=== PATIENT | female | born 1935 | race Caucasian/White ===

== ENCOUNTER 2016-06-29 13:03 | Outpatient (CLI) | payer MEDICARE, OTHER | END 2016-06-29 13:04 | disposition home or self-care (01) | DX: E11.39 Type 2 diabetes mellitus with other diabetic ophthalmic complication (principal) ==

== ENCOUNTER 2016-09-11 14:45 | Outpatient (CLI) | payer MEDICARE, OTHER | END 2016-09-11 14:46 | disposition home or self-care (01) | LOC: LAB.R 14:45 | PROVIDERS: ATTEND Family Medicine | DX: R41.0 Disorientation, unspecified (principal) | CPT/HCPCS: 87086 ==

== ENCOUNTER 2016-09-11 15:02 | Outpatient (CLI) | payer MEDICARE, OTHER ==
[2016-09-11 19:20] LABS: BASOPHILS # (AUTO) 0.1 10^3/uL (0.0-0.1); BASOPHILS % (AUTO) 0.8 %; EOSINOPHILS # (AUTO) 0.2 10^3/uL (0.0-0.7); EOSINOPHILS % (AUTO) 1.8 %; HCT - HEMATOCRIT 40.2 % (37.0-47.0); HGB - HEMOGLOBIN 13.1 g/dL (12.0-16.0); LYMPHOCYTES # (AUTO) 3.6 10^3/uL (1.5-3.5); LYMPHOCYTES % (AUTO) 41.5 %; MEAN CORPUSCULAR HGB CONC 32.7 g/dL (32.0-36.0); MEAN CORPUSCULAR VOLUME 94.7 fL (81.0-99.0); MEAN PLATELET VOLUME 7.7 fL (7.9-10.8); MONOCYTES # (AUTO) 0.6 10^3/uL (0.0-1.0); NEUTROPHILS # (AUTO) 4.2 10^3/uL (1.5-6.6); NEUTROPHILS % (AUTO) 48.9 %; NUCLEATED RED BLOOD CELLS AUTO 0.1 /100WBC; RED BLOOD COUNT 4.25 10^6/uL (4.20-5.40); RED CELL DISTRIBUTION WIDTH 13.1 % (12.0-15.0); UNCORRECTED WHITE BLOOD COUNT 8.6 x10^3/uL; WHITE BLOOD COUNT 8.6 x10^3/uL (4.8-10.8)
[2016-09-11 19:29] LABS: ALBUMIN/GLOBULIN RATIO 1.4 (1.0-2.2); BILIRUBIN,TOTAL 0.5 mg/dL (0.2-1.0); CALCIUM 9.9 mg/dL (8.5-10.3); CREATININE 0.6 mg/dL (0.4-1.0); POTASSIUM 4.2 mmol/L (3.5-5.0); TOTAL PROTEIN 7.2 g/dL (6.7-8.2)
[2016-09-11 19:34] LABS: HEMOGLOBIN A1C 1.15 g/dL
== END 2016-09-11 23:59 | disposition home or self-care (01) ==
LOC: LAB.WCP 15:02
PROVIDERS: ATTEND Family Medicine
DX: R41.0 Disorientation, unspecified (principal)
CPT/HCPCS: 36415; 80053; 83036; 85025; 87086

== ENCOUNTER 2016-12-14 16:15 | Outpatient (CLI) | payer MEDICARE, OTHER | END 2016-12-14 16:16 | LOC: LAB.R 16:15 | PROVIDERS: ATTEND Family Medicine | DX: R41.0 Disorientation, unspecified (principal) | CPT/HCPCS: 87086 ==

== ENCOUNTER 2017-09-05 11:20 | Outpatient (CLI) | payer MEDICARE, OTHER | END 2017-09-05 11:21 | disposition critical access hospital (66) | LOC: EMS 11:20 | PROVIDERS: ATTEND Surgery | DX: S01.112A Laceration without foreign body of left eyelid and periocular area, initial encounter (principal); W18.30XA Fall on same level, unspecified, initial encounter; Y92.22 Religious institution as the place of occurrence of the external cause | CPT/HCPCS: A0425; A0429 ==

== ENCOUNTER 2017-09-05 11:37 | Emergency (ER) | payer MEDICARE, OTHER ==
--- NOTE | 2017-09-05 12:13 | ED Physician Documentation ---
PD HPI HEAD INJURY - Stated complaint Stated Complaint: FALL - Chief complaint Chief Complaint: Trauma Hd/Nk - History obtained from History obtained from: Patient, Family, EMS - History of Present Illness Mechanism of head injury: Fell (She slipped on gravel coming out of [facility] and fell forward injuring her head. She has no other injuries. 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 She denies any pain. She has a laceration on the forehead. Also a little scrape on the right knee but there is no pain there. 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 Neuro: Craniotomy HEENT: Cataracts - Present Medications Home Medications: Ambulatory Orders Medication Instructions Recorded Confirmed Insulin Glargine,Hum.rec.anlog 18 unit SQ QPM 07/07/13 02/01/15 [Lantus] Metformin HCl [Metformin HCl ER] 1,000 mg PO BIDWM 07/07/13 02/01/15 Pravastatin Sodium 40 mg PO QPM 07/07/13 02/01/15 Aspirin [Aspir 81] 81 mg PO DAILY 02/01/15 02/01/15 Docusate Sodium [Stool Softener] 250 mg PO DAILY 02/01/15 02/01/15 Insulin Lispro [Humalog Kwikpen] 6 unit SQ QDBREAKFAST 02/01/15 02/01/15 Insulin Lispro [Humalog Kwikpen] 8 unit SQ BIDWM 02/01/15 02/01/15 Polyethylene Glycol 3350 [Miralax] 17 gm PO DAILY PRN 02/01/15 02/01/15 - Allergies Allergies/Adverse Reactions: Allergies Allergy/AdvReac Type Severity Reaction Status Date / Time tetanus toxoid, adsorbed Allergy Unknown Verified 12/11/14 16:17 - Social History Does the pt smoke?: No Smoking Status: Never smoker Does the pt drink ETOH?: No Does the pt have substance abuse?: No - Immunizations Immunizations are current?: Yes PD ED PE NORMAL - Vitals Vital signs reviewed: Yes - General General: Alert and oriented X 3, No acute distress - HEENT HEENT: Other (There is a shallow U-shaped laceration measuring about 2-1/2 cm on the forehead with an underlying hematoma and abrasion. The anterior chamber of the right eye is opacified and she is unable to see out of it. The left pupil is round and reactive and her extraocular movements are intact. She has no diplopia looking in any direction. There is also a small lac just to the right of the right nares.) - Neck Neck: Other (She is maintained in a c-collar pending imaging given mechanism and advanced age.) - Cardiac Cardiac: RRR, No murmur - Respiratory Respiratory: No respiratory distress, Clear bilaterally - Abdomen Abdomen: Normal bowel sounds, Soft, Non tender - Back Back: No CVA TTP, No spinal TTP - Derm Derm: Normal color, Warm and dry - Extremities Extremities: No edema, No calf tenderness / cord - Neuro Neuro: Alert and oriented X 3, Normal speech - Psych Psych: Normal mood, Normal affect Results - Vitals Vitals: Vital Signs - 24 hr 09/05/17 09/05/17 11:42 13:44 Temperature 36.5 C 36.0 C L Heart Rate 90 84 Respiratory 18 18 Rate Blood Pressure 139/78 H 133/88 H O2 Saturation 93 100 Oxygen O2 Source Room air - Rads (name of study) CT Head Radiology: EMP read contemporaneously (Slight concern for NPH, old hemorrhage or cavernoma in the inferior cerebellum and a right frontal scalp contusion) CT C spoine Radiology: EMP read contemporaneously (Multilevel degenerative changes without acute disease) Procedures - Laceration (location) facial Length in cm: 3 Wound type: Other (2 cm laceration of the right forehead and 1 cm laceration near the right nares) Wound Preparation: Irrigated copiously NS Skin layer closure: Dermabond Other: No: Tetanus UTD (But held given allergy) Complexity: Simple PD MEDICAL DECISION MAKING - ED course ED course: Wounds were cleansed and Dermabonded, CT of the head and C-spine were negative, except she and the family were Counseled on the potential finding of normal pressure hydrocephalus and primary care follow-up was advised. She was ambulatory here without issue. Departure - Departure Disposition: 01 Home, Self Care Clinical Impression: Fall from ground level Facial laceration Qualifiers: Encounter type: initial encounter Qualified Code(s): S01.81XA - Laceration without foreign body of other part of head, initial encounter Concussion Qualifiers: Encounter type: initial encounter Loss of consciousness presence/duration: without LOC Qualified Code(s): S06.0X0A - Concussion without loss of consciousness, initial encounter Condition: Good Record reviewed to determine appropriate education?: Yes Instructions: ED Head Injury Closed, ED Laceration Facial Skin Glue Comments: Call your doctor to arrange a follow-up appointment, make the next available appointment. In the interim, return anytime if worse or if new symptoms develop. Your blood pressure was elevated today on check into the emergency department. This does not mean that you have hypertension, it is a common phenomenon to come to the emergency department and have elevated blood pressure. I recommend that you see your primary care physician within the week to have it rechecked when you are feeling better. Discharge Date/Time: 09/05/17 13:59
--- NOTE | 2017-09-05 13:14 | CT Report ---
EXAM: CT CERVICAL SPINE WITHOUT CONTRAST DATE: 09/05/2017 12:46 PM. HISTORY: Head injury. Neck pain. COMPARISONS: None. TECHNIQUE: Thin-section axial images were acquired of the cervical spine without contrast. Post-proce ssing: Coronal and sagittal reformats. Other: None. In accordance with CT protocol optimization, one or more of the following dose reduction techniques w ere utilized for this exam: automated exposure control, adjustment of mA and/or KV based on patient s ize, or use of iterative reconstructive technique. FINDINGS: Alignment: Minimal 1-2 mm anterolisthesis at C34 and C4-C5, likely degenerative. Alignment is otherwi se normal. Bones: No fracture or bone lesion. Interspace Levels/Facets: Multilevel moderate cervical disk and facet degeneration with disk degeneration most pronounced at C6 -C7, and facet degeneration most pronounced at the mid to lower cervical levels bilaterally. Musculature: Normal. No fatty atrophy. Other: The paravertebral and prevertebral soft tissues are unremarkable. The lung apices are clear. IMPRESSION: 1. No definite acute fracture or malalignment. 2. Multilevel cervical degeneration. [facility] Referring Provider Line: [phone] SITE ID: [id number]
--- NOTE | 2017-09-05 13:23 | CT Report ---
EXAM: CT HEAD EXAM DATE: 09/05/2017 12:46 PM. CLINICAL HISTORY: Head injury. COMPARISON: Brain MRI 07/24/2014. TECHNIQUE: Multiaxial CT images were obtained from the foramen magnum to the vertex. Reformats: Coron al. IV contrast: None. In accordance with CT protocol optimization, one or more of the following dose reduction techniques w ere utilized for this exam: automated exposure control, adjustment of mA and/or KV based on patient s ize, or use of iterative reconstructive technique. FINDINGS: Parenchyma: There is a region with coarse calcification measuring approximately 15 x 10 mm at the med ial left cerebellar hemisphere and left vermis corresponding to a previously identified region of aldo ceptibility artifact possibly site of prior hemorrhage versus cavernoma. No acute intraparenchymal he morrhage. No evidence of mass, midline shift, or CT findings of acute infarction. Cabral-white differen tiation is distinct. Moderate diffuse chronic microangiopathic white matter changes are evident. Extraaxial Spaces: Normal for age. No subdural or epidural collections identified. Ventricles: The ventricles and cortical sulci are enlarged, which may be due to volume loss, however somewhat out of proportion to the degree of sulcal widening, as before. Sinuses and orbits: Imaged paranasal sinuses, orbits, and mastoids show no significant abnormality. Bones: No evidence of fracture or calvarial defect. Other: Right frontal scalp contusion. IMPRESSION: 1. No definite acute intracranial abnormality. 2. Similar ventriculomegaly somewhat out of proportion to the degree of sulcal widening. NPH is a tona gnostic consideration. 3. Grossly similar partially calcified left inferior cerebellar/vermis lesion, possibly old hemorrhag e or cavernoma. 4. Right frontal scalp contusion. [facility] Referring Provider Line: [phone] SITE ID: [id number]
[2017-09-05 13:44] VITALS: BP 133/88
== END 2017-09-05 13:59 | disposition home or self-care (01) ==
LOC: EDUNIT# → ED 11:37
DX: S01.81XA Laceration without foreign body of other part of head, initial encounter (principal); S06.0X0A Concussion without loss of consciousness, initial encounter; W01.0XXA Fall on same level from slipping, tripping and stumbling without subsequent striking against object, initial encounter; Y92.22 Religious institution as the place of occurrence of the external cause; R03.0 Elevated blood-pressure reading, without diagnosis of hypertension; E11.9 Type 2 diabetes mellitus without complications; E78.00 Pure hypercholesterolemia, unspecified; H54.40 Blindness, one eye, unspecified eye; Z79.82 Long term (current) use of aspirin; Z79.4 Long term (current) use of insulin
CPT/HCPCS: 12013; 70450; 72125; 99283

== ENCOUNTER 2018-02-15 08:10 | Outpatient (CLI) | payer MEDICARE, OTHER ==
[2018-02-15 13:02] LABS: CALCIUM 9.9 mg/dL (8.5-10.3); CREATININE 0.6 mg/dL (0.4-1.0)
[2018-02-15 13:32] LABS: HB2 TOTAL 14.6 g/dL; HEMOGLOBIN A1C 1.09 g/dL
== END 2018-02-15 08:11 | disposition home or self-care (01) ==
LOC: LAB.WCP 08:10
PROVIDERS: ATTEND Family Medicine
DX: E11.39 Type 2 diabetes mellitus with other diabetic ophthalmic complication (principal)
CPT/HCPCS: 36415; 80048; 83036

== ENCOUNTER 2018-06-16 08:00 | Outpatient (CLI) | payer MEDICARE, OTHER ==
[2018-06-16 12:45] LABS: HB2 TOTAL 14.9 g/dL; HEMOGLOBIN A1C 1.03 g/dL; HEMOGLOBIN A1C % 8.5 % (4.6-6.2)
[2018-06-16 13:17] LABS: ALBUMIN 4.2 g/dL (3.2-5.5); ALBUMIN/GLOBULIN RATIO 1.2 (1.0-2.2); ALKALINE PHOSPHATASE 82 IU/L (42-121); ALT ALANINE AMINOTRANSFERASE 21 IU/L (10-60); AST ASPARTATE AMINOTRANSFERASE 23 IU/L (10-42); BILIRUBIN,TOTAL 0.8 mg/dL (0.2-1.0); BUN - BLOOD UREA NITROGEN 17 mg/dL (6-20); CALCIUM 9.8 mg/dL (8.5-10.3); CARBON DIOXIDE - CO2 27 mmol/L (21-32); CHLORIDE 99 mmol/L (101-111); CHOL/HDL RATIO 3.6 (<4.4); CHOLESTEROL 178 mg/dL; CREATININE 0.6 mg/dL (0.4-1.0); GFR - MDRD 96 (>89); GLUCOSE 104 mg/dL (70-100); HDL CHOLESTEROL 50 mg/dL; LDL CHOLESTEROL,CALCULATED 100 mg/dL; SODIUM 137 mmol/L (135-145); TOTAL PROTEIN 7.6 g/dL (6.7-8.2); VLDL CHOLESTEROL 28 mg/dL
== END 2018-06-16 23:59 ==
LOC: LAB.WCP 08:00
PROVIDERS: ATTEND Family Medicine
DX: E11.39 Type 2 diabetes mellitus with other diabetic ophthalmic complication (principal)
CPT/HCPCS: 36415; 80053; 80061; 83036; 83721

== ENCOUNTER 2018-09-08 11:06 | Outpatient (CLI) | payer MEDICARE, OTHER ==
--- NOTE | 2018-09-08 12:32 | XRAY Report ---
Reason: BUTTOCK PAIN Procedure Date: 09/08/2018 Accession Number: [id number] / [id number] Procedure: WCP - Pelvis 1 View CPT Code: FULL RESULT: EXAM: PELVIS RADIOGRAPHY EXAM DATE: 09/08/2018 11:01 AM. CLINICAL HISTORY: Buttock pain. COMPARISON: None. TECHNIQUE: 1 view. FINDINGS: Bones: Normal. No fracture or bone lesion. Joints: The visualized hip joints are moderately narrowed bilaterally with osteophytosis. The pubis symphysis, and sacroiliac joints are preserved. No subluxation. Soft Tissues: Chain sutures noted projecting over the pelvis and the patient is likely post ventral mesh hernia repair based on metallic retention clips. IMPRESSION: Degenerative changes of both hips. [facility]
== END 2018-09-08 11:07 | disposition home or self-care (01) ==
LOC: DI.WCP 11:06
PROVIDERS: ATTEND Family Medicine
DX: M16.0 Bilateral primary osteoarthritis of hip (principal); E11.8 Type 2 diabetes mellitus with unspecified complications
CPT/HCPCS: 36415; 72170; 80048; 83036

== ENCOUNTER 2018-09-08 11:57 | Outpatient (CLI) | payer MEDICARE, OTHER ==
[2018-09-08 19:36] LABS: CALCIUM 9.7 mg/dL (8.5-10.3); CREATININE 0.8 mg/dL (0.4-1.0)
[2018-09-08 19:37] LABS: HB2 TOTAL 14.8 g/dL; HEMOGLOBIN A1C 0.89 g/dL; HEMOGLOBIN A1C % 7.7 % (4.6-6.2)
== END 2018-09-08 11:58 | disposition home or self-care (01) ==
LOC: LAB.WCP 11:57
PROVIDERS: ATTEND Family Medicine
DX: E11.8 Type 2 diabetes mellitus with unspecified complications (principal)
CPT/HCPCS: 36415; 80048; 83036

== ENCOUNTER 2019-01-11 08:00 | Outpatient (CLI) | payer MEDICARE, OTHER ==
[2019-01-11 18:30] LABS: BASOPHILS # (AUTO) 0.1 10^3/uL (0.0-0.1); BASOPHILS % (AUTO) 0.5 %; EOSINOPHILS # (AUTO) 0.2 10^3/uL (0.0-0.7); EOSINOPHILS % (AUTO) 1.6 %; HGB - HEMOGLOBIN 13.5 g/dL (12.0-16.0); LYMPHOCYTES # (AUTO) 4.9 10^3/uL (1.5-3.5); LYMPHOCYTES % (AUTO) 39.6 %; MEAN CORPUSCULAR HEMOGLOBIN 30.4 pg (27.0-31.0); MEAN CORPUSCULAR HGB CONC 30.8 g/dL (32.0-36.0); MEAN CORPUSCULAR VOLUME 98.9 fL (81.0-99.0); MEAN PLATELET VOLUME 9.2 fL (7.9-10.8); MONOCYTES # (AUTO) 0.7 10^3/uL (0.0-1.0); MONOCYTES % (AUTO) 5.4 %; NEUTROPHILS # (AUTO) 6.6 10^3/uL (1.5-6.6); NEUTROPHILS % (AUTO) 52.5 %; PLT - PLATELET COUNT 320 10^3/uL (130-450); RED BLOOD COUNT 4.44 10^6/uL (4.20-5.40); RED CELL DISTRIBUTION WIDTH 13.4 % (12.0-15.0); WHITE BLOOD COUNT 12.5 x10^3/uL (4.8-10.8)
[2019-01-11 18:59] LABS: HB2 TOTAL 14.3 g/dL; HEMOGLOBIN A1C 0.76 g/dL
[2019-01-11 19:14] LABS: ALBUMIN/GLOBULIN RATIO 1.3 (1.0-2.2); ALKALINE PHOSPHATASE 85 IU/L (42-121); ALT ALANINE AMINOTRANSFERASE 21 IU/L (10-60); AST ASPARTATE AMINOTRANSFERASE 29 IU/L (10-42); BILIRUBIN,TOTAL 0.3 mg/dL (0.2-1.0); BUN - BLOOD UREA NITROGEN 17 mg/dL (6-20); CALCIUM 9.7 mg/dL (8.5-10.3); CARBON DIOXIDE - CO2 24 mmol/L (21-32); CHLORIDE 102 mmol/L (101-111); CHOL/HDL RATIO 3.3 (<4.4); CHOLESTEROL 170 mg/dL; CREATININE 0.9 mg/dL (0.4-1.0); GFR - MDRD 60 (>89); GLUCOSE 150 mg/dL (70-100); HDL CHOLESTEROL 51 mg/dL; LDL CHOLESTEROL,CALCULATED 80 mg/dL; LDL/HDL RATIO 1.6 (<4.4); SODIUM 136 mmol/L (135-145); TOTAL PROTEIN 7.2 g/dL (6.7-8.2); VLDL CHOLESTEROL 39 mg/dL
== END 2019-01-11 23:59 | disposition home or self-care (01) ==
LOC: LAB.WCP 08:00
PROVIDERS: ATTEND Family Medicine
DX: E11.65 Type 2 diabetes mellitus with hyperglycemia (principal)
CPT/HCPCS: 36415; 80053; 80061; 83036; 83721; 85025

== ENCOUNTER 2019-07-07 08:00 | Outpatient (CLI) | payer MEDICARE, OTHER | END 2019-07-07 23:59 | disposition home or self-care (01) | LOC: LAB.WCP 08:00 | PROVIDERS: ATTEND Family Medicine | DX: R30.0 Dysuria (principal) | CPT/HCPCS: 87077; 87086; 87181 ==

== ENCOUNTER 2019-07-08 17:11 | Outpatient (CLI) | payer MEDICARE, OTHER | END 2019-07-08 17:12 | disposition EMS.NT | LOC: EMS 17:11 | PROVIDERS: ATTEND Surgery | DX: R73.09 Other abnormal glucose (principal) ==

== ENCOUNTER 2019-07-10 17:39 | Outpatient (CLI) | payer MEDICARE, OTHER | END 2019-07-10 23:59 | disposition critical access hospital (66) | LOC: EMS 17:39 | PROVIDERS: ATTEND Surgery | DX: R06.00 Dyspnea, unspecified (principal); R05 Cough; R50.9 Fever, unspecified | CPT/HCPCS: A0425; A0427 ==

== ENCOUNTER 2019-07-10 18:00 | Inpatient (IN) | payer MEDICARE, OTHER ==
--- NOTE | 2019-07-10 18:22 | ED Physician Documentation ---
PD HPI DYSPNEA - Stated complaint Stated Complaint: DIFFICULTY BREATHING - Chief complaint Chief Complaint: Resp - History obtained from History obtained from: EMS - History of Present Illness Timing - onset: Other (This is a demented 84-year-old woman who presents from [facility]. Reportedly at her baseline she is demented but ambulatory without difficulty and feed herself. For unknown length of time she has had cough and fever. She is also been more altered than normal. 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 Neuro: Craniotomy HEENT: Cataracts - Present Medications Home Medications: Ambulatory Orders Medication Instructions Recorded Confirmed Insulin Glargine,Hum.rec.anlog 18 unit SQ QPM 07/07/13 02/01/15 [Lantus] Metformin HCl [Metformin HCl ER] 1,000 mg PO BIDWM 07/07/13 02/01/15 Pravastatin Sodium 40 mg PO QPM 07/07/13 02/01/15 Aspirin [Aspir 81] 81 mg PO DAILY 02/01/15 02/01/15 Docusate Sodium [Stool Softener] 250 mg PO DAILY 02/01/15 02/01/15 Insulin Lispro [Humalog Kwikpen] 6 unit SQ QDBREAKFAST 02/01/15 02/01/15 Insulin Lispro [Humalog Kwikpen] 8 unit SQ BIDWM 02/01/15 02/01/15 polyethylene glycoL 3350 [Miralax] 17 gm PO DAILY PRN 02/01/15 02/01/15 - Allergies Allergies/Adverse Reactions: Allergies Allergy/AdvReac Type Severity Reaction Status Date / Time tetanus toxoid, adsorbed Allergy Unknown Verified 07/10/19 18:08 - Social History Does the pt smoke?: No Smoking Status: Never smoker Does the pt drink ETOH?: No Does the pt have substance abuse?: No - Immunizations Immunizations are current?: Yes PD ED PE NORMAL - Vitals Vital signs reviewed: Yes - General General: Other (She is alert and oriented to person only not place or time or events) - HEENT HEENT: Other (Prosthetic eyeball) - Cardiac Cardiac: RRR, No murmur - Respiratory Respiratory: Other (Rhonchorous bilaterally) - Abdomen Abdomen: Normal bowel sounds, Soft, Non tender - Back Back: No CVA TTP, No spinal TTP - Derm Derm: Normal color, Warm and dry - Extremities Extremities: No edema, No calf tenderness / cord - Neuro Eye Opening: Spontaneous Motor: Obeys Commands Verbal: Confused GCS Score: 14 Results - Vitals Vitals: Vital Signs - 24 hr 07/10/19 07/10/19 18:08 18:38 Temperature 37.3 C Heart Rate 89 79 Respiratory 22 28 H Rate Blood Pressure 133/78 H 108/73 O2 Saturation 95 93 Oxygen O2 Source Room air - Labs Labs: Laboratory Tests 07/10/19 07/10/19 07/10/19 18:18 18:18 18:18 WBC 9.6 RBC 4.14 L Hgb 13.1 Hct 39.6 MCV 95.7 MCH 31.6 H MCHC 33.1 RDW 13.3 Plt Count 179 MPV 8.5 Neut # (Auto) 7.7 H Lymph # (Auto) 1.5 [place] # (Auto) 0.3 Eos # (Auto) 0.1 Baso # (Auto) 0.0 Absolute Nucleated RBC 0.00 Nucleated RBC % 0.0 Sodium 129 L Potassium 3.4 L Chloride 96 L Carbon Dioxide 22 Anion Gap 11.0 BUN 24 H Creatinine 0.6 Estimated GFR (MDRD) 96 Glucose 176 H Lactic Acid Calcium 9.1 Total Bilirubin 0.6 AST 39 ALT 18 Alkaline Phosphatase 87 B-Natriuretic Peptide 33 Total Protein 6.8 Albumin 3.5 Globulin 3.3 Albumin/Globulin Ratio 1.1 Lipase 28 Urine Color Urine Clarity Urine pH Ur Specific [place] Urine Protein Urine Glucose (UA) Urine Ketones Urine Occult Blood Urine Nitrite Urine Bilirubin Urine Urobilinogen Ur Leukocyte Esterase Urine RBC Urine WBC Ur Squamous Epith Cells Urine Bacteria Ur Microscopic Review Urine Culture Comments Influenza A (Rapid) Influenza B (Rapid) 07/10/19 07/10/19 07/10/19 18:18 18:40 18:55 WBC RBC Hgb Hct MCV MCH MCHC RDW Plt Count MPV Neut # (Auto) Lymph # (Auto) [place] # (Auto) Eos # (Auto) Baso # (Auto) Absolute Nucleated RBC Nucleated RBC % Sodium Potassium Chloride Carbon Dioxide Anion Gap BUN Creatinine Estimated GFR (MDRD) Glucose Lactic Acid 1.1 Calcium Total Bilirubin AST ALT Alkaline Phosphatase B-Natriuretic Peptide Total Protein Albumin Globulin Albumin/Globulin Ratio Lipase Urine Color YELLOW Urine Clarity CLEAR Urine pH 5.5 Ur Specific [place] >=1.030 H Urine Protein 30 H Urine Glucose (UA) 250 H Urine Ketones TRACE Urine Occult Blood TRACE-LYSE Urine Nitrite NEGATIVE Urine Bilirubin NEGATIVE Urine Urobilinogen 0.2 (NORMAL) Ur Leukocyte Esterase NEGATIVE Urine RBC 0-5 Urine WBC 0-3 Ur Squamous Epith Cells NONE SEEN Urine Bacteria None Seen Ur Microscopic Review INDICATED Urine Culture Comments NOT INDICATED Influenza A (Rapid) Negative Influenza B (Rapid) Negative - Rads (name of study) 1v chest Radiology: EMP read contemporaneously (NAD) PD MEDICAL DECISION MAKING - ED course ED course: This is an elderly 84-year-old woman who presents with hypoxemia, fever, altered mental status. Chest x-ray was negative. Coronavirus was sent. Her urine was normal. Subsequently had a CT angiogram of the chest notable for bilateral pulmonary emboli with moderate burden. No evidence for right heart strain. She was administered Lovenox. Given her advanced age and significant and persistent tachypnea she will be placed inpatient and Dr. Giordano is admitting. Departure - Departure Disposition: 66 [facility] DC/Xfer Clinical Impression: Hypoxemia Altered mental status Qualifiers: Altered mental status type: disorientation Qualified Code(s): R41.0 - Disorientation, unspecified Fever Qualifiers: Fever type: due to other condition Qualified Code(s): R50.81 - Fever presenting with conditions classified elsewhere Pulmonary embolism Qualifiers: Pulmonary embolism type: multiple subsegmental (without acute cor pulmonale) Qualified Code(s): I26.94 - Multiple subsegmental pulmonary emboli without acute cor pulmonale Condition: Serious Discharge Date/Time: 07/10/19 22:16
[2019-07-10 18:33] LABS: BASOPHILS % (AUTO) 0.2 %; EOSINOPHILS # (AUTO) 0.1 10^3/uL (0.0-0.7); EOSINOPHILS % (AUTO) 0.8 %; HGB - HEMOGLOBIN 13.1 g/dL (12.0-16.0); LYMPHOCYTES # (AUTO) 1.5 10^3/uL (1.5-3.5); LYMPHOCYTES % (AUTO) 15.6 %; MEAN CORPUSCULAR HEMOGLOBIN 31.6 pg (27.0-31.0); MEAN CORPUSCULAR HGB CONC 33.1 g/dL (32.0-36.0); MEAN CORPUSCULAR VOLUME 95.7 fL (81.0-99.0); MEAN PLATELET VOLUME 8.5 fL (7.9-10.8); MONOCYTES # (AUTO) 0.3 10^3/uL (0.0-1.0); NEUTROPHILS # (AUTO) 7.7 10^3/uL (1.5-6.6); PLT - PLATELET COUNT 179 10^3/uL (130-450); RED BLOOD COUNT 4.14 10^6/uL (4.20-5.40); RED CELL DISTRIBUTION WIDTH 13.3 % (12.0-15.0); WHITE BLOOD COUNT 9.6 x10^3/uL (4.8-10.8)
[2019-07-10 18:43] LABS: ALBUMIN 3.5 g/dL (3.2-5.5); ALBUMIN/GLOBULIN RATIO 1.1 (1.0-2.2); BILIRUBIN,TOTAL 0.6 mg/dL (0.2-1.0); CALCIUM 9.1 mg/dL (8.5-10.3); CREATININE 0.6 mg/dL (0.4-1.0); TOTAL PROTEIN 6.8 g/dL (6.7-8.2)
--- NOTE | 2019-07-10 19:08 | XRAY Report ---
Reason: dyspnea cough Procedure Date: 07/10/2019 Accession Number: [id number] / [id number] Procedure: XR - Chest 1 View X-Ray CPT Code: 28851 Final Report FULL RESULT: EXAM: CHEST RADIOGRAPHY EXAM DATE: 07/10/2019 06:34 PM. CLINICAL HISTORY: Dyspnea cough. COMPARISON: CHEST 2 VIEW PA/LAT 09/11/2016 2:23 PM. TECHNIQUE: 1 view. FINDINGS: Lungs/Pleura: Elevated left hemidiaphragm. No dense consolidation. No large effusion or pneumothorax. No pulmonary edema. Mediastinum: Heart and mediastinal contours are unremarkable. Other: None. IMPRESSION: No acute radiographic pulmonary abnormalities. [facility]
[2019-07-10 19:14] LABS: BILIRUBIN,URINE NEGATIVE (NEGATIVE); GLUCOSE, URINE (UA) 250 mg/dL (NEGATIVE); KETONES,URINE (UA) TRACE mg/dL (NEGATIVE); LEUKOCYTE ESTERASE, URINE NEGATIVE (NEGATIVE); NITRITE,URINE NEGATIVE (NEGATIVE); OCCULT BLOOD,URINE TRACE-LYSE (NEGATIVE); PH,URINE 5.5 PH (5.0-7.5); PROTEIN,URINE 30 mg/dL (NEGATIVE); UROBILINOGEN,URINE 0.2 (NORMAL) E.U./dL (NORMAL)
[2019-07-10 19:15] LABS: CLARITY,URINE CLEAR (CLEAR)
[2019-07-10] MEDS ORDERED: IOVERSOL 320 100 ML VIAL IVP ONE (20:15)
[2019-07-10 21:46] LABS: BACTERIA,URINE None Seen /HPF (None Seen); RBC,URINE 0-5 /HPF (0-5); SQUAMOUS EPITHELIAL CELL,UR NONE SEEN (<= Few)
[2019-07-10] MEDS ORDERED: ENOXAPARIN 60 MG/0.6 ML SYRINGE SUBQ STA (21:50)
[2019-07-10] MEDS ORDERED: SODIUM CHLORIDE FLUSH 0.9% 10 ML SYRINGE IVP PRN (21:59)
[2019-07-10] MEDS ORDERED: ONDANSETRON 4 MG/2 ML VIAL IVP PRN (21:59)
[2019-07-10] MEDS ORDERED: ACETAMINOPHEN 325 MG TABLET PO PRN (21:59)
[2019-07-10] MEDS ORDERED: POTASSIUM CHLORIDE 20 MEQ TABLET PO STA (22:04)
--- NOTE | 2019-07-10 22:07 | HISTORY & PHYSICAL EXAMINATION ---
Chief Complaint - Chief Complaint Chief Complaint: Shortness of breath History of Present Illness - Admitted From Admitted From:: [facility] - History Obtained From Records Reviewed: Yes History obtained from: Patient, ER Physician, ER Nurse, EMR Exam Limitations: Patient is still confused and poor historian. History of dementia. - History of Present Illness HPI Comment/Other: This is a 84-year-old female with a past medical history significant for type 2 diabetes mellitus on insulin, hypertension, dementia who presents today from [facility] due to worsening shortness of breath. Most of the history is obtained from the ER provider and nurse as the patient is a poor historian given her confusion and history of dementia. She was reportedly quite dyspneic at her assisted living facility and the staff was concerned about diminished breath sounds in the left lung field and low-grade fevers. When EMS arrived, they noted her blood glucose was in the 50s and she was more confused than usual. The patient reportedly at baseline is able to communicate well and feed herself. Initially in the emergency department, the ER provider told me that all she would say was just her name. Repeat blood glucose was elevated at greater than 200. EMS placed her on 4 L of oxygen upon their arrival and she was saturating 100%. While here in the emergency department, she saturating anywhere from 90% to 95% on room air. She is quite tachypneic with a respiratory rate in the low 30s to mid 30s. The patient herself states she does not feel short of breath and denies any chest pain. She is aware that I am a physician but she is not sure where she is at. She believes it was the year 1966. She cannot tell me what month it is. She reports no lower extremity edema or pain. She denies having a cough. Records from [facility] state that she was started on Macrobid 3 days ago for urinary tract infection. The patient denies having any difficulty urinating In the emergency department, her labs were relatively unremarkable except for sodium of 129 and a potassium of 3.4. BNP was normal as well as lactic acid. A chest x-ray is unremarkable except for an elevated left diaphragm. A CTA of the chest was obtained which showed pulmonary embolisms. She received Lovenox 60 mg in the emergency department. She was also checked for the novel coronavirus. Medicine was consulted for admission. The patient does have a POLST form which states she is a DNR with limited interventions. I did attempt to discuss goals of care with her although she is still slightly altered. She states she would like to focus on her comfort and would not want to be a full code. 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 - Past Surgical History General: reports: Bowel surgery /HAND SCRAPER: reports: Hysterectomy Neuro: reports: Craniotomy HEENT: reports: Cataracts - Family & Social History Family History Comment/Other: Unable to obtain a family history given her dementia and current confusion. Living arrangement: Assisted living Social History Notes: She resides at [facility]. I am unable to obtain any further social history given her dementia and current confusion. Meds/Allgy - Home Medications Home Medications: Ambulatory Orders Medication Instructions Recorded Confirmed Insulin Glargine,Hum.rec.anlog 18 unit SQ QPM 07/07/13 02/01/15 [Lantus] Metformin HCl [Metformin HCl ER] 1,000 mg PO BIDWM 07/07/13 02/01/15 Pravastatin Sodium 40 mg PO QPM 07/07/13 02/01/15 Aspirin [Aspir 81] 81 mg PO DAILY 02/01/15 02/01/15 Docusate Sodium [Stool Softener] 250 mg PO DAILY 02/01/15 02/01/15 Insulin Lispro [Humalog Kwikpen] 6 unit SQ QDBREAKFAST 02/01/15 02/01/15 Insulin Lispro [Humalog Kwikpen] 8 unit SQ BIDWM 02/01/15 02/01/15 polyethylene glycoL 3350 [Miralax] 17 gm PO DAILY PRN 02/01/15 02/01/15 - Allergies Allergies/Adverse Reactions: Allergies Allergy/AdvReac Type Severity Reaction Status Date / Time tetanus toxoid, adsorbed Allergy Unknown Verified 07/10/19 18:08 Review of Systems - Constitutional Constitutional: denies: Fatigue - Eyes Eyes: reports: Vision loss - Cardiovascular Cariovascular: denies: Chest pain - Respiratory Respiratory: denies: SOB at rest, SOB with exertion - Gastrointestinal Gastrointestinal: reports: Abdominal pain - Genitourinary Genitourinary: denies: Dysuria, Frequency - Neurological Neurological: denies: General weakness - All Other Systems All Other Systems: reports: Other (Review of systems is limited as the patient is confused and a poor historian.) Prior Level of Functionality: She resides at [facility] and is reportedly independent with ambulation and feeding herself. Exam - Vital Signs Reviewed Vital Signs: Yes Vital Signs: Vital Signs x48h Temp Pulse Resp BP Pulse Ox 07/10/19 18:38 79 28 H 108/73 93 07/10/19 18:08 37.3 C 89 22 133/78 H 95 - Physical Exam General Appearance: positive: Alert, Mild distress Eyes Bilateral: positive: Other (The right pupil is opacified.) ENT: positive: ENT inspection nml, Dry mucous membranes Neck: positive: Nml inspection Respiratory: positive: Other (Her breath sounds are diminished. She is tachypneic.). negative: No respiratory distress, Rales Cardiovascular: positive: Regular rate & rhythm. negative: Tachycardia, Bradycardia Abdomen: positive: Nml bowel sounds, No distention, Tenderness (Mild epigastric tenderness). negative: Guarding, Rebound Skin: positive: No rash, Warm, Dry Extremities: positive: No pedal edema Neurologic/Psychiatric: positive: Disoriented to place, Disoriented to time, Other (She is able to move all 4 extremities. There are no obvious focal motor deficits. Her speech is not slurred. She is oriented to self but is otherwise disoriented.). negative: Disoriented to person Conclusion/Plan - Problem List (1) Pulmonary embolism Conclusion/Plan: This is likely the etiology of her dyspnea. She is tachypneic in the low to mid 30s and hypoxic at times saturating down to 90% on room air. The etiology of the pulmonary embolism is not evident at the moment. We will attempt to obtain more history once the patient is more oriented. There is no evidence of her right heart strain on CTA. We will anticoagulate her with Lovenox 60 mg twice daily. Will obtain echocardiogram in the morning. Check Dopplers of the lower extremity. Check a troponin and EKG. We will monitor her on telemetry. Supplemental oxygen as needed for goal saturation greater than 92%. Given her reported fever at home, a swab was obtained from the novel coronavirus. She is afebrile since arrival to our emergency department. Qualifiers: Pulmonary embolism type: multiple subsegmental (without acute cor pulmonale) Qualified Code(s): I26.94 - Multiple subsegmental pulmonary emboli without a cute cor pulmonale (2) Altered mental status Conclusion/Plan: Suspect this is secondary to the hypoglycemic episode. Her blood sugar was as low as in the 50s. It is not greater than 150. Her mental status is improving but she still remains disoriented. She is talking more than upon her initial arrival to the emergency department.. She has no focal deficits on exam and therefore I feel a CT of the head would not be of benefit. Her LFTs are also normal should not suspect that she would have an elevated ammonia. At this time, we will continue to monitor her mental status. Avoid medications that may promote delirium. Delirium precautions. Monitor her blood glucose. Qualifiers: Altered mental status type: disorientation Qualified Code(s): R41.0 - Disorientation, unspecified (3) Type 2 diabetes mellitus with hypoglycemia Conclusion/Plan: She has type 2 diabetes mellitus for which she takes Lantus, Lispro, and metformin. She was hypoglycemic today in the 50s. Suspect this is the cause of her altered mental status.Her blood glucose is not greater than 150. We will hold her home insulin and metformin for the time being. Will resume in the morning if her blood sugar remained stable. Will check her blood sugars every 2 hours overnight. Carb controlled diet. We will check an A1c Qualifiers: Diabetes mellitus extermination supervisor insulin use: with extermination supervisor use Diabetes mellitus complication detail: without coma Qualified Code(s): E11.649 - Type 2 diabetes mellitus with hypoglycemia without coma; Z79.4 - prison (current) use of insulin (4) Hyponatremia Conclusion/Plan: This is likely hypovolemic hyponatremia she appears dry on exam. We will gently hydrate her with normal saline at 75 cc an hour. We will monitor her sodium. (5) UTI (urinary tract infection) Conclusion/Plan: He was diagnosed with a urinary tract infection approximately 3 days ago and started on Macrobid. Urinalysis today shows no suggestion of infection. Given her age, we will discontinue the Macrobid and hold off on resuming antibiotics at the moment. (6) Dementia Conclusion/Plan: Does have a history of dementia at baseline but is able to ambulate and feed herself on her own. Reportedly at baseline, she is quite talkative and able participate in conversation. She is currently altered but improving and suspect this is secondary to the hypoglycemia. We will continue to monitor her neurologic status (7) Hypertension Conclusion/Plan: She with a reported history of hypertension but is on any antihypertensives at home. She is currently normotensive. We will continue to monitor. (8) Hyperlipidemia Conclusion/Plan: She is on a statin at home which we will resume. - Lab Results Lab results reviewed: Yes Fish Bones: 07/11/19 06:28 07/10/19 18:18 - Diagnostic Imaging Results Diagnostic Imaging Results: positive: Final report reviewed, Read independently (CTA of the chest shows multiple bilateral subsegmental pulmonary embolism) Core Measures - Anticipated LOS I expect patient to be DC'd or transferred within 96 hours.: Yes - Issues Hospital Issues and Management Plan: 4-year-old female who presents with worsening dyspnea found to have pulmonary embolisms. She is quite tachypneic and hypoxic at times on room air. We will anticoagulate her with Lovenox and monitor for bleeding. She is also altered although this is improving. Suspect secondary to the hypoglycemia - DVT/VTE - Prophylaxis VTE/DVT Device ordered at admit?: No VTE/DVT Prophylaxis med ordered at admit?: Yes
[2019-07-10] MEDS ORDERED: DEXTROSE 10% 250 ML IV STA (22:42)
[2019-07-10] MEDS ORDERED: DEXTROSE 50% ABBOJECT 25 GM/50 ML SYRINGE ONE (22:50)
[2019-07-10] MEDS: SODIUM CHLORIDE 0.9% 1,000 ML IV SCH (23:01)
[2019-07-10] MEDS: SODIUM CHLORIDE FLUSH 0.9% 10 ML SYRINGE IVP SCH (23:41)
[2019-07-11] MEDS: POTASSIUM CHLOR 10 MEQ/100 ML 10 MEQ/100 ML BAG IV SCH ×2 (00:32→01:46)
--- NOTE | 2019-07-11 02:16 | Ultrasound Report ---
Reason: Pulmonary embolism. Procedure Date: 07/11/2019 Accession Number: [id number] / [id number] Procedure: US - Duplex Ext Veins Bilateral CPT Code: Final Report FULL RESULT: EXAM: BILATERAL LOWER EXTREMITY VENOUS ULTRASOUND EXAM DATE: 07/11/2019 01:30 AM CLINICAL HISTORY: Known pulmonary emboli, evaluate for embolic source. COMPARISON: 07/10/2019 8:36 PM. TECHNIQUE: Real-time sonographic vascular imaging was performed by the 3rd pressman through the lower extremities utilizing both color-flow and Doppler spectral analysis. Multiple tax compliance representative static images were saved for review. FINDINGS: Right: Common Femoral Vein (CFV): Normal. CFV-GSV Junction: Normal. Profunda Femoral Vein (PFV): Normal. Femoral Vein (FV) Prox: Normal. Femoral Vein (FV) Mid: Normal. Femoral Vein (FV) Dist: Normal. Popliteal Vein: Thrombosed. Posterior Tibial Veins: Thrombosed. Peroneal Veins: Thrombosed. Left: Common Femoral Vein (CFV): Partially thrombosed. Profunda Femoral Vein (PFV): Thrombosed. Femoral Vein (FV) Prox: Normal. Femoral Vein (FV) Mid: Normal. Femoral Vein (FV) Dist: Thrombosed. Popliteal Vein: Thrombosed. Posterior Tibial Veins: Thrombosed. Peroneal Veins: Thrombosed. Other: Approximately 3 x 0.5 x 1 cm right popliteal cyst. IMPRESSION: Exam positive for deep venous thrombosis bilaterally. RADIA
--- NOTE | 2019-07-11 06:27 | CT Report ---
Reason: DYSPNEA, PE PROTOCOL Procedure Date: 07/10/2019 Accession Number: [id number] / [id number] Procedure: CT - ANGIO CHEST W/WO CPT Code: Final Report FULL RESULT: EXAM: CT ANGIOGRAM CHEST. EXAM DATE: 07/10/2019 08:36 PM. CLINICAL HISTORY: Dyspnea. COMPARISON: CHEST 2 VIEW PA/LAT 09/11/2016 2:23 PM. TECHNIQUE: Routine helical imaging was performed through the chest in the pulmonary arterial phase. IV Contrast: OPTI-320, 80 mL. Reconstructions: Coronal 3-D MIP reconstructions. Sagittal and coronal. In accordance with CT protocol optimization, one or more of the following dose reduction techniques were utilized for this exam: automated exposure control, adjustment of mA and/or KV based on patient size, or use of iterative reconstructive technique. FINDINGS: Mediastinum: Positive for pulmonary emboli seen in the right main pulmonary artery extending into the right upper, middle and lower lobar pulmonary arteries. Segmental pulmonary emboli seen in the right upper pulmonary arteries. Left upper lobe anterior segmental and subsegmental pulmonary embolus. Motion artifact limits exam. No saddle embolus. No evidence for cor pulmonale. Mitral annular calcification. Coronary artery calcification is noted. No cardiomegaly. No mediastinal or hilar lymphadenopathy. No thoracic aortic aneurysm. Lungs: Motion artifact limited. Minimal bilateral lower lobe posterior consolidation most suggestive for atelectasis. Motion artifact limits the exam and lung infarction or infiltrate are not excluded. No pneumothorax. No pleural effusion. Upper abdomen: Calcified granuloma seen in the spleen. No acute findings are seen. Mild T11 superior endplate compression fracture with sclerosis, appears more chronic or subacute to chronic. IMPRESSION: 1. Positive for bilateral pulmonary emboli as described above, overall moderate pulmonary emboli burden. No evidence for cor pulmonale. 2. Motion artifact limits the exam and lung infarction or infiltrate are not excluded. 3.Mild T11 superior endplate compression fracture with sclerosis, appears more chronic or subacute to chronic. 4. See above. RADIA The critical result notification system was initiated by Dr. Aleisha Lind at 09:45 PM on 07/10/2019. The above critical result findings were discussed with Latha by Dr. Aleisha Lind at 09:48 PM on 07/10/2019.
[2019-07-11 06:39] LABS: BASOPHILS % (AUTO) 0.3 %; EOSINOPHILS # (AUTO) 0.2 10^3/uL (0.0-0.7); EOSINOPHILS % (AUTO) 3.5 %; HGB - HEMOGLOBIN 12.5 g/dL (12.0-16.0); LYMPHOCYTES # (AUTO) 2.3 10^3/uL (1.5-3.5); LYMPHOCYTES % (AUTO) 33.8 %; MEAN CORPUSCULAR HEMOGLOBIN 32.1 pg (27.0-31.0); MEAN CORPUSCULAR HGB CONC 33.2 g/dL (32.0-36.0); MEAN CORPUSCULAR VOLUME 96.7 fL (81.0-99.0); MEAN PLATELET VOLUME 8.3 fL (7.9-10.8); MONOCYTES # (AUTO) 0.5 10^3/uL (0.0-1.0); MONOCYTES % (AUTO) 6.6 %; NEUTROPHILS # (AUTO) 3.8 10^3/uL (1.5-6.6); NEUTROPHILS % (AUTO) 55.4 %; PLT - PLATELET COUNT 156 10^3/uL (130-450); RED CELL DISTRIBUTION WIDTH 13.3 % (12.0-15.0); WHITE BLOOD COUNT 6.9 x10^3/uL (4.8-10.8)
[2019-07-11 06:53] LABS: HB2 TOTAL 13.1 g/dL; HEMOGLOBIN A1C 0.59 g/dL; HEMOGLOBIN A1C % 6.3 % (4.6-6.2)
[2019-07-11 06:55] LABS: CREATININE 0.6 mg/dL (0.4-1.0); MAGNESIUM 1.7 mg/dL (1.7-2.8); PHOSPHORUS 2.9 mg/dL (2.5-4.6)
--- NOTE | 2019-07-11 08:40 | PHARMACY PROGRESS NOTE ---
- Best Possible Medication History Admit Date and Time: 07/10/19 2585 Processed by: Pharmacy Medication History completed: In progress Patient Interview: Pt unable to participate Secondary Source(s): Physician records, Pharmacy records, Insurance records [facility] used in addition to above sources. As the person ultimately responsible for medication therapy, providers are able to order a medication from an existing home medication list in [facility] via the "Reconcile Routine" prior to Confirmation of that medication by software support engineer. Such practice is discouraged except when the physician, in their clinical judgment, deems that a medical need exists for a medication without regard to previous use.
[2019-07-11] MEDS: ENOXAPARIN 60 MG/0.6 ML SYRINGE SUBQ SCH ×2 (09:09→21:19)
[2019-07-11] MEDS: SODIUM CHLORIDE FLUSH 0.9% 10 ML SYRINGE IVP SCH ×2 (09:09→17:01)
[2019-07-11] MEDS ORDERED: IOVERSOL 320 100 ML VIAL IVP ONE (11:38)
--- NOTE | 2019-07-11 12:45 | PROVIDER PROGRESS NOTE ---
Subjective - Prog Note Date Prog Note Date: 07/11/19 - Subjective Pt reports feeling: Improved Subjective: pt is comfortable sleeping. clinic pt did not present respiratory distress or SOB now. pt has no fever, chill. pt has 96% sat on 2 liter of O2. Current Medications - Current Medications Current Medications: Active Medications Acetaminophen (Tylenol) 650 mg PO Q4HR PRN PRN Reason: Pain 1 to 4 Enoxaparin Sodium (Lovenox) 60 mg SUBQ BID [facility] Last Admin: 07/11/19 09:09 Dose: 60 mg Sodium Chloride (Normal Saline 0.9%) 1,000 mls @ 75 mls/hr IV .[id number] [facility] Last Admin: 07/11/19 12:47 Dose: 75 mls/hr Ondansetron HCl (Zofran Inj) 4 mg IVP Q6HR PRN PRN Reason: Nausea / Vomiting Sodium Chloride (Normal Saline Flush 0.9%) 10 ml IVP PRN PRN PRN Reason: NEEDED PER PROVIDER ORDERS Sodium Chloride (Normal Saline Flush 0.9%) 10 ml IVP 0100,0900,1700 [facility] Last Admin: 07/11/19 09:09 Dose: Not Given Insulin Glargine,Hum.rec.anlog [Lantus] 25 unit SQ QPM 07/07/13 Metformin HCl [Metformin HCl ER] 1,000 mg PO BIDWM 07/07/13 Aspirin [Aspir 81] 81 mg PO DAILY 02/01/15 Docusate Sodium [Stool Softener] 250 mg PO BID PRN 02/01/15 Insulin Lispro [Humalog Kwikpen] 12 unit SQ QDBREAKFAST 02/01/15 Insulin Lispro [Humalog Kwikpen] 14 unit SQ QDLUNCH 02/01/15 polyethylene glycoL 3350 [Miralax] 17 gm PO Q2D PRN 02/01/15 Insulin Lispro [Humalog Kwikpen U-100] 2 - 6 unit SUBQ TIDWM PRN 07/11/19 Insulin Lispro [Humalog Kwikpen U-100] 20 unit SUBQ QDDINNER 07/11/19 Pravastatin [Pravachol] 40 mg PO QPM 07/11/19 Objective - Vital Signs/Intake & Output Reviewed Vital Signs: Yes Vital Signs: Vital Signs x48h Temp Pulse Resp BP BP Pulse Ox 07/11/19 12:44 36.4 C L 69 18 112/62 93 07/11/19 08:10 36.3 C L 68 24 116/68 96 07/11/19 05:11 73 18 126/85 H Intake & Output: Intake & Output 07/08/19 07/09/19 07/10/19 07/11/19 23:59 23:59 23:59 23:59 Intake Total 250 721.25 Balance 250 721.25 - Objective General Appearance: positive: No acute distress, Alert Eyes Bilateral: positive: Normal inspection, PERRL ENT: positive: ENT inspection nml, Pharynx nml, No signs of dehydration. n egative: Purulent nasal drainage Neck: positive: Nml inspection, Thyroid nml, No JVD, Trachea midline. negative: Thyromegaly, Lymphadenopathy (R), Lymphadenopathy (L), Stiff neck, Tracheal deviation Respiratory: positive: Chest non-tender, No respiratory distress. negative: Wheezes, Rales, Rhonchi Cardiovascular: positive: Regular rate & rhythm, No murmur, No gallop. negative: Irregularly irregular, Extrasystoles, Tachycardia, Bradycardia, JVD present, Systolic murmur, Diastolic murmur Peripheral Pulses: 2+ Radial (R), 2+ Radial (L), 2+ Dorsalis pedis (R), 2+ Dorsalis pedis (L) Abdomen: positive: Non-tender, No organomegaly, Nml bowel sounds, No distention. negative: Tenderness, Guarding, Rebound Back: positive: Nml inspection. negative: CVA tenderness (R), CVA tenderness (L) Skin: positive: Color nml, No rash, Warm, Dry. negative: Cyanosis, Diaphoresis, Pallor Extremities: positive: Non-tender, Nml appearance. negative: Calf tenderness, Marco's sign/cords Neurologic/Psychiatric: positive: Sensation nml. negative: Weakness, Sensory loss, Facial droop, Slurred/abnml speech - Lab Results Fish Bones: 07/11/19 06:28 07/11/19 06:28 Other Labs: Lab Results x24hrs 07/11/19 07/11/19 07/11/19 Range/Units 06:28 06:28 06:28 WBC 6.9 (4.8-10.8) x10^3/uL RBC 3.90 L (4.20-5.40) 10^6/uL Hgb 12.5 (12.0-16.0) g/dL Hct 37.7 (37.0-47.0) % MCV 96.7 (81.0-99.0) fL MCH 32.1 H (27.0-31.0) pg MCHC 33.2 (32.0-36.0) g/dL RDW 13.3 (12.0-15.0) % Plt Count 156 (130-450) 10^3/uL MPV 8.3 (7.9-10.8) fL Neut # (Auto) 3.8 (1.5-6.6) 10^3/uL Lymph # (Auto) 2.3 (1.5-3.5) 10^3/uL [place] # (Auto) 0.5 (0.0-1.0) 10^3/uL Eos # (Auto) 0.2 (0.0-0.7) 10^3/uL Baso # (Auto) 0.0 (0.0-0.1) 10^3/uL Absolute Nucleated RBC 0.00 x10^3/uL Nucleated RBC % 0.0 /100WBC Sodium 133 L (135-145) mmol/L Potassium 3.6 (3.5-5.0) mmol/L Chloride 100 L (101-111) mmol/L Carbon Dioxide 23 (21-32) mmol/L Anion Gap 10.0 (6-13) BUN 18 (6-20) mg/dL Creatinine 0.6 (0.4-1.0) mg/dL Estimated GFR (MDRD) 96 (>89) Glucose 115 H (70-100) mg/dL Glycated Hemoglobin 6.3 H (4.6-6.2) % Estim Average Glucose 134 H (70-100) Lactic Acid (0.5-2.2) mmol/L Calcium 9.0 (8.5-10.3) mg/dL Phosphorus 2.9 (2.5-4.6) mg/dL Magnesium 1.7 (1.7-2.8) mg/dL Total Bilirubin (0.2-1.0) mg/dL AST (10-42) IU/L ALT (10-60) IU/L Alkaline Phosphatase (42-121) IU/L Troponin I High Sens (2.3-14.8) ng/L B-Natriuretic Peptide (5-100) pg/mL Total Protein (6.7-8.2) g/dL Albumin (3.2-5.5) g/dL Globulin (2.1-4.2) g/dL Albumin/Globulin Ratio (1.0-2.2) Lipase (22-51) U/L Urine Color Urine Clarity (CLEAR) Urine pH (5.0-7.5) PH Ur Specific [place] (1.002-1.030) Urine Protein (NEGATIVE) mg/dL Urine Glucose (UA) (NEGATIVE) mg/dL Urine Ketones (NEGATIVE) mg/dL Urine Occult Blood (NEGATIVE) Urine Nitrite (NEGATIVE) Urine Bilirubin (NEGATIVE) Urine Urobilinogen (NORMAL) E.U./dL Ur Leukocyte Esterase (NEGATIVE) Urine RBC (0-5) /HPF Urine WBC (0-5) /HPF Ur Squamous Epith Cells (<= Few) Urine Bacteria (None Seen) /HPF Ur Microscopic Review Urine Culture Comments Influenza A (Rapid) (Negative) Influenza B (Rapid) (Negative) 07/10/19 07/10/19 07/10/19 Range/Units 18:55 18:40 18:18 WBC (4.8-10.8) x10^3/uL RBC (4.20-5.40) 10^6/uL Hgb (12.0-16.0) g/dL Hct (37.0-47.0) % MCV (81.0-99.0) fL MCH (27.0-31.0) pg MCHC (32.0-36.0) g/dL RDW (12.0-15.0) % Plt Count (130-450) 10^3/uL MPV (7.9-10.8) fL Neut # (Auto) (1.5-6.6) 10^3/uL Lymph # (Auto) (1.5-3.5) 10^3/uL [place] # (Auto) (0.0-1.0) 10^3/uL Eos # (Auto) (0.0-0.7) 10^3/uL Baso # (Auto) (0.0-0.1) 10^3/uL Absolute Nucleated RBC x10^3/uL Nucleated RBC % /100WBC Sodium (135-145) mmol/L Potassium (3.5-5.0) mmol/L Chloride (101-111) mmol/L Carbon Dioxide (21-32) mmol/L Anion Gap (6-13) BUN (6-20) mg/dL Creatinine (0.4-1.0) mg/dL Estimated GFR (MDRD) (>89) Glucose (70-100) mg/dL Glycated Hemoglobin (4.6-6.2) % Estim Average Glucose (70-100) Lactic Acid 1.1 (0.5-2.2) mmol/L Calcium (8.5-10.3) mg/dL Phosphorus (2.5-4.6) mg/dL Magnesium (1.7-2.8) mg/dL Total Bilirubin (0.2-1.0) mg/dL AST (10-42) IU/L ALT (10-60) IU/L Alkaline Phosphatase (42-121) IU/L Troponin I High Sens (2.3-14.8) ng/L B-Natriuretic Peptide (5-100) pg/mL Total Protein (6.7-8.2) g/dL Albumin (3.2-5.5) g/dL Globulin (2.1-4.2) g/dL Albumin/Globulin Ratio (1.0-2.2) Lipase (22-51) U/L Urine Color YELLOW Urine Clarity CLEAR (CLEAR) Urine pH 5.5 (5.0-7.5) PH Ur Specific [place] >=1.030 H (1.002-1.030) Urine Protein 30 H (NEGATIVE) mg/dL Urine Glucose (UA) 250 H (NEGATIVE) mg/dL Urine Ketones TRACE (NEGATIVE) mg/dL Urine Occult Blood TRACE-LYSE (NEGATIVE) Urine Nitrite NEGATIVE (NEGATIVE) Urine Bilirubin NEGATIVE (NEGATIVE) Urine Urobilinogen 0.2 (NORMAL) (NORMAL) E.U./dL Ur Leukocyte Esterase NEGATIVE (NEGATIVE) Urine RBC 0-5 (0-5) /HPF Urine WBC 0-3 (0-5) /HPF Ur Squamous Epith Cells NONE SEEN (<= Few) Urine Bacteria None Seen (None Seen) /HPF Ur Microscopic Review INDICATED Urine Culture Comments NOT INDICATED Influenza A (Rapid) Negative (Negative) Influenza B (Rapid) Negative (Negative) 07/10/19 07/10/19 07/10/19 Range/Units 18:18 18:18 18:18 WBC 9.6 (4.8-10.8) x10^3/uL RBC 4.14 L (4.20-5.40) 10^6/uL Hgb 13.1 (12.0-16.0) g/dL Hct 39.6 (37.0-47.0) % MCV 95.7 (81.0-99.0) fL MCH 31.6 H (27.0-31.0) pg MCHC 33.1 (32.0-36.0) g/dL RDW 13.3 (12.0-15.0) % Plt Count 179 (130-450) 10^3/uL MPV 8.5 (7.9-10.8) fL Neut # (Auto) 7.7 H (1.5-6.6) 10^3/uL Lymph # (Auto) 1.5 (1.5-3.5) 10^3/uL [place] # (Auto) 0.3 (0.0-1.0) 10^3/uL Eos # (Auto) 0.1 (0.0-0.7) 10^3/uL Baso # (Auto) 0.0 (0.0-0.1) 10^3/uL Absolute Nucleated RBC 0.00 x10^3/uL Nucleated RBC % 0.0 /100WBC Sodium 129 L (135-145) mmol/L Potassium 3.4 L (3.5-5.0) mmol/L Chloride 96 L (101-111) mmol/L Carbon Dioxide 22 (21-32) mmol/L Anion Gap 11.0 (6-13) BUN 24 H (6-20) mg/dL Creatinine 0.6 (0.4-1.0) mg/dL Estimated GFR (MDRD) 96 (>89) Glucose 176 H (70-100) mg/dL Glycated Hemoglobin (4.6-6.2) % Estim Average Glucose (70-100) Lactic Acid (0.5-2.2) mmol/L Calcium 9.1 (8.5-10.3) mg/dL Phosphorus (2.5-4.6) mg/dL Magnesium (1.7-2.8) mg/dL Total Bilirubin 0.6 (0.2-1.0) mg/dL AST 39 (10-42) IU/L ALT 18 (10-60) IU/L Alkaline Phosphatase 87 (42-121) IU/L Troponin I High Sens (2.3-14.8) ng/L B-Natriuretic Peptide 33 (5-100) pg/mL Total Protein 6.8 (6.7-8.2) g/dL Albumin 3.5 (3.2-5.5) g/dL Globulin 3.3 (2.1-4.2) g/dL Albumin/Globulin Ratio 1.1 (1.0-2.2) Lipase 28 (22-51) U/L Urine Color Urine Clarity (CLEAR) Urine pH (5.0-7.5) PH Ur Specific [place] (1.002-1.030) Urine Protein (NEGATIVE) mg/dL Urine Glucose (UA) (NEGATIVE) mg/dL Urine Ketones (NEGATIVE) mg/dL Urine Occult Blood (NEGATIVE) Urine Nitrite (NEGATIVE) Urine Bilirubin (NEGATIVE) Urine Urobilinogen (NORMAL) E.U./dL Ur Leukocyte Esterase (NEGATIVE) Urine RBC (0-5) /HPF Urine WBC (0-5) /HPF Ur Squamous Epith Cells (<= Few) Urine Bacteria (None Seen) /HPF Ur Microscopic Review Urine Culture Comments Influenza A (Rapid) (Negative) Influenza B (Rapid) (Negative) 07/10/19 Range/Units 11:25 WBC (4.8-10.8) x10^3/uL RBC (4.20-5.40) 10^6/uL Hgb (12.0-16.0) g/dL Hct (37.0-47.0) % MCV (81.0-99.0) fL MCH (27.0-31.0) pg MCHC (32.0-36.0) g/dL RDW (12.0-15.0) % Plt Count (130-450) 10^3/uL MPV (7.9-10.8) fL Neut # (Auto) (1.5-6.6) 10^3/uL Lymph # (Auto) (1.5-3.5) 10^3/uL [place] # (Auto) (0.0-1.0) 10^3/uL Eos # (Auto) (0.0-0.7) 10^3/uL Baso # (Auto) (0.0-0.1) 10^3/uL Absolute Nucleated RBC x10^3/uL Nucleated RBC % /100WBC Sodium (135-145) mmol/L Potassium (3.5-5.0) mmol/L Chloride (101-111) mmol/L Carbon Dioxide (21-32) mmol/L Anion Gap (6-13) BUN (6-20) mg/dL Creatinine (0.4-1.0) mg/dL Estimated GFR (MDRD) (>89) Glucose (70-100) mg/dL Glycated Hemoglobin (4.6-6.2) % Estim Average Glucose (70-100) Lactic Acid (0.5-2.2) mmol/L Calcium (8.5-10.3) mg/dL Phosphorus (2.5-4.6) mg/dL Magnesium (1.7-2.8) mg/dL Total Bilirubin (0.2-1.0) mg/dL AST (10-42) IU/L ALT (10-60) IU/L Alkaline Phosphatase (42-121) IU/L Troponin I High Sens 4.2 (2.3-14.8) ng/L B-Natriuretic Peptide (5-100) pg/mL Total Protein (6.7-8.2) g/dL Albumin (3.2-5.5) g/dL Globulin (2.1-4.2) g/dL Albumin/Globulin Ratio (1.0-2.2) Lipase (22-51) U/L Urine Color Urine Clarity (CLEAR) Urine pH (5.0-7.5) PH Ur Specific [place] (1.002-1.030) Urine Protein (NEGATIVE) mg/dL Urine Glucose (UA) (NEGATIVE) mg/dL Urine Ketones (NEGATIVE) mg/dL Urine Occult Blood (NEGATIVE) Urine Nitrite (NEGATIVE) Urine Bilirubin (NEGATIVE) Urine Urobilinogen (NORMAL) E.U./dL Ur Leukocyte Esterase (NEGATIVE) Urine RBC (0-5) /HPF Urine WBC (0-5) /HPF Ur Squamous Epith Cells (<= Few) Urine Bacteria (None Seen) /HPF Ur Microscopic Review Urine Culture Comments Influenza A (Rapid) (Negative) Influenza B (Rapid) (Negative) ABX Reporting Has patient been on IV antibiotics over the past 48 hours?: No Sepsis Event Note (H) - Evaluation Current Stage of Sepsis: Ruled out Assessment/Plan - Problem List (1) Pulmonary embolism Impression: 07/10 pt seems no respiratory distress, ECHO did not reveals right heart strain. pt has positive for DVT. it is unknown why pt present DVT, what is major risk factor pt had DVT. continue Lovenox. after 48 hours on Lovenox then will switch to Eliquis pt continue no fever, chill, WBC is normal now. Covid 19 is still pending (2) Altered mental status 07/10, pt's mental status is better and stable as her baseline now. hypoglycemia was considered to be the major cause of AMS. now her glucose is normal. continue ACHS to check glucose level and neur check with pt (3) Type 2 diabetes mellitus with hypoglycemia pt present hypoglycemia, pt took both insulin and metformin at home. pt has 6.3 A1C. since pt has significant hypoglycemia and advanced dementia, will hold pt's insulin and continue Metformin and followup PCP to monitor pt's glucose level to prevention of hypoglycemia in the d/c charge. in hospital now we hold insulin and continue monitor ACHS glucose level (4) Hyponatremia Conclusion/Plan: improved. Na is 133 now. This is likely hypovolemic hyponatremia she appears dry on exam. We will gently hydrate her with normal saline at 75 cc an hour. We will monitor her sodium. (5) Dementia Conclusion/Plan: 07/10 stable, continue support and monitor (6) Hypertension Conclusion/Plan: stable (7) Hyperlipidemia Conclusion/Plan: stable Qualifiers: Pulmonary embolism type: multiple subsegmental (without acute cor pulmonale) Qualified Code(s): I26.94 - Multiple subsegmental pulmonary emboli without acute cor pulmonale
[2019-07-11] MEDS: SODIUM CHLORIDE 0.9% 1,000 ML IV SCH (12:47)
[2019-07-12] MEDS: SODIUM CHLORIDE 0.9% 1,000 ML IV SCH (01:50)
[2019-07-12] MEDS: SODIUM CHLORIDE FLUSH 0.9% 10 ML SYRINGE IVP SCH ×3 (01:51→17:28)
[2019-07-12 05:12] LABS: BASOPHILS % (AUTO) 0.5 %; EOSINOPHILS # (AUTO) 0.2 10^3/uL (0.0-0.7); HGB - HEMOGLOBIN 12.1 g/dL (12.0-16.0); LYMPHOCYTES # (AUTO) 2.3 10^3/uL (1.5-3.5); LYMPHOCYTES % (AUTO) 37.9 %; MEAN CORPUSCULAR HEMOGLOBIN 31.3 pg (27.0-31.0); MEAN CORPUSCULAR HGB CONC 32.2 g/dL (32.0-36.0); MEAN CORPUSCULAR VOLUME 97.4 fL (81.0-99.0); MEAN PLATELET VOLUME 8.8 fL (7.9-10.8); MONOCYTES # (AUTO) 0.4 10^3/uL (0.0-1.0); NEUTROPHILS # (AUTO) 3.1 10^3/uL (1.5-6.6); NEUTROPHILS % (AUTO) 51.3 %; PLT - PLATELET COUNT 183 10^3/uL (130-450); RED BLOOD COUNT 3.86 10^6/uL (4.20-5.40); RED CELL DISTRIBUTION WIDTH 13.1 % (12.0-15.0)
[2019-07-12 05:13] LABS: CALCIUM 8.9 mg/dL (8.5-10.3); CREATININE 0.6 mg/dL (0.4-1.0)
[2019-07-12] MEDS: SENNA 8.6 MG TABLET PO SCH (09:15)
[2019-07-12] MEDS: DOCUSATE SODIUM 250 MG CAPSULE PO SCH (09:15)
[2019-07-12] MEDS: ENOXAPARIN 60 MG/0.6 ML SYRINGE SUBQ SCH ×2 (09:17→21:11)
--- NOTE | 2019-07-12 10:10 | PROVIDER PROGRESS NOTE ---
Subjective - Prog Note Date Prog Note Date: 07/12/19 - Subjective Pt reports feeling: Improved Subjective: pt is alert, oriented to herself and location. she is comfortable eating her breakfast. she denies fever, chill, shortness of breath, chest pain. Tomorrow morning it will be 48 hours on Lovenox, we will switch to PO blood thinner, adjust her insulin for her hypoglycemia. discussed with pt's PCP and suggest pt might need sleep study for her big sn oring sleep pattern, her PCP agreed to send pt for sleep study. Current Medications - Current Medications Current Medications: Active Medications Acetaminophen (Tylenol) 650 mg PO Q4HR PRN PRN Reason: Pain 1 to 4 Docusate Sodium (Colace 250mg Capsule) 250 - 500 mg PO DAILY [facility] Last Admin: 07/12/19 09:15 Dose: 250 mg Enoxaparin Sodium (Lovenox) 60 mg SUBQ BID [facility] Last Admin: 07/12/19 09:17 Dose: 60 mg Sodium Chloride (Normal Saline 0.9%) 1,000 mls @ 75 mls/hr IV .[id number] [facility] Last Admin: 07/12/19 01:50 Dose: 75 mls/hr Insulin Aspart (Novolog) 1 - 9 unit SUBQ 0800,1200,1700,2100 [facility]; Protocol Ondansetron HCl (Zofran Inj) 4 mg IVP Q6HR PRN PRN Reason: Nausea / Vomiting Senna (Senokot) 8.6 - 17.2 mg PO DAILY [facility] Last Admin: 07/12/19 09:15 Dose: 8.6 mg Sodium Chloride (Normal Saline Flush 0.9%) 10 ml IVP PRN PRN PRN Reason: NEEDED PER PROVIDER ORDERS Sodium Chloride (Normal Saline Flush 0.9%) 10 ml IVP 0100,0900,1700 [facility] Last Admin: 07/12/19 09:17 Dose: Not Given Insulin Glargine,Hum.rec.anlog [Lantus] 25 unit SQ QPM 07/07/13 Metformin HCl [Metformin HCl ER] 1,000 mg PO BIDWM 07/07/13 Aspirin [Aspir 81] 81 mg PO DAILY 02/01/15 Docusate Sodium [Stool Softener] 250 mg PO BID PRN 02/01/15 Insulin Lispro [Humalog Kwikpen] 12 unit SQ QDBREAKFAST 02/01/15 Insulin Lispro [Humalog Kwikpen] 14 unit SQ QDLUNCH 02/01/15 polyethylene glycoL 3350 [Miralax] 17 gm PO Q2D PRN 02/01/15 Insulin Lispro [Humalog Kwikpen U-100] 2 - 6 unit SUBQ TIDWM PRN 07/11/19 Insulin Lispro [Humalog Kwikpen U-100] 20 unit SUBQ QDDINNER 07/11/19 Pravastatin [Pravachol] 40 mg PO QPM 07/11/19 Objective - Vital Signs/Intake & Output Vital Signs: Vital Signs x48h Temp Pulse Pulse Resp BP BP Pulse Ox 07/12/19 08:11 36.7 C 70 20 94 07/12/19 07:56 36.7 C 70 16 118/69 94 07/12/19 03:32 37.0 C 68 14 136/76 H 99 Intake & Output: Intake & Output 07/09/19 07/10/19 07/11/19 07/12/19 23:59 23:59 23:59 23:59 Intake Total 250 1350.00 978.75 Output Total 500 400 Balance 250 850.00 578.75 - Objective General Appearance: positive: No acute distress, Alert. negative: Lethargic Eyes Bilateral: positive: Normal inspection, PERRL, No lid inflammation ENT: positive: ENT inspection nml, Pharynx nml, No signs of dehydration. negative: Purulent nasal drainage Neck: positive: Nml inspection, Thyroid nml, No JVD, Trachea midline. negative: Thyromegaly, Lymphadenopathy (R), Lymphadenopathy (L), Stiff neck, Tracheal deviation Respiratory: positive: Chest non-tender, No respiratory distress, Breath sounds nml. negative: Wheezes, Rales, Rhonchi Cardiovascular: positive: Regular rate & rhythm, No murmur, No gallop. negative: Irregularly irregular, Extrasystoles, Tachycardia, Bradycardia, JVD present, Systolic murmur, Diastolic murmur Peripheral Pulses: 2+ Radial (R), 2+ Radial (L), 2+ Dorsalis pedis (R), 2+ Dorsalis pedis (L) Abdomen: positive: Non-tender, No organomegaly, Nml bowel sounds, No distention. negative: Tenderness, Guarding, Rebound Back: positive: Nml inspection. negative: CVA tenderness (R), CVA tenderness (L) Skin: positive: Color nml, No rash, Warm, Dry. negative: Cyanosis, Diaphoresis, Pallor Extremities: positive: Non-tender, Nml appearance. negative: Calf tenderness, Marco's sign/cords Neurologic/Psychiatric: positive: Sensation nml, Mood/affect nml. negative: Weakness, Sensory loss, Facial droop, Slurred/abnml speech, Depressed mood/affect - Lab Results Fish Bones: 07/12/19 04:35 07/12/19 04:35 Other Labs: Lab Results x24hrs 07/12/19 07/12/19 Range/Units 04:35 04:35 WBC 6.0 (4.8-10.8) x10^3/uL RBC 3.86 L (4.20-5.40) 10^6/uL Hgb 12.1 (12.0-16.0) g/dL Hct 37.6 (37.0-47.0) % MCV 97.4 (81.0-99.0) fL MCH 31.3 H (27.0-31.0) pg MCHC 32.2 (32.0-36.0) g/dL RDW 13.1 (12.0-15.0) % Plt Count 183 (130-450) 10^3/uL MPV 8.8 (7.9-10.8) fL Neut # (Auto) 3.1 (1.5-6.6) 10^3/uL Lymph # (Auto) 2.3 (1.5-3.5) 10^3/uL [place] # (Auto) 0.4 (0.0-1.0) 10^3/uL Eos # (Auto) 0.2 (0.0-0.7) 10^3/uL Baso # (Auto) 0.0 (0.0-0.1) 10^3/uL Absolute Nucleated RBC 0.00 x10^3/uL Nucleated RBC % 0.0 /100WBC Sodium 136 (135-145) mmol/L Potassium 3.6 (3.5-5.0) mmol/L Chloride 102 (101-111) mmol/L Carbon Dioxide 25 (21-32) mmol/L Anion Gap 9.0 (6-13) BUN 14 (6-20) mg/dL Creatinine 0.6 (0.4-1.0) mg/dL Estimated GFR (MDRD) 96 (>89) Glucose 155 H (70-100) mg/dL Calcium 8.9 (8.5-10.3) mg/dL Sepsis Event Note (H) - Evaluation Current Stage of Sepsis: Ruled out Assessment/Plan - Problem List (1) Pulmonary embolism Impression: 07/11 improved. pt is alert and more oriented today. she seems no respiratory distress. continue finish 48 hours Lovenox then switch to PO eliquis 07/10 pt seems no respiratory distress, ECHO did not reveals right heart strain. pt has positive for DVT. it is unknown why pt present DVT, what is major risk factor pt had DVT. continue Lovenox. after 48 hours on Lovenox then will switch to Eliquis pt continue no fever, chill, WBC is normal now. Covid 19 is still pending (2) Altered mental status 07/11 improved. pt is alert and more oriented today on person and location, she answer questions. continue support and neuro check 07/10, pt's mental status is better and stable as her baseline now. hypoglycemia was considered to be the major cause of AMS. now her glucose is normal. continue ACHS to check glucose level and neur check with pt (3) Type 2 diabetes mellitus with hypoglycemia 07/11 pt's A1C is 6.3. she had 71 unit of different insulin unit in home meds, pt came with severe hypoglycemia. we hold her insulin until today, and glucose is 155 in the morning. start slide scale, plan hold her home insulin and keep her metformin 07/10pt present hypoglycemia, pt took both insulin and metformin at home. pt has 6.3 A1C. since pt has significant hypoglycemia and advanced dementia, will hold pt's insulin and continue Metformin and followup PCP to monitor pt's glucose level to prevention of hypoglycemia in the d/c charge. in hospital now we hold insulin and continue monitor ACHS glucose level (4) Hyponatremia Conclusion/Plan: 07/11 resolved improved. Na is 133 now. This is likely hypovolemic hyponatremia she appears dry on exam. We will gently hydrate her with normal saline at 75 cc an hour. We will monitor her sodium. (5) Dementia Conclusion/Plan: 07/10 stable, continue support and monitor (6) Hypertension Conclusion/Plan: stable (7) Hyperlipidemia Conclusion/Plan: stable Qualifiers: Pulmonary embolism type: multiple subsegmental (without acute cor pulmonale) Qualified Code(s): I26.94 - Multiple subsegmental pulmonary emboli without acute cor pulmonale
[2019-07-12] MEDS: INSULIN ASPART 300 UNIT/3 ML PEN SUBQ SCH ×3 (12:26→21:10)
[2019-07-13 05:24] LABS: BASOPHILS % (AUTO) 0.3 %; EOSINOPHILS # (AUTO) 0.2 10^3/uL (0.0-0.7); EOSINOPHILS % (AUTO) 2.2 %; HGB - HEMOGLOBIN 13.2 g/dL (12.0-16.0); LYMPHOCYTES # (AUTO) 2.8 10^3/uL (1.5-3.5); LYMPHOCYTES % (AUTO) 38.4 %; MEAN CORPUSCULAR HEMOGLOBIN 31.8 pg (27.0-31.0); MEAN CORPUSCULAR HGB CONC 33.3 g/dL (32.0-36.0); MEAN CORPUSCULAR VOLUME 95.4 fL (81.0-99.0); MEAN PLATELET VOLUME 8.5 fL (7.9-10.8); MONOCYTES # (AUTO) 0.5 10^3/uL (0.0-1.0); MONOCYTES % (AUTO) 7.4 %; NEUTROPHILS # (AUTO) 3.7 10^3/uL (1.5-6.6); NEUTROPHILS % (AUTO) 51.1 %; PLT - PLATELET COUNT 206 10^3/uL (130-450); RED BLOOD COUNT 4.15 10^6/uL (4.20-5.40); RED CELL DISTRIBUTION WIDTH 12.7 % (12.0-15.0); WHITE BLOOD COUNT 7.3 x10^3/uL (4.8-10.8)
[2019-07-13 05:36] LABS: CALCIUM 9.4 mg/dL (8.5-10.3); CREATININE 0.6 mg/dL (0.4-1.0)
[2019-07-13] MEDS: SODIUM CHLORIDE FLUSH 0.9% 10 ML SYRINGE IVP SCH ×3 (05:56→16:07)
[2019-07-13] MEDS ORDERED: POTASSIUM CHLORIDE 20 MEQ TABLET PO SCH (07:21)
[2019-07-13] MEDS: INSULIN ASPART 300 UNIT/3 ML PEN SUBQ SCH ×4 (07:51→20:26)
[2019-07-13] MEDS ORDERED: INSULIN GLARGINE 300 UNIT/3 ML PEN SUBQ SCH (08:00)
[2019-07-13] MEDS ORDERED: RIVAROXABAN 15 MG TABLET PO SCH (09:00)
[2019-07-13] MEDS: DOCUSATE SODIUM 250 MG CAPSULE PO SCH (09:10)
[2019-07-13] MEDS: polyethylene glycoL 3350 17 GM PACKET PO SCH (09:10)
[2019-07-13] MEDS: SENNA 8.6 MG TABLET PO SCH (09:10)
--- NOTE | 2019-07-13 14:59 | PROVIDER PROGRESS NOTE ---
Subjective - Prog Note Date Prog Note Date: 07/13/19 - Subjective Pt reports feeling: No change Subjective: pt is alert but slight confused in the morning compared with yesterday. however pt has underline of significant dementia. nurse report pt did not have sleep on last night. Pt was residence of [facility]. social security specialist called [facility] for d/c planning, [facility] now require pt has Covid 19 test result before they can take pt. pt might have Covid 19 result until . Current Medications - Current Medications Current Medications: Active Medications Acetaminophen (Tylenol) 650 mg PO Q4HR PRN PRN Reason: Pain 1 to 4 Docusate Sodium (Colace 250mg Capsule) 250 - 500 mg PO DAILY [facility] Last Admin: 07/13/19 09:10 Dose: 250 mg Insulin Aspart (Novolog) 1 - 9 unit SUBQ 0800,1200,1700,2100 [facility]; Protocol Last Admin: 07/13/19 11:52 Dose: 5 unit Insulin Glargine (Lantus Solostar) 5 unit SUBQ QDBREAKFAST [facility] Last Admin: 07/13/19 09:10 Dose: 5 unit Ondansetron HCl (Zofran Inj) 4 mg IVP Q6HR PRN PRN Reason: Nausea / Vomiting Polyethylene Glycol (Miralax) 17 gm PO DAILY [facility] Last Admin: 07/13/19 09:10 Dose: 17 gm Rivaroxaban (Xarelto) 15 mg PO BIDWM [facility] Senna (Senokot) 8.6 - 17.2 mg PO DAILY [facility] Last Admin: 07/13/19 09:10 Dose: 8.6 mg Sodium Chloride (Normal Saline Flush 0.9%) 10 ml IVP PRN PRN PRN Reason: NEEDED PER PROVIDER ORDERS Sodium Chloride (Normal Saline Flush 0.9%) 10 ml IVP 0100,0900,1700 [facility] Last Admin: 07/13/19 09:22 Dose: Not Given Insulin Glargine,Hum.rec.anlog [Lantus] 25 unit SQ QPM 07/07/13 Metformin HCl [Metformin HCl ER] 1,000 mg PO BIDWM 07/07/13 Aspirin [Aspir 81] 81 mg PO DAILY 02/01/15 Docusate Sodium [Stool Softener] 250 mg PO BID PRN 02/01/15 Insulin Lispro [Humalog Kwikpen] 12 unit SQ QDBREAKFAST 02/01/15 Insulin Lispro [Humalog Kwikpen] 14 unit SQ QDLUNCH 02/01/15 polyethylene glycoL 3350 [Miralax] 17 gm PO Q2D PRN 02/01/15 Insulin Lispro [Humalog Kwikpen U-100] 2 - 6 unit SUBQ TIDWM PRN 07/11/19 Insulin Lispro [Humalog Kwikpen U-100] 20 unit SUBQ QDDINNER 07/11/19 Pravastatin [Pravachol] 40 mg PO QPM 07/11/19 Objective - Vital Signs/Intake & Output Vital Signs: Vital Signs x48h Temp Pulse Resp BP BP Pulse Ox 07/13/19 11:48 36.5 C 95 18 97/65 93 07/13/19 07:41 36.6 C 79 22 143/78 H 95 Intake & Output: Intake & Output 07/10/19 07/11/19 07/12/19 07/13/19 23:59 23:59 23:59 23:59 Intake Total 250 1350.00 2238.75 340 Output Total 500 1150 150 Balance 250 850.00 1088.75 190 - Objective General Appearance: positive: No acute distress, Alert. negative: Lethargic Eyes Bilateral: positive: Normal inspection, PERRL ENT: positive: ENT inspection nml, Pharynx nml, No signs of dehydration. negative: Purulent nasal drainage Neck: positive: Nml inspection, Thyroid nml, No JVD, Trachea midline. negative: Thyromegaly, Lymphadenopathy (R), Lymphadenopathy (L), Stiff neck, Tracheal deviation Respiratory: positive: Chest non-tender, No respiratory distress, Breath sounds nml. negative: Wheezes, Rales, Rhonchi Cardiovascular: positive: Regular rate & rhythm, No murmur, No gallop. negative: Extrasystoles, Tachycardia, Bradycardia, JVD present, Systolic murmur, Diastolic murmur Peripheral Pulses: 2+ Radial (R) (pt has equal bilateral radial pulses (+2)), 2+ Radial (L) (pt has equal bilateral radial pulses (+2)) Abdomen: positive: Non-tender, No organomegaly, Nml bowel sounds, No distention. negative: Tenderness, Guarding, Rebound Back: positive: Nml inspection. negative: CVA tenderness (R), CVA tenderness (L) Skin: positive: Color nml, No rash, Warm, Dry. negative: Cyanosis, Diaphoresis, Pallor Extremities: positive: Non-tender, Full ROM, Nml appearance, Other (pt move her bilateral upper extremeities equally with full ROM). negative: Calf tenderness, Marco's sign/cords Neurologic/Psychiatric: positive: Sensation nml, Mood/affect nml. negative: Weakness, Sensory loss, Facial droop, Slurred/abnml speech, Depressed mood/affect - Lab Results Fish Bones: 07/13/19 05:10 07/13/19 05:10 Other Labs: Lab Results x24hrs 07/13/19 07/13/19 07/13/19 Range/Units 11:22 05:10 05:10 WBC 7.3 (4.8-10.8) x10^3/uL RBC 4.15 L (4.20-5.40) 10^6/uL Hgb 13.2 (12.0-16.0) g/dL Hct 39.6 (37.0-47.0) % MCV 95.4 (81.0-99.0) fL MCH 31.8 H (27.0-31.0) pg MCHC 33.3 (32.0-36.0) g/dL RDW 12.7 (12.0-15.0) % Plt Count 206 (130-450) 10^3/uL MPV 8.5 (7.9-10.8) fL Neut # (Auto) 3.7 (1.5-6.6) 10^3/uL Lymph # (Auto) 2.8 (1.5-3.5) 10^3/uL [place] # (Auto) 0.5 (0.0-1.0) 10^3/uL Eos # (Auto) 0.2 (0.0-0.7) 10^3/uL Baso # (Auto) 0.0 (0.0-0.1) 10^3/uL Absolute Nucleated RBC 0.00 x10^3/uL Nucleated RBC % 0.0 /100WBC Sodium 137 (135-145) mmol/L Potassium 3.4 L (3.5-5.0) mmol/L Chloride 99 L (101-111) mmol/L Carbon Dioxide 25 (21-32) mmol/L Anion Gap 13.0 (6-13) BUN 9 (6-20) mg/dL Creatinine 0.6 (0.4-1.0) mg/dL Estimated GFR (MDRD) 96 (>89) Glucose 152 H (70-100) mg/dL Calcium 9.4 (8.5-10.3) mg/dL Troponin I High Sens 4.9 (2.3-14.8) ng/L ABX Reporting Has patient been on IV antibiotics over the past 48 hours?: No Sepsis Event Note (H) - Evaluation Current Stage of Sepsis: Ruled out Assessment/Plan - Problem List (1) Pulmonary embolism Impression: 07/12 stable without SOB or respiratory distress. Pt's lovenox is switched to PO Xarelto 15 mg bid for 21 days 07/11 improved. pt is alert and more oriented today. she seems no respiratory distress. continue finish 48 hours Lovenox then switch to PO eliquis 07/10 pt seems no respiratory distress, ECHO did not reveals right heart strain. pt has positive for DVT. it is unknown why pt present DVT, what is major risk factor pt had DVT. continue Lovenox. after 48 hours on Lovenox then will switch to Eliquis pt continue no fever, chill, WBC is normal now. Covid 19 is still pending (2) Altered mental status 07/12 nurse pt has no sleep on last night, pt has slight confused today. add PRN Ambien for sleep 07/11 improved. pt is alert and more oriented today on person and location, she answer questions. continue support and neuro check 07/10, pt's mental status is better and stable as her baseline now. hypoglycemia was considered to be the major cause of AMS. now her glucose is normal. continue ACHS to check glucose level and neur check with pt (3) Type 2 diabetes mellitus with hypoglycemia 07/12 add lantus 5 unit in the morning, continue SSI, ACHS, and hypoglycemia protocol 07/11 pt's A1C is 6.3. she had 71 unit of different insulin unit in home meds, pt came with severe hypoglycemia. we hold her insulin until today, and glucose is 155 in the morning. start slide scale, plan hold her home insulin and keep her metformin 07/10pt present hypoglycemia, pt took both insulin and metformin at home. pt has 6.3 A1C. since pt has significant hypoglycemia and advanced dementia, will hold pt's insulin and continue Metformin and followup PCP to monitor pt's glucose level to prevention of hypoglycemia in the d/c charge. in hospital now we hold insulin and continue monitor ACHS glucose level (4) Hyponatremia Conclusion/Plan: 07/11 resolved improved. Na is 133 now. This is likely hypovolemic hyponatremia she appears dry on exam. We will gently hydrate her with normal saline at 75 cc an hour. We will monitor her sodium. (5) Dementia Conclusion/Plan: 07/10 stable, continue support and monitor (6) Hypertension Conclusion/Plan: stable (7) Hyperlipidemia Conclusion/Plan: stable Qualifiers: Pulmonary embolism type: multiple subsegmental (without acute cor pulmonale) Qualified Code(s): I26.94 - Multiple subsegmental pulmonary emboli without acute cor pulmonale
[2019-07-13] MEDS ORDERED: ZOLPIDEM 5 MG TABLET PO PRN (15:13)
[2019-07-13] MEDS: RIVAROXABAN 15 MG TABLET PO SCH (17:08)
[2019-07-14 05:36] LABS: BASOPHILS % (AUTO) 0.5 %; EOSINOPHILS # (AUTO) 0.3 10^3/uL (0.0-0.7); EOSINOPHILS % (AUTO) 3.7 %; HGB - HEMOGLOBIN 12.8 g/dL (12.0-16.0); LYMPHOCYTES # (AUTO) 3.5 10^3/uL (1.5-3.5); LYMPHOCYTES % (AUTO) 43.5 %; MEAN CORPUSCULAR HEMOGLOBIN 30.3 pg (27.0-31.0); MEAN CORPUSCULAR HGB CONC 32.1 g/dL (32.0-36.0); MEAN CORPUSCULAR VOLUME 94.5 fL (81.0-99.0); MEAN PLATELET VOLUME 8.3 fL (7.9-10.8); MONOCYTES # (AUTO) 0.7 10^3/uL (0.0-1.0); MONOCYTES % (AUTO) 8.9 %; NEUTROPHILS # (AUTO) 3.5 10^3/uL (1.5-6.6); NEUTROPHILS % (AUTO) 42.9 %; PLT - PLATELET COUNT 205 10^3/uL (130-450); RED BLOOD COUNT 4.22 10^6/uL (4.20-5.40); WHITE BLOOD COUNT 8.1 x10^3/uL (4.8-10.8)
[2019-07-14] MEDS: SODIUM CHLORIDE FLUSH 0.9% 10 ML SYRINGE IVP SCH ×3 (05:36→17:22)
[2019-07-14 05:42] LABS: CALCIUM 9.7 mg/dL (8.5-10.3); CREATININE 0.6 mg/dL (0.4-1.0)
[2019-07-14] MEDS ORDERED: BISACODYL 10 MG SUPP PR ONE (09:00)
[2019-07-14] MEDS: INSULIN ASPART 300 UNIT/3 ML PEN SUBQ SCH ×4 (09:11→22:24)
--- NOTE | 2019-07-14 09:13 | PROVIDER PROGRESS NOTE ---
Assessment/Plan - Problem List (1) Pulmonary embolism Qualifiers: Pulmonary embolism type: multiple subsegmental (without acute cor pulmonale) Qualified Code(s): I26.94 - Multiple subsegmental pulmonary emboli without acute cor pulmonale Assessment/Plan: 07/13 pt is stable, comfortably eating her breakfast, mental status as her baseline. Ninoska castellon is waiting for pt's Covid 19 result for d/c continue PO Xarelto bid 07/12 stable without SOB or respiratory distress. Pt's lovenox is switched to PO Xarelto 15 mg bid for 21 days 07/11 improved. pt is alert and more oriented today. she seems no respiratory distress. continue finish 48 hours Lovenox then switch to PO eliquis 07/10 pt seems no respiratory distress, ECHO did not reveals right heart strain. pt has positive for DVT. it is unknown why pt present DVT, what is major risk factor pt had DVT. continue Lovenox. after 48 hours on Lovenox then will switch to Eliquis pt continue no fever, chill, WBC is normal now. Covid 19 is still pending (2) Altered mental status 07/13 stable 07/12 nurse pt has no sleep on last night, pt has slight confused today. add PRN Ambien for sleep 07/11 improved. pt is alert and more oriented today on person and location, she answer questions. continue support and neuro check 07/10, pt's mental status is better and stable as her baseline now. hypoglycemia was considered to be the major cause of AMS. now her glucose is normal. continue ACHS to check glucose level and neur check with pt (3) Type 2 diabetes mellitus with hypoglycemia 07/12 increase Lantus to 8 unit in the morning, continue SSI, ACHS to check glucose level, hypoglycemia protocol 07/12 add lantus 5 unit in the morning, continue SSI, ACHS, and hypoglycemia protocol 07/11 pt's A1C is 6.3. she had 71 unit of different insulin unit in home meds, pt came with severe hypoglycemia. we hold her insulin until today, and glucose is 155 in the morning. start slide scale, plan hold her home insulin and keep her metformin 07/10pt present hypoglycemia, pt took both insulin and metformin at home. pt has 6.3 A1C. since pt has significant hypoglycemia and advanced dementia, will hold pt's insulin and continue Metformin and followup PCP to monitor pt's glucose level to prevention of hypoglycemia in the d/c charge. in hospital now we hold insulin and continue monitor ACHS glucose level (4) Hyponatremia Conclusion/Plan: 07/11 resolved improved. Na is 133 now. This is likely hypovolemic hyponatremia she appears dry on exam. We will gently hydrate her with normal saline at 75 cc an hour. We will monitor her sodium. (5) Dementia Conclusion/Plan: 07/10 stable, continue support and monitor (6) Hypertension Conclusion/Plan: stable (7) Hyperlipidemia Conclusion/Plan: stable - Current Meds Current Meds: Current Medications Generic Name Dose Route Start Last Admin Trade Name Freq PRN Reason Stop Dose Admin Docusate Sodium 250 - 500 mg 07/12/19 09:00 07/13/19 09:10 Colace 250mg Capsule PO 250 mg DAILY [facility] Administration Insulin Aspart 1 - 9 unit 07/12/19 12:00 07/13/19 20:26 Novolog SUBQ 1 unit 0800,1200,1700,2100 [facility] Administration Protocol Insulin Glargine 5 unit 07/13/19 08:00 07/13/19 09:10 Lantus Solostar SUBQ 5 unit QDBREAKFAST [facility] Administration Polyethylene Glycol 17 gm 07/13/19 09:00 07/13/19 09:10 Miralax PO 17 gm DAILY [facility] Administration Rivaroxaban 15 mg 07/13/19 17:00 07/13/19 17:08 Xarelto PO 15 mg BIDWM [facility] Administration Senna 8.6 - 17.2 mg 07/12/19 09:00 07/13/19 09:10 Senokot PO 8.6 mg DAILY [facility] Administration Sodium Chloride 10 ml 07/11/19 01:00 07/14/19 05:36 Normal Saline Flush 0.9% IVP Not Given 0100,0900,1700 [facility] - Lab Result Fish Bone Diagrams: 07/14/19 05:25 07/14/19 05:25 - Additional Planning My Orders: My Active Orders 07/13/19 09:00 polyethylene glycoL 3350 [Miralax] 17 gm PO DAILY 07/13/19 12:01 Miscellaenous Nursing Order [RC] QSHIFT 07/13/19 15:13 Zolpidem [Ambien] 5 mg PO QPM PRN 07/13/19 17:00 Rivaroxaban [Xarelto] 15 mg PO BIDWM 07/15/19 05:00 BMP - BASIC METABOLIC PANEL [CHEM] DAILYLAB CBC - COMP BLD CT W/AUTO DIFF [HEME] DAILYLAB Subjective - Subjective Patient Reports: Feeling Better Objective Vital Signs: Vital Signs - 24 hr 07/13/19 07/13/19 07/13/19 11:48 14:58 16:03 Temperature 36.5 C 36.6 C 36.4 C L Heart Rate [ 95 79 74 Brachial] Respiratory 18 20 16 Rate Blood Pressure 97/65 96/55 L [Left Brachial artery] Blood Pressure 131/71 H 113/64 [Right Brachial artery] O2 Saturation 93 92 98 07/13/19 07/14/19 07/14/19 20:24 00:42 05:00 Temperature 36.4 C L 37.2 C 37.1 C Heart Rate [ 73 72 69 Brachial] Respiratory 24 16 20 Rate Blood Pressure 132/63 H [Left Brachial artery] Blood Pressure 113/69 117/69 [Right Brachial artery] O2 Saturation 96 95 92 07/14/19 07:37 Temperature 37.1 C Heart Rate [ 69 Brachial] Respiratory 18 Rate Blood Pressure 140/61 H [Left Brachial artery] Blood Pressure [Right Brachial artery] O2 Saturation 90 L Oxygen O2 Source Room air I&O (Last 24 Hrs): Intake and Output Totals x24h 07/12/19 07/13/19 07/14/19 23:59 23:59 23:59 Intake Total 2238.75 670 Output Total 1150 250 300 Balance 1088.75 420 -300 General: Alert, No acute distress HEENT: Atraumatic Neck: Supple Lymphatic: no adenopathy Neuro: Alert, Non Focal Cardiovascular: Regular rate, Normal S1, Normal S2 Respiratory: Chest non-tender, No respiratory distress, Breath sounds nml Abdomen: Normal bowel sounds, Soft Extremities: Normal pulses - Results Results: Laboratory Results WBC 8.1 x10^3/uL (4.8-10.8) 07/14/19 05:25 RBC 4.22 10^6/uL (4.20-5.40) 07/14/19 05:25 Hgb 12.8 g/dL (12.0-16.0) 07/14/19 05:25 Hct 39.9 % (37.0-47.0) 07/14/19 05:25 MCV 94.5 fL (81.0-99.0) 07/14/19 05:25 MCH 30.3 pg (27.0-31.0) 07/14/19 05:25 MCHC 32.1 g/dL (32.0-36.0) 07/14/19 05:25 RDW 13.0 % (12.0-15.0) 07/14/19 05:25 Plt Count 205 10^3/uL (130-450) 07/14/19 05:25 MPV 8.3 fL (7.9-10.8) 07/14/19 05:25 Neut # (Auto) 3.5 10^3/uL (1.5-6.6) 07/14/19 05:25 Lymph # (Auto) 3.5 10^3/uL (1.5-3.5) 07/14/19 05:25 [place] # (Auto) 0.7 10^3/uL (0.0-1.0) 07/14/19 05:25 Eos # (Auto) 0.3 10^3/uL (0.0-0.7) 07/14/19 05:25 Baso # (Auto) 0.0 10^3/uL (0.0-0.1) 07/14/19 05:25 Absolute Nucleated RBC 0.00 x10^3/uL 07/14/19 05:25 Nucleated RBC % 0.0 /100WBC 07/14/19 05:25 Sodium 141 mmol/L (135-145) 07/14/19 05:25 Potassium 4.2 mmol/L (3.5-5.0) 07/14/19 05:25 Chloride 105 mmol/L (101-111) 07/14/19 05:25 Carbon Dioxide 25 mmol/L (21-32) 07/14/19 05:25 Anion Gap 11.0 (6-13) 07/14/19 05:25 BUN 18 mg/dL (6-20) 07/14/19 05:25 Creatinine 0.6 mg/dL (0.4-1.0) 07/14/19 05:25 Estimated GFR (MDRD) 96 (>89) 07/14/19 05:25 Glucose 162 mg/dL (70-100) H 07/14/19 05:25 Glycated Hemoglobin 6.3 % (4.6-6.2) H 07/11/19 06:28 Estim Average Glucose 134 (70-100) H 07/11/19 06:28 Lactic Acid 1.1 mmol/L (0.5-2.2) 07/10/19 18:18 Calcium 9.7 mg/dL (8.5-10.3) 07/14/19 05:25 Phosphorus 2.9 mg/dL (2.5-4.6) 07/11/19 06:28 Magnesium 1.7 mg/dL (1.7-2.8) 07/11/19 06:28 Total Bilirubin 0.6 mg/dL (0.2-1.0) 07/10/19 18:18 AST 39 IU/L (10-42) 07/10/19 18:18 ALT 18 IU/L (10-60) 07/10/19 18:18 Alkaline Phosphatase 87 IU/L (42-121) 07/10/19 18:18 Troponin I High Sens 4.9 ng/L (2.3-14.8) 07/13/19 11:22 B-Natriuretic Peptide 33 pg/mL (5-100) 07/10/19 18:18 Total Protein 6.8 g/dL (6.7-8.2) 07/10/19 18:18 Albumin 3.5 g/dL (3.2-5.5) 07/10/19 18:18 Globulin 3.3 g/dL (2.1-4.2) 07/10/19 18:18 Albumin/Globulin Ratio 1.1 (1.0-2.2) 07/10/19 18:18 Lipase 28 U/L (22-51) 07/10/19 18:18 Urine Color YELLOW 07/10/19 18:55 Urine Clarity CLEAR (CLEAR) 07/10/19 18:55 Urine pH 5.5 PH (5.0-7.5) 07/10/19 18:55 Ur Specific [place] >=1.030 (1.002-1.030) H 07/10/19 18:55 Urine Protein 30 mg/dL (NEGATIVE) H 07/10/19 18:55 Urine Glucose (UA) 250 mg/dL (NEGATIVE) H 07/10/19 18:55 Urine Ketones TRACE mg/dL (NEGATIVE) 07/10/19 18:55 Urine Occult Blood TRACE-LYSE (NEGATIVE) 07/10/19 18:55 Urine Nitrite NEGATIVE (NEGATIVE) 07/10/19 18:55 Urine Bilirubin NEGATIVE (NEGATIVE) 07/10/19 18:55 Urine Urobilinogen 0.2 (NORMAL) E.U./dL (NORMAL) 07/10/19 18:55 Ur Leukocyte Esterase NEGATIVE (NEGATIVE) 07/10/19 18:55 Urine RBC 0-5 /HPF (0-5) 07/10/19 18:55 Urine WBC 0-3 /HPF (0-5) 07/10/19 18:55 Ur Squamous Epith Cells NONE SEEN (<= Few) 07/10/19 18:55 Urine Bacteria None Seen /HPF (None Seen) 07/10/19 18:55 Ur Microscopic Review INDICATED 07/10/19 18:55 Urine Culture Comments NOT INDICATED 07/10/19 18:55 Influenza A (Rapid) Negative (Negative) 07/10/19 18:40 Influenza B (Rapid) Negative (Negative) 07/10/19 18:40 - Procedures Procedures: Procedures ENDO RECTUM POLYPECTOMY (07/20/14) ESOPHAGOGASTRODUODENOSCOPY [EGD] W/CLOSED BIOPSY (07/07/13) Sepsis Event Note (H) - Evaluation Current Stage of Sepsis: Ruled out ABX Reporting Has patient been on IV antibiotics over the past 48 hours?: No Current Medications - Current Medications Current Medications: Active Medications Acetaminophen (Tylenol) 650 mg PO Q4HR PRN PRN Reason: Pain 1 to 4 Docusate Sodium (Colace 250mg Capsule) 250 - 500 mg PO DAILY [facility] Last Admin: 07/13/19 09:10 Dose: 250 mg Insulin Aspart (Novolog) 1 - 9 unit SUBQ 0800,1200,1700,2100 [facility]; Protocol Last Admin: 07/13/19 20:26 Dose: 1 unit Insulin Glargine (Lantus Solostar) 8 unit SUBQ QDBREAKFAST [facility] Ondansetron HCl (Zofran Inj) 4 mg IVP Q6HR PRN PRN Reason: Nausea / Vomiting Polyethylene Glycol (Miralax) 17 gm PO DAILY [facility] Last Admin: 07/13/19 09:10 Dose: 17 gm Rivaroxaban (Xarelto) 15 mg PO BIDWM [facility] Last Admin: 07/13/19 17:08 Dose: 15 mg Senna (Senokot) 8.6 - 17.2 mg PO DAILY [facility] Last Admin: 07/13/19 09:10 Dose: 8.6 mg Sodium Chloride (Normal Saline Flush 0.9%) 10 ml IVP PRN PRN PRN Reason: NEEDED PER PROVIDER ORDERS Sodium Chloride (Normal Saline Flush 0.9%) 10 ml IVP 0100,0900,1700 [facility] Last Admin: 07/14/19 05:36 Dose: Not Given Zolpidem Tartrate (Ambien) 5 mg PO QPM PRN PRN Reason: Insomnia Insulin Glargine,Hum.rec.anlog [Lantus] 25 unit SQ QPM 07/07/13 Metformin HCl [Metformin HCl ER] 1,000 mg PO BIDWM 07/07/13 Aspirin [Aspir 81] 81 mg PO DAILY 02/01/15 Docusate Sodium [Stool Softener] 250 mg PO BID PRN 02/01/15 Insulin Lispro [Humalog Kwikpen] 12 unit SQ QDBREAKFAST 02/01/15 Insulin Lispro [Humalog Kwikpen] 14 unit SQ QDLUNCH 02/01/15 polyethylene glycoL 3350 [Miralax] 17 gm PO Q2D PRN 02/01/15 Insulin Lispro [Humalog Kwikpen U-100] 2 - 6 unit SUBQ TIDWM PRN 07/11/19 Insulin Lispro [Humalog Kwikpen U-100] 20 unit SUBQ QDDINNER 07/11/19 Pravastatin [Pravachol] 40 mg PO QPM 07/11/19
[2019-07-14] MEDS: RIVAROXABAN 15 MG TABLET PO SCH ×2 (09:14→17:22)
[2019-07-14] MEDS: DOCUSATE SODIUM 250 MG CAPSULE PO SCH (09:14)
[2019-07-14] MEDS: SENNA 8.6 MG TABLET PO SCH (09:15)
[2019-07-14] MEDS: INSULIN GLARGINE 300 UNIT/3 ML PEN SUBQ SCH (09:23)
[2019-07-14] MEDS: polyethylene glycoL 3350 17 GM PACKET PO SCH (09:36)
[2019-07-15] MEDS: SODIUM CHLORIDE FLUSH 0.9% 10 ML SYRINGE IVP SCH ×4 (00:34→23:31)
[2019-07-15 05:33] LABS: BASOPHILS # (AUTO) 0.1 10^3/uL (0.0-0.1); BASOPHILS % (AUTO) 0.7 %; EOSINOPHILS # (AUTO) 0.3 10^3/uL (0.0-0.7); EOSINOPHILS % (AUTO) 3.4 %; HGB - HEMOGLOBIN 13.1 g/dL (12.0-16.0); LYMPHOCYTES # (AUTO) 3.8 10^3/uL (1.5-3.5); LYMPHOCYTES % (AUTO) 44.7 %; MEAN CORPUSCULAR HEMOGLOBIN 31.1 pg (27.0-31.0); MEAN CORPUSCULAR HGB CONC 32.1 g/dL (32.0-36.0); MEAN CORPUSCULAR VOLUME 96.9 fL (81.0-99.0); MEAN PLATELET VOLUME 8.4 fL (7.9-10.8); MONOCYTES # (AUTO) 0.6 10^3/uL (0.0-1.0); MONOCYTES % (AUTO) 7.1 %; NEUTROPHILS # (AUTO) 3.8 10^3/uL (1.5-6.6); NEUTROPHILS % (AUTO) 43.8 %; PLT - PLATELET COUNT 241 10^3/uL (130-450); RED BLOOD COUNT 4.21 10^6/uL (4.20-5.40); WHITE BLOOD COUNT 8.6 x10^3/uL (4.8-10.8)
[2019-07-15 05:41] LABS: CALCIUM 9.4 mg/dL (8.5-10.3); CREATININE 0.7 mg/dL (0.4-1.0)
[2019-07-15] MEDS: INSULIN ASPART 300 UNIT/3 ML PEN SUBQ SCH ×4 (10:48→21:09)
[2019-07-15] MEDS: INSULIN GLARGINE 300 UNIT/3 ML PEN SUBQ SCH (10:52)
[2019-07-15] MEDS: DOCUSATE SODIUM 250 MG CAPSULE PO SCH (10:52)
[2019-07-15] MEDS: RIVAROXABAN 15 MG TABLET PO SCH ×2 (10:52→17:18)
[2019-07-15] MEDS: polyethylene glycoL 3350 17 GM PACKET PO SCH (10:53)
[2019-07-15] MEDS: SENNA 8.6 MG TABLET PO SCH (10:53)
--- NOTE | 2019-07-15 18:57 | PROVIDER PROGRESS NOTE ---
Assessment/Plan - Problem List (1) Pulmonary embolism Qualifiers: Pulmonary embolism type: multiple subsegmental (without acute cor pulmonale) Qualified Code(s): I26.94 - Multiple subsegmental pulmonary emboli without acute cor pulmonale Assessment/Plan: She has been transitioned successfully to Xarelto. Awaiting discharge; the facility needs the COVID swab test results which are pending. (2) Altered mental status Qualifiers: Altered mental status type: disorientation Qualified Code(s): R41.0 - Disorientation, unspecified Assessment/Plan: She had hypoglycemia at admission which was felt to be the cause of the poor mentation. It appears she has dementia which also makes her not able to participate with PT. Will stop Ambien which can last longer in 84 y/o and add to confusion. (3) Dementia Assessment/Plan: As above in #2 If she needs a med for , will add Zyprexa (4) Type 2 diabetes mellitus with hypoglycemia Qualifiers: Diabetes mellitus care home insulin use: with machine etcher use Diabetes mellitus complication detail: without coma Qualified Code(s): E11.649 - Type 2 diabetes mellitus with hypoglycemia without coma; Z79.4 - med care manager (current) use of insulin Assessment/Plan: Hypoglycemia present at admission. She is now on a carb controlled diet with fingerstick glucose checks and will be discharged on much lower doses of Insulin (5) Hypertension Assessment/Plan: BOP stable on current meds and management - Current Meds Current Meds: Current Medications Generic Name Dose Route Start Last Admin Trade Name Guiq PRN Reason Stop Dose Admin Docusate Sodium 250 - 500 mg 07/12/19 09:00 07/15/19 10:52 Colace 250mg Capsule PO 250 mg DAILY ROGER Administration Insulin Glargine 8 unit 07/14/19 09:30 07/15/19 10:52 Lantus Solostar SUBQ 8 unit QDBREAKFAST ROGER Administration Polyethylene Glycol 17 gm 07/13/19 09:00 07/15/19 10:53 Miralax PO 17 gm DAILY ROGER Administration Rivaroxaban 15 mg 07/13/19 17:00 07/15/19 17:18 Xarelto PO 15 mg BIDWM ROGER Administration Senna 8.6 - 17.2 mg 07/12/19 09:00 03/28/20 10:53 Senokot PO 8.6 mg DAILY ROGER Administration Sodium Chloride 10 ml 07/11/19 01:00 07/15/19 17:18 Normal Saline Flush 0.9% IVP 10 ml 0100,0900,1700 ROGER Administration - Lab Result [place] Diagrams: 07/15/19 05:25 07/15/19 05:25 Subjective - Subjective Patient Reports: Resting Comfortably Nursing Reports: Other (Does not followw commands and cannot participate reliably in PT) Objective Vital Signs: Vital Signs - 24 hr 07/14/19 07/15/19 07/15/19 23:50 07:48 17:06 Temperature 36.5 C 36.7 C 36.6 C Heart Rate [ 71 68 66 Brachial] Respiratory 16 20 18 Rate Blood Pressure 99/63 [Left Brachial artery] Blood Pressure 117/68 108/88 H [Right Brachial artery] O2 Saturation 93 95 93 Oxygen O2 Source Room air I&O (Last 24 Hrs): Intake and Output Totals x24h 07/13/19 07/14/19 07/15/19 23:59 23:59 23:59 Intake Total 670 600 720 Output Total 250 900 225 Balance 420 -300 495 General: Alert, No acute distress HEENT: Mucous membr. moist/pink Neck: Supple Neuro: Disoriented Cardiovascular: Regular rate Respiratory: No respiratory distress Abdomen: Soft - Results Results: Laboratory Results WBC 8.6 x10^3/uL (4.8-10.8) 07/15/19 05:25 RBC 4.21 10^6/uL (4.20-5.40) 07/15/19 05:25 Hgb 13.1 g/dL (12.0-16.0) 07/15/19 05:25 Hct 40.8 % (37.0-47.0) 07/15/19 05:25 MCV 96.9 fL (81.0-99.0) 07/15/19 05:25 MCH 31.1 pg (27.0-31.0) H 07/15/19 05:25 MCHC 32.1 g/dL (32.0-36.0) 07/15/19 05:25 RDW 13.0 % (12.0-15.0) 07/15/19 05:25 Plt Count 241 10^3/uL (130-450) 07/15/19 05:25 MPV 8.4 fL (7.9-10.8) 07/15/19 05:25 Neut # (Auto) 3.8 10^3/uL (1.5-6.6) 07/15/19 05:25 Lymph # (Auto) 3.8 10^3/uL (1.5-3.5) H 07/15/19 05:25 [place] # (Auto) 0.6 10^3/uL (0.0-1.0) 07/15/19 05:25 Eos # (Auto) 0.3 10^3/uL (0.0-0.7) 07/15/19 05:25 Baso # (Auto) 0.1 10^3/uL (0.0-0.1) 07/15/19 05:25 Absolute Nucleated RBC 0.00 x10^3/uL 07/15/19 05:25 Nucleated RBC % 0.0 /100WBC 07/15/19 05:25 Sodium 136 mmol/L (135-145) 07/15/19 05:25 Potassium 3.7 mmol/L (3.5-5.0) 07/15/19 05:25 Chloride 101 mmol/L (101-111) 07/15/19 05:25 Carbon Dioxide 27 mmol/L (21-32) 07/15/19 05:25 Anion Gap 8.0 (6-13) 07/15/19 05:25 BUN 23 mg/dL (6-20) H 07/15/19 05:25 Creatinine 0.7 mg/dL (0.4-1.0) 07/15/19 05:25 Estimated GFR (MDRD) 80 (>89) L 07/15/19 05:25 Glucose 160 mg/dL (70-100) H 07/15/19 05:25 POC Whole Bld Glucose 208 mg/dL (70 - 100) H 07/15/19 17:04 Glycated Hemoglobin 6.3 % (4.6-6.2) H 07/11/19 06:28 Estim Average Glucose 134 (70-100) H 07/11/19 06:28 Lactic Acid 1.1 mmol/L (0.5-2.2) 07/10/19 18:18 Calcium 9.4 mg/dL (8.5-10.3) 07/15/19 05:25 Phosphorus 2.9 mg/dL (2.5-4.6) 07/11/19 06:28 Magnesium 1.7 mg/dL (1.7-2.8) 07/11/19 06:28 Total Bilirubin 0.6 mg/dL (0.2-1.0) 07/10/19 18:18 AST 39 IU/L (10-42) 07/10/19 18:18 ALT 18 IU/L (10-60) 07/10/19 18:18 Alkaline Phosphatase 87 IU/L (42-121) 07/10/19 18:18 Troponin I High Sens 4.9 ng/L (2.3-14.8) 07/13/19 11:22 B-Natriuretic Peptide 33 pg/mL (5-100) 07/10/19 18:18 Total Protein 6.8 g/dL (6.7-8.2) 07/10/19 18:18 Albumin 3.5 g/dL (3.2-5.5) 07/10/19 18:18 Globulin 3.3 g/dL (2.1-4.2) 07/10/19 18:18 Albumin/Globulin Ratio 1.1 (1.0-2.2) 07/10/19 18:18 Lipase 28 U/L (22-51) 07/10/19 18:18 Urine Color YELLOW 07/10/19 18:55 Urine Clarity CLEAR (CLEAR) 07/10/19 18:55 Urine pH 5.5 PH (5.0-7.5) 07/10/19 18:55 Ur Specific [place] >=1.030 (1.002-1.030) H 07/10/19 18:55 Urine Protein 30 mg/dL (NEGATIVE) H 07/10/19 18:55 Urine Glucose (UA) 250 mg/dL (NEGATIVE) H 07/10/19 18:55 Urine Ketones TRACE mg/dL (NEGATIVE) 07/10/19 18:55 Urine Occult Blood TRACE-LYSE (NEGATIVE) 07/10/19 18:55 Urine Nitrite NEGATIVE (NEGATIVE) 07/10/19 18:55 Urine Bilirubin NEGATIVE (NEGATIVE) 07/10/19 18:55 Urine Urobilinogen 0.2 (NORMAL) E.U./dL (NORMAL) 07/10/19 18:55 Ur Leukocyte Esterase NEGATIVE (NEGATIVE) 07/10/19 18:55 Urine RBC 0-5 /HPF (0-5) 07/10/19 18:55 Urine WBC 0-3 /HPF (0-5) 07/10/19 18:55 Ur Squamous Epith Cells NONE SEEN (<= Few) 07/10/19 18:55 Urine Bacteria None Seen /HPF (None Seen) 07/10/19 18:55 Ur Microscopic Review INDICATED 07/10/19 18:55 Urine Culture Comments NOT INDICATED 07/10/19 18:55 Influenza A (Rapid) Negative (Negative) 07/10/19 18:40 Influenza B (Rapid) Negative (Negative) 07/10/19 18:40 - Procedures Procedures: Procedures ENDO RECTUM POLYPECTOMY (07/20/14) ESOPHAGOGASTRODUODENOSCOPY [EGD] W/CLOSED BIOPSY (07/07/13) Sepsis Event Note (H) - Evaluation Current Stage of Sepsis: Ruled out
[2019-07-16 07:32] VITALS: BP 132/72
[2019-07-16] MEDS: DOCUSATE SODIUM 250 MG CAPSULE PO SCH (09:01)
[2019-07-16] MEDS: SENNA 8.6 MG TABLET PO SCH (09:01)
[2019-07-16] MEDS: RIVAROXABAN 15 MG TABLET PO SCH (09:01)
[2019-07-16] MEDS: polyethylene glycoL 3350 17 GM PACKET PO SCH (09:02)
[2019-07-16] MEDS: INSULIN GLARGINE 300 UNIT/3 ML PEN SUBQ SCH (09:03)
[2019-07-16] MEDS: INSULIN ASPART 300 UNIT/3 ML PEN SUBQ SCH ×2 (09:04→12:10)
[2019-07-16] MEDS: SODIUM CHLORIDE FLUSH 0.9% 10 ML SYRINGE IVP SCH (09:05)
--- NOTE | 2019-07-16 11:38 | Discharge Plan ---
Discharge Plan for SNF / [facility] - Discharge Plan And Transition Orders Problem Reviewed?: Yes Disposition: 03 SNF DC/Xfer Condition: Stable Allergies and Adverse Reactions: Allergies Allergy/AdvReac Type Severity Reaction Status Date / Time tetanus toxoid, adsorbed Allergy Unknown Verified 07/10/19 18:08 Health Concerns: Admitted with shortness of breath and found to have blood clots in the lungs, blood thinners have been started. Blood glucose was very low and her diabetic management has been adjusted. Her mental status/confusion remains the same. Because of shortness of breath and possible fever, she was tested for COVID. She is COVID negative. Plan of Treatment: Some medications have been changed. Specific orders regarding daily management are included here. The new prescriptions were electronically sent to her [facility]. After 3 weeks of Xarelto 15 mg twice a day, the order should change to 20 mg daily, and this needs to be prescribed by her PCP. Care Goals: Improvement in symptoms and stabilization are the goals. Assessment: Written orders are being provided to the [facility]. - SNF / [facility] Transition Orders Admit to (Facility): [facility] Discharge Diagnosis: (1) Pulmonary embolism (2) Altered mental status, from Hypoglycemia at admission, resolved (3) Dementia (4) Type 2 diabetes mellitus with hypoglycemia (5) Hypertension Medicare Certification Statement: I certify that [facility] care is medically necessary on a continuing basis for any of the conditions for which she/he is receiving care during hospitalization. Notify PCP of admission and forward orders to primary provider for signature. Weight on admission and: Monthly Other Notification Orders: Call PCP immediately if patient develops dyspnea, chest pain/tightness or edema. House Bowel Program: Yes Additional Bowel Program Orders: If no BM after 2 days, nurse may give M.O.M. 30ml PO PRN and/or ducolax Supp 1 AL and/or BRIJESH 250mg P.O., and/or senna 1-2 tabs PO. On day 3 nurse may give repeat above order until residents constipation is resolved. Annual Influenza Vaccine (between Dec 18 and July 17): Yes Two-step PPD per [facility] [id number] or approved exception documents: Yes Medication Orders: PLEASE REFER TO THE DISCHARGE MEDICATION LIST. Insulin Orders?: Yes - Medications New Prescriptions: Insulin Aspart [NovoLOG] 2 - 10 unit SUBQ 0800,1200,1700,2100 #2 pen Insulin Glargine [Lantus Solostar] 8 unit SUBQ QDBREAKFAST #2 pen Rivaroxaban [Xarelto] 15 mg PO BIDWM #38 tablet - Diet Type: Geriatric Texture: Regular Liquids: Thin May have monthly special meal: Yes - Therapies | Activity Therapy: Evaluation | Treat if indicated: PT (Daily PT to include walking, leg and arm exercises while seated, sit to stand and balance work daily.), OT (Daily OT.) Rehabilitation Potential: Maintain present ADL Functional Activity: Activity as Tolerated Assistance Devices: Walker Additional Instructions: Dementia: The patient may experience what looks like depression, withdrawal, childlike behavior or refusal of care. She may answer "no". Please be patient with these behaviors, and encourage cooperation. Please provide cues and physical assistance to dress/get ready, and at every transition, and to use bathroom with help. Check on patient every 2 hours and every night, and assess if she needs help to get up or use bathroom with each check. Administer meds 3x a day or as prescribed. Independently contracted in-home care is allowed. Please keep a record of the PT/OT progress. Please keep a record of how much water she has consumed every day. Communicate these to the family. Follow Up: Follow-up with PCP, Dr Jorge A Devine, in 1-2 weeks. Insulin Orders - SNF Basal | Correction | Custom Orders: Diagnosis: Diabetes Initiate hypo and hyperglycemia protocols for BG <70 and BG >375. May check BG PRN for signs/symptoms of dysglycemia. Frequency of BG checks: [AC/Meal/HS] Basal Insulin: [X] Lantus 100 units / ml inject subq as follows: [8U sq every morning] Correction Insulin: - Select the type of insulin below [ Novolog]100 units /ml insulin inject subq per orders indicate below [] LOW DOSE [] MODERATE DOSE [X] MODERATE/HIGH DOSE [] HIGH DOSE GB UNITS GB UNITS GB UNITS GB UNITS 61-140 0 UNITS 61-140 0 UNITS 61-140 0 UNITS 61-140 0 UNITS 141-175 1 UNITS 141-175 1 UNITS 141-175 2 UNITS 141-175 3 UNITS 176-225 2 UNITS 176-225 3 UNITS 176-225 4 UNITS 176-225 5 UNITS 226-275 3 UNITS 226-275 5 UNITS 226-275 6 UNITS 226-275 7 UNITS 276-325 4 UNITS 276-325 7 UNITS 276-325 8 UNITS 276-325 9 UNITS 326-375 5 UNITS 326-375 9 UNITS 326-375 10 UNITS 326-375 11 UNITS >375 CONTACT MD >375 CONTACT MD >375 CONTACT MD >375 CONTACT MD
--- NOTE | 2019-07-16 12:05 | DISCHARGE SUMMARY ---
Discharge Summary Admit Date: 07/10/19 Discharge Date: 07/16/19 Discharging Provider: Dr Kadie Thapa Primary Care Provider: Dr Jorge A Devine Code Status: Do Not Attempt Resuscitation Condition at Discharge: Stable Discharge Disposition: SNF DC/Xfer Discharge Facility Name: [facility] History of Present Illness: From the admission H&P of Dr Dave Giordano: This is a 84-year-old female with a past medical history significant for type 2 diabetes mellitus on insulin, hypertension, dementia who presents today from [facility] due to worsening shortness of breath. Most of the history is obtained from the ER provider and nurse as the patient is a poor historian given her confusion and history of dementia. She was reportedly quite dyspneic at her assisted living facility and the staff was concerned about diminished breath sounds in the left lung field and low-grade fevers. When EMS arrived, they noted her blood glucose was in the 50s and she was more confused than usual. The patient reportedly at baseline is able to communicate well and feed herself. Initially in the emergency department, the ER provider told me that all she would say was just her name. Repeat blood glucose was elevated at greater than 200. EMS placed her on 4 L of oxygen upon their arrival and she was saturating 100%. While here in the emergency department, she saturating anywhere from 90% to 95% on room air. She is quite tachypneic with a respiratory rate in the low 30s to mid 30s. The patient herself states she does not feel short of breath and denies any chest pain. She is aware that I am a physician but she is not sure where she is at. She believes it was the year 1966. She cannot tell me what month it is. She reports no lower extremity edema or pain. She denies having a cough. Records from [facility] state that she was started on Macrobid 3 days ago for urinary tract infection. The patient denies having any difficulty urinating In the emergency department, her labs were relatively unremarkable except for sodium of 129 and a potassium of 3.4. BNP was normal as well as lactic acid. A chest x-ray is unremarkable except for an elevated left diaphragm. A CTA of the chest was obtained which showed pulmonary embolisms. She received Lovenox 60 mg in the emergency department. She was also checked for the novel coronavirus. Medicine was consulted for admission. The patient does have a POLST form which states she is a DNR with limited interventions. I did attempt to discuss goals of care with her although she is still slightly altered. She states she would like to focus on her comfort and would not want to be a full code. - HOSPITAL COURSE Hospital Course: 1) Altered sensorium due to hypoglycemia Suspect her altered status was secondary to the hypoglycemic episode plus hypoxia. Her blood sugar was as low as in the 50s. She got D5. Her mental status improved slightly but she still remained disoriented. She could talk more than upon her initial arrival to the emergency department. She had no focal deficits on exam and therefore a CT of the head was not done, was felt to not be of benefit. Her LFTs are also normal should not suspect that she would have an elevated ammonia. We avoided medications that may promote delirium. 2) Pulmonary embolism due to DVT This is likely the etiology of her dyspnea. She is tachypneic with resp rates in the low to mid 30s and hypoxic at times saturating down to 90% on room air. There is no evidence of right heart strain on CTA. The admitting provider chose to anticoagulate her with Lovenox 60 mg twice daily for 48 hours before changing to a NOAC. An Echocardiogram was done that showed normal LV and RV sizes and normal function. Dopplers of the lower extremities showed bilateral DVTs were present. Her troponin and EKG and telemetry were unremarkable. Supplemental oxygen was not necessary by the time of discharge. Given her reported fever at [facility], she was tested for coronavirus with empiric isolation. She was afebrile since arrival to our emergency department. A several day delay in discharge was due to [facility] wanting her COVID result before they would take her back. Her COVID result was negative. (3) UTI (urinary tract infection) She was diagnosed with a urinary tract infection approximately 3 days ago and started on Macrobid. Urinalysis at admission showed no suggestion of infection. Given her age, we discontinued the Macrobid and held off on resuming antibiotics. (4) Type 2 diabetes mellitus with hypoglycemia She has type 2 diabetes mellitus for which she takes Lantus, Lispro, and max dose metformin. She presented hypoglycemic, causing her altered mental status. Her A1c test was 6.3, excessively low at this advanced age. She was on a Carb controlled diet. The metformin was stopped and the Insulin doses were simplified at discharge. (5) Hyponatremia This was hypovolemic hyponatremia since she appeared dry on exam. Gentle hydration with normal saline at 75 cc an hour was done and her sodium improved from 123>> 133>> 136-140. (6) Dementia She does have a history of dementia at baseline but was able to ambulate and feed herself on her own. Reportedly at baseline, she is quite talkative and able to participate in conversations. She remained unable to follow commands to participate with PT, for example. She was discharged back to [facility] with detailed orders for the staff there, as requested by the daughter. (7) Hypertension She has a reported history of hypertension but is on any antihypertensives at home. She is currently normotensive. - ALLERGIES Allergies/Adverse Reactions: Allergies Allergy/AdvReac Type Severity Reaction Status Date / Time tetanus toxoid, adsorbed Allergy Unknown Verified 07/10/19 18:08 - MEDICATIONS Home Medications: Ambulatory Orders Medication Instructions Recorded Confirmed Aspirin [Aspir 81] 81 mg PO DAILY 02/01/15 07/11/19 Docusate Sodium [Stool Softener] 250 mg PO BID PRN 02/01/15 07/11/19 polyethylene glycoL 3350 [Miralax] 17 gm PO Q2D PRN 02/01/15 07/11/19 Pravastatin [Pravachol] 40 mg PO QPM 07/11/19 07/11/19 Insulin Aspart [NovoLOG] 2 - 10 unit SUBQ 07/16/19 0800,1200,1700,2100 #2 pen Insulin Glargine [Lantus Solostar] 8 unit SUBQ QDBREAKFAST #2 pen 07/16/19 Rivaroxaban [Xarelto] 15 mg PO BIDWM #38 tablet 07/16/19 - PHYSICAL EXAM AT DISCHARGE General Appearance: positive: No acute distress Eyes Bilateral: positive: Normal inspection, EOMI ENT: positive: No signs of dehydration Respiratory: positive: No respiratory distress Abdomen: positive: No distention Extremities: positive: No pedal edema Neurologic/Psychiatric: positive: Other (Not communicative, smiles but does not follow commands) - LABS Result Diagrams: 07/15/19 05:25 07/15/19 05:25 - DIAGNOSTIC IMAGING Diagnostic Imaging Results: Final report reviewed - FOLLOW UP Follow Up: See PCP in 1-2 weeks. - TIME SPENT Time Spent in Discharge (Minutes): 60
== END 2019-07-16 14:05 | disposition home or self-care (01) | DRG 176 ==
LOC: EDUNIT# → ED 18:00 → MS2 21:59
PROVIDERS: ADMIT Internal Medicine; ATTEND Internal Medicine
DX: I26.99 Other pulmonary embolism without acute cor pulmonale (principal); R50.81 Fever presenting with conditions classified elsewhere; R09.02 Hypoxemia; R41.0 Disorientation, unspecified; E87.1 Hypo-osmolality and hyponatremia; N39.0 Urinary tract infection, site not specified; E11.9 Type 2 diabetes mellitus without complications; I82.433 Acute embolism and thrombosis of popliteal vein, bilateral; I82.453 Acute embolism and thrombosis of peroneal vein, bilateral; I82.412 Acute embolism and thrombosis of left femoral vein; I82.443 Acute embolism and thrombosis of tibial vein, bilateral; I26.94 Multiple subsegmental thrombotic pulmonary emboli without acute cor pulmonale; E11.649 Type 2 diabetes mellitus with hypoglycemia without coma; E78.5 Hyperlipidemia, unspecified; F03.90 Unspecified dementia, unspecified severity, without behavioral disturbance, psychotic disturbance, mood disturbance, and anxiety; E78.00 Pure hypercholesterolemia, unspecified; R06.83 Snoring; Z66 Do not resuscitate; Z79.4 Long term (current) use of insulin; Z79.82 Long term (current) use of aspirin; Z97.0 Presence of artificial eye; Z75.1 Person awaiting admission to adequate facility elsewhere
CPT/HCPCS: 36415; 71045; 71275; 80048; 80053; 81001; 83036; 83605; 83690; 83735; 83880; 84100; 84484; 85025; 87040; 87275; 87276; 93005; 93306; 93970; 97163; 97166; 97530; 99285; A9270; J1650; J1815; J3490; Q9967; U0002; 81003; 81599; 87086

== ENCOUNTER 2020-01-02 09:31 | Outpatient (CLI) | payer MEDICARE, OTHER | END 2020-01-02 09:32 | disposition critical access hospital (66) | LOC: EMS 09:31 | PROVIDERS: ATTEND Surgery | DX: R10.32 Left lower quadrant pain (principal); W01.0XXA Fall on same level from slipping, tripping and stumbling without subsequent striking against object, initial encounter; Y93.9 Activity, unspecified; Y92.098 Other place in other non-institutional residence as the place of occurrence of the external cause | CPT/HCPCS: A0425; A0429 ==

== ENCOUNTER 2020-01-02 09:49 | Inpatient (IN) | payer MEDICARE, OTHER ==
--- NOTE | 2020-01-02 10:12 | ED Physician Documentation ---
PD HPI Fall - Stated complaint Stated Complaint: GLF - Chief complaint Chief Complaint: Trauma Ext - History obtained from History obtained from: Patient - History of Present Illness Mechanism of injury: Unknown Fall distance: Standing position Where injury occurred: Home Timing - onset: Enter time (0900), Today Injury(ies) location: Left Lower Extremity Quality of pain: Pain Associated symptoms: No: LOC, AMS Symptoms improve with: Rest Worsens with: Movement, Palpation Contributing factors: Anticoagulated Similar symptoms before: Has not had sx before Recently seen: Not recently seen - Additional information Additional information: 84-year-old female with a history of type 2 diabetes who is on Xarelto for DVT has had a fall both last night and this morning last night she bumped into a washing machine and this morning she fell outside of the elevator on the way back from breakfast. The fall was unwitnessed she denies hitting her head she denies any pain to her head she denies any loss of consciousness. She has pain in her left groin area. Review of Systems Unable to obtain: Other (poor historian with hard of hearing and dementia) Constitutional: denies: Fever Nose: denies: Congestion Throat: denies: Sore throat Cardiac: denies: Chest pain / pressure, Palpitations Respiratory: denies: Dyspnea, Cough GI: denies: Abdominal Pain, Nausea, Vomiting, Constipation, Diarrhea : denies: Dysuria, Frequency Skin: denies: Rash Musculoskeletal: reports: Back pain, Extremity pain. 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 Neuro: Craniotomy HEENT: Cataracts - Present Medications Home Medications: Ambulatory Orders Medication Instructions Recorded Confirmed Aspirin [Aspir 81] 81 mg PO DAILY 02/01/15 07/11/19 Docusate Sodium [Stool Softener] 250 mg PO BID PRN 02/01/15 07/11/19 polyethylene glycoL 3350 [Miralax] 17 gm PO Q2D PRN 02/01/15 07/11/19 Pravastatin [Pravachol] 40 mg PO QPM 07/11/19 07/11/19 Insulin Aspart [NovoLOG] 2 - 10 unit SUBQ 07/16/19 0800,1200,1700,2100 #2 pen Insulin Glargine [Lantus Solostar] 8 unit SUBQ QDBREAKFAST #2 pen 07/16/19 Rivaroxaban [Xarelto] 15 mg PO BIDWM #38 tablet 07/16/19 - Allergies Allergies/Adverse Reactions: Allergies Allergy/AdvReac Type Severity Reaction Status Date / Time tetanus toxoid, adsorbed Allergy Unknown Verified 07/10/19 18:08 - Social History Does the pt smoke?: No Smoking Status: Never smoker Does the pt drink ETOH?: No Does the pt have substance abuse?: No - Immunizations Immunizations are current?: Yes PD ED PE NORMAL - Vitals Vital signs reviewed: Yes (hypertensive) - General General: No acute distress, Well developed/nourished, Other (laying on the gurn ey with eyes closed responds to verbal and is hard of hearing. ) - HEENT HEENT: Atraumatic, PERRL, EOMI, Other (palpated entire skull without tenderness except when I pulled on her hair. ) - Neck Neck: Supple, no meningeal sign, No bony TTP - Cardiac Cardiac: RRR, No murmur - Respiratory Respiratory: No respiratory distress, Clear bilaterally - Abdomen Abdomen: Normal bowel sounds, Soft, Non tender, Non distended, No organomegaly - Back Back: No CVA TTP, No spinal TTP - Derm Derm: Normal color, Warm and dry, No rash - Extremities Extremities: No deformity, No edema, Other (tenderness to the left groin. No shortening or rotation of the left hip and no tenderness to the trochanter or pain with ROM of the hip joint. 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, No motor deficit, No sensory deficit, Normal speech Eye Opening: To Voice Motor: Obeys Commands Verbal: Confused GCS Score: 13 - Psych Psych: Normal mood, Normal affect Results - Vitals Vitals: Vital Signs - 24 hr 01/02/20 01/02/20 01/02/20 09:53 10:04 11:14 Temperature 36.9 C 36.9 C 37.8 C H Heart Rate 92 95 90 Respiratory 18 18 20 Rate Blood Pressure 138/101 H 149/91 H 139/88 H O2 Saturation 96 98 97 09/15/20 09/15/20 09/15/20 12:05 12:57 13:53 Temperature 36.7 C 36.9 C Heart Rate 92 88 89 Respiratory 20 20 20 Rate Blood Pressure 128/79 137/77 H 130/78 O2 Saturation 96 97 95 01/02/20 14:49 Temperature 37.3 C Heart Rate 87 Respiratory 20 Rate Blood Pressure 102/59 L O2 Saturation 97 Oxygen O2 Source Room air - Labs Labs: Laboratory Tests 01/02/20 01/02/20 01/02/20 10:20 10:25 12:55 WBC 9.4 RBC 4.78 Hgb 14.7 Hct 46.6 MCV 97.5 MCH 30.8 MCHC 31.5 L RDW 13.0 Plt Count 260 MPV 8.4 Neut # (Auto) 6.4 Lymph # (Auto) 2.4 [place] # (Auto) 0.5 Eos # (Auto) 0.0 Baso # (Auto) 0.0 Absolute Nucleated RBC 0.00 Nucleated RBC % 0.0 Sodium 134 L Potassium 4.1 Chloride 97 L Carbon Dioxide 25 Anion Gap 12.0 BUN 15 Creatinine 1.0 Estimated GFR (MDRD) 53 L Glucose 182 H Calcium 9.9 Total Bilirubin 0.5 AST 24 ALT 20 Alkaline Phosphatase 109 Total Protein 7.9 Albumin 4.2 Globulin 3.7 Albumin/Globulin Ratio 1.1 Lipase 28 Urine Color YELLOW Urine Clarity CLOUDY Urine pH 6.0 Ur Specific [place] 1.025 Urine Protein NEGATIVE Urine Glucose (UA) NEGATIVE Urine Ketones NEGATIVE Urine Occult Blood SMALL H Urine Nitrite POSITIVE H Urine Bilirubin NEGATIVE Urine Urobilinogen 0.2 (NORMAL) Ur Leukocyte Esterase MODERATE H Urine RBC 0-5 Urine WBC >25 H Ur Squamous Epith Cells RARE Squamous Urine Bacteria Many H Ur Microscopic Review INDICATED Urine Culture Comments INDICATED - Rads (name of study) hip L Radiology: Prelim report reviewed (Impression: Osteopenia. Suggestion of a subtle minimally displaced left inferior pubic ramus fracture. No left hip fracture or dislocation. Left hip joint osteoarthritis. No evidence of avascular necrosis.), EMP read indepedently, See rad report CT head Radiology: Prelim report reviewed (Impression: No acute intracranial finding. Findings raising concern for normal pressure hydrocephalus are again noted. Correlate with clinical presentation.), EMP read indepedently, See rad report Procedures - IVC sono (time) 1004 Bedside IVC sono: IVC measures (cm) (0.92), IVC collapsed c insp (cm) (complete), Dehydration (est 1-2 liter deficit) PD MEDICAL DECISION MAKING - ED course Complexity details: reviewed old records, reviewed results, re-evaluated patient, considered differential, d/w patient ED course: 84-year-old female on Xarelto has had a fall at her residence at [place] where she is in assisted living. The fall was unwitnessed she has a inferior pubic ramus fracture and she is profoundly weak. She has had 2 falls in the past 2 days. On emergency department evaluation her she is found to be dehydrated and IV saline is begun her cognition improves but she is too weak to even stand without assistance and too weak to take a step once she is assisted up. Her urine is infected and makes the grade for culture. She is administered IV rocephin. Departure - Departure Disposition: ED Place in Observation Clinical Impression: Dehydration, Weakness UTI (urinary tract infection) Qualifiers: Urinary tract infection type: acute cystitis Hematuria presence: without hematuria Qualified Code(s): N30.00 - Acute cystitis without hematuria Fracture of inferior pubic ramus Qualifiers: Encounter type: initial encounter Fracture type: closed Laterality: left Qualified Code(s): S32.592A - Other specified fracture of left pubis, initial encounter for closed fracture
[2020-01-02] MEDS ORDERED: SODIUM CHLORIDE 0.9% 1,000 ML IV STA (10:17)
[2020-01-02 10:33] LABS: BASOPHILS % (AUTO) 0.4 %; EOSINOPHILS % (AUTO) 0.4 %; HGB - HEMOGLOBIN 14.7 g/dL (12.0-16.0); LYMPHOCYTES # (AUTO) 2.4 10^3/uL (1.5-3.5); LYMPHOCYTES % (AUTO) 25.3 %; MEAN CORPUSCULAR HEMOGLOBIN 30.8 pg (27.0-31.0); MEAN CORPUSCULAR HGB CONC 31.5 g/dL (32.0-36.0); MEAN CORPUSCULAR VOLUME 97.5 fL (81.0-99.0); MEAN PLATELET VOLUME 8.4 fL (7.9-10.8); MONOCYTES # (AUTO) 0.5 10^3/uL (0.0-1.0); MONOCYTES % (AUTO) 5.6 %; NEUTROPHILS # (AUTO) 6.4 10^3/uL (1.5-6.6); NEUTROPHILS % (AUTO) 67.7 %; PLT - PLATELET COUNT 260 10^3/uL (130-450); RED BLOOD COUNT 4.78 10^6/uL (4.20-5.40); WHITE BLOOD COUNT 9.4 x10^3/uL (4.8-10.8)
[2020-01-02 10:46] LABS: ALBUMIN 4.2 g/dL (3.2-5.5); ALBUMIN/GLOBULIN RATIO 1.1 (1.0-2.2); BILIRUBIN,TOTAL 0.5 mg/dL (0.2-1.0); CALCIUM 9.9 mg/dL (8.5-10.3); TOTAL PROTEIN 7.9 g/dL (6.7-8.2)
--- NOTE | 2020-01-02 10:55 | XRAY Report ---
PROCEDURE: Hip w/Pelvis 2-3V LT INDICATIONS: fall ramus pain L TECHNIQUE: AP pelvis with lateral view(s) of the left hip. COMPARISON: None. FINDINGS: Bones: Bilateral hip joint osteoarthritic changes are seen. Osteopenia is also noted. No acute left h ip fracture or dislocation. Cortical irregularity involving left inferior pubic ramus is noted sugges tive of a minimally displaced left pubic ramus fracture. No evidence of avascular necrosis of femoral head. No suspicious bony lesions. Soft tissues: The visualized bowel gas pattern is normal. No suspicious soft tissue calcifications. IMPRESSION: Osteopenia. Suggestion of a subtle minimally displaced left inferior pubic ramus fracture . No left hip fracture or dislocation. Left hip joint osteoarthritis. No evidence of avascular necros is. Reviewed by: Anjel Oconnor MD on 01/02/2020 10:53 AM PDT Approved by: Anjel Oconnor MD on 01/02/2020 10:53 AM PDT Station ID: [id number]
--- NOTE | 2020-01-02 11:21 | CT Report ---
PROCEDURE: HEAD WO INDICATIONS: Head injury TECHNIQUE: Noncontrast 4.5 mm thick angled axial sections acquired from the foramen magnum to the vertex. For r adiation dose reduction, the following was used: automated exposure control, adjustment of mA and/or kV according to patient size. COMPARISON: 12/06/2013 MRI brain, 12/01/2012 MRI brain. FINDINGS: Image quality: Excellent. CSF spaces: Basal cisterns are patent. No extra-axial fluid collections. Ventricles are normal in size and shape. Brain: No midline shift. No intracranial masses or hemorrhage. Cabral-white matter interface is norm al. Skull and face: Calvarium and visualized facial bones are intact, without suspicious lesions. Sinuses: Visualized sinuses and mastoids are clear. IMPRESSION: No acute intracranial finding. Findings raising concern for normal pressure hydrocephalu s are again noted. Correlate with clinical presentation. Reviewed by: Luis Adams MD on 01/02/2020 11:20 AM PDT Approved by: Luis Adams MD on 01/02/2020 11:20 AM PDT Station ID: [id number]
[2020-01-02 13:03] LABS: BILIRUBIN,URINE NEGATIVE (NEGATIVE); CLARITY,URINE CLOUDY (CLEAR); GLUCOSE, URINE (UA) NEGATIVE (NEGATIVE); KETONES,URINE (UA) NEGATIVE (NEGATIVE); LEUKOCYTE ESTERASE, URINE MODERATE (NEGATIVE); NITRITE,URINE POSITIVE (NEGATIVE); OCCULT BLOOD,URINE SMALL (NEGATIVE); PROTEIN,URINE NEGATIVE (NEGATIVE); UROBILINOGEN,URINE 0.2 (NORMAL) E.U./dL (NORMAL)
[2020-01-02 13:10] LABS: RBC,URINE 0-5 /HPF (0-5); SQUAMOUS EPITHELIAL CELL,UR RARE Squamous (<= Few)
[2020-01-02 13:11] LABS: BACTERIA,URINE Many /HPF (None Seen)
[2020-01-02] MEDS ORDERED: cefTRIAXone 1 GM in SODIUM CHLORIDE 0.9% MINIBAG 100 ML IV STA (15:11)
[2020-01-02] MEDS ORDERED: cefTRIAXone 1 GM VIAL ONE (15:29)
[2020-01-02] MEDS ORDERED: SODIUM CHLORIDE FLUSH 0.9% 10 ML SYRINGE IVP PRN (15:50)
[2020-01-02] MEDS ORDERED: ONDANSETRON 4 MG/2 ML VIAL IVP PRN (15:50)
[2020-01-02] MEDS ORDERED: SODIUM CHLORIDE 0.9% 1,000 ML IV SCH ×2 (16:00→16:05)
--- NOTE | 2020-01-02 16:05 | HISTORY & PHYSICAL EXAMINATION ---
Chief Complaint - Chief Complaint Chief Complaint: fall History of Present Illness - History of Present Illness HPI Comment/Other: This is a 84-year-old female with a past medical history significant for type 2 diabetes mellitus on insulin, Recently diagnosis with DVT on Xarelto,hypertension, dementia, Hard hearing who presents today from [facility] for evaluation of fall both last night and this morning. Patient has history of dementia and hard healing so she could not provide a history, patient's daughter is at bedside but she is just visiting her mother, so she did not provide history as well. Per ER report pt had fall in last night, she bumped into a washing machine, then in this morning she fell outside of the elevator on the way back from breakfast. These fall were unwitnessed, she denied in ER, hitting her head, she denies any pain to her head, and she denies any loss of consciousness. CT Show no acute finding, Chronic normal pressure hydrocephalus as noted again. X- ray of hip show osteopenia, suggestion of subtle minimally displaced left inferior pubic ramus fracture, No left hip fracture or dislocation, No evidence of avascular necrosis. In routine lab tests show patient has UTI, Vital signs in the ER show patient had a temperature 37.8. Systolic blood pressure at one was 102. Patient was admitted for further evaluation and treatment. Patient had PLOST shown DNR with limited intervention. Patient's daughter confirm this PLOST. 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 Social History Notes: She resides at [facility]. I am unable to obtain any further social history given her dementia and current confusion. Meds/Allgy - Home Medications Home Medications: Ambulatory Orders Medication Instructions Recorded Confirmed Aspirin [Aspir 81] 81 mg PO DAILY 02/01/15 07/11/19 Docusate Sodium [Stool Softener] 250 mg PO BID PRN 02/01/15 07/11/19 polyethylene glycoL 3350 [Miralax] 17 gm PO Q2D PRN 02/01/15 07/11/19 Pravastatin [Pravachol] 40 mg PO QPM 07/11/19 07/11/19 Insulin Aspart [NovoLOG] 2 - 10 unit SUBQ 07/16/19 0800,1200,1700,2100 #2 pen Insulin Glargine [Lantus Solostar] 8 unit SUBQ QDBREAKFAST #2 pen 07/16/19 Rivaroxaban [Xarelto] 15 mg PO BIDWM #38 tablet 07/16/19 - Allergies Allergies/Adverse Reactions: Allergies Allergy/AdvReac Type Severity Reaction Status Date / Time tetanus toxoid, adsorbed Allergy Unknown Verified 07/10/19 18:08 Review of Systems - All Other Systems All Other Systems: reports: Other (Patient has a history of dementia, patient co uld not provide ROS) Exam - Vital Signs Vital Signs: Vital Signs x48h Temp Pulse Resp BP Pulse Ox 01/02/20 14:49 37.3 C 87 20 102/59 L 97 01/02/20 13:53 36.9 C 89 20 130/78 95 01/02/20 12:57 36.7 C 88 20 137/77 H 97 01/02/20 12:05 92 20 128/79 96 01/02/20 11:14 37.8 C H 90 20 139/88 H 97 01/02/20 10:04 36.9 C 95 18 149/91 H 98 01/02/20 09:53 36.9 C 92 18 138/101 H 96 - Physical Exam General Appearance: positive: No acute distress, Alert. negative: Lethargic Eyes Bilateral: positive: Normal inspection, PERRL, No lid inflammation ENT: positive: ENT inspection nml, No signs of dehydration Neck: positive: Nml inspection, Thyroid nml, Trachea midline. negative: Thyromegaly, Stiff neck, Tracheal deviation Respiratory: positive: Chest non-tender, No respiratory distress. negative: Wheezes, Rales, Rhonchi Cardiovascular: positive: Regular rate & rhythm, No murmur. negative: Tachycardia, Bradycardia, Systolic murmur, Diastolic murmur Peripheral Pulses: positive: 2+ Abdomen: positive: Non-tender, Nml bowel sounds, No distention. negative: Tenderness, Guarding, Rebound Back: positive: Nml inspection Skin: positive: Color nml, No rash, Warm, Dry. negative: Cyanosis, Diaphoresis, Pallor Extremities: positive: Non-tender, Nml appearance. negative: Calf tenderness, Marco's sign/cords Neurologic/Psychiatric: positive: Sensation nml. negative: Weakness, Sensory loss, Facial droop, Depressed mood/affect Sepsis Event Note (H) - Sepsis Criteria Sepsis Criteria: Suspected or Documented, Recorded Heart Rate greater than 90 bpm Conclusion/Plan - Problem List (1) Fall from ground level Conclusion/Plan: Patient had 2 unwitnessed fall in the . CAT scan of the head show no acute finding. X-ray will of hip suggestion osteopenia with Minimally displaced left inferior public ramus fracture, without hip fracture, likely chronic from her osteopenia. We will pain control, we will have physical therapist and occupational therapist for patient, Continue fall precaution, Add calcium carbonate and vitamin D3 for patient's osteopenia. (2) UTI (urinary tract infection) Conclusion/Plan: Urinalysis show patient has a UTI,Patient had elevated temperature 37.8, one- time blood pressure 102. We will treated treated patient with antibiotics, intravenous IV fluids, closely monitor patient sepsis. Blood culture is done in pending. Qualifiers: Urinary tract infection type: acute cystitis Hematuria presence: without hematuria Qualified Code(s): N30.00 - Acute cystitis without hematuria (3) Altered mental status Conclusion/Plan: Patient has a history of dimension plus active urinary tract infection, some marital status change present. We will treat underlying infection, give patient intravenous IV fluids, neuro check Qualifiers: Altered mental status type: disorientation Qualified Code(s): R41.0 - Disorientation, unspecified (4) Fracture of inferior pubic ramus Conclusion/Plan: Patient complaint hip pain, x-ray show minimally fracture of inferior pubic ramus, likely caused by osteopenia with her fall. Pain control, with calcium and vitamin D3, PT/OT Qualifiers: Encounter type: initial encounter Fracture type: closed Laterality: left Qualified Code(s): S32.592A - Other specified fracture of left pubis, initial encounter for closed fracture (5) Weakness Conclusion/Plan: Patient present weakness, and minimally fracture in her public ramus. We will have physical therapist and occupational therapist for patient (6) Diabetes Conclusion/Plan: Patient has history diabetic, will resume home Lantus and start with sliding scale, check A1c, start with hypoglycemia protocol (7) Hx of deep venous thrombosis Conclusion/Plan: Patient has a history of DVT, will resume home Xarelto. - Lab Results Fish Bones: 01/02/20 10:20 01/02/20 10:25 Core Measures - Anticipated LOS I expect patient to be DC'd or transferred within 96 hours.: Yes - DVT/VTE - Prophylaxis VTE/DVT Device ordered at admit?: Yes VTE/DVT Prophylaxis med ordered at admit?: Yes
[2020-01-02] MEDS: SODIUM CHLORIDE FLUSH 0.9% 10 ML SYRINGE IVP SCH (16:34)
[2020-01-02] MEDS ORDERED: oxyCODONE 5 MG TABLET PO PRN (18:15)
[2020-01-02] MEDS: INSULIN ASPART 300 UNIT/3 ML PEN SUBQ SCH ×2 (18:23→20:24)
[2020-01-02] MEDS: CALCIUM CARBONATE CHEW 500 MG TABLET PO SCH (20:29)
[2020-01-03] MEDS: SODIUM CHLORIDE FLUSH 0.9% 10 ML SYRINGE IVP SCH ×3 (02:31→16:45)
[2020-01-03] MEDS: SODIUM CHLORIDE 0.9% 1,000 ML IV SCH ×4 (03:36→17:37)
[2020-01-03 05:06] LABS: BASOPHILS # (AUTO) 0.1 10^3/uL (0.0-0.1); BASOPHILS % (AUTO) 0.7 %; EOSINOPHILS # (AUTO) 0.1 10^3/uL (0.0-0.7); EOSINOPHILS % (AUTO) 1.8 %; HGB - HEMOGLOBIN 12.9 g/dL (12.0-16.0); LYMPHOCYTES # (AUTO) 2.9 10^3/uL (1.5-3.5); LYMPHOCYTES % (AUTO) 41.1 %; MEAN CORPUSCULAR HEMOGLOBIN 31.6 pg (27.0-31.0); MEAN CORPUSCULAR HGB CONC 32.6 g/dL (32.0-36.0); MEAN CORPUSCULAR VOLUME 97.1 fL (81.0-99.0); MEAN PLATELET VOLUME 8.7 fL (7.9-10.8); MONOCYTES # (AUTO) 0.5 10^3/uL (0.0-1.0); MONOCYTES % (AUTO) 7.6 %; NEUTROPHILS # (AUTO) 3.4 10^3/uL (1.5-6.6); NEUTROPHILS % (AUTO) 48.2 %; PLT - PLATELET COUNT 228 10^3/uL (130-450); RED BLOOD COUNT 4.08 10^6/uL (4.20-5.40); RED CELL DISTRIBUTION WIDTH 13.1 % (12.0-15.0); WHITE BLOOD COUNT 7.1 x10^3/uL (4.8-10.8)
[2020-01-03 05:14] LABS: CALCIUM 9.1 mg/dL (8.5-10.3); CREATININE 0.6 mg/dL (0.4-1.0)
[2020-01-03] MEDS: PANTOPRAZOLE 40 MG TABLET PO SCH (06:57)
[2020-01-03] MEDS: cefTRIAXone 1 GM in SODIUM CHLORIDE 0.9% MINIBAG 100 ML IV SCH (08:24)
[2020-01-03] MEDS: ACETAMINOPHEN 325 MG TABLET PO PRN (08:29)
[2020-01-03] MEDS: CALCIUM CARBONATE CHEW 500 MG TABLET PO SCH ×2 (08:29→21:50)
[2020-01-03] MEDS: CHOLECALCIFEROL 400 UNIT TABLET PO SCH (08:29)
[2020-01-03] MEDS: INSULIN GLARGINE 300 UNIT/3 ML PEN SUBQ SCH (08:35)
[2020-01-03] MEDS: INSULIN ASPART 300 UNIT/3 ML PEN SUBQ SCH ×4 (08:36→21:26)
[2020-01-03] MEDS ORDERED: cefTRIAXone 1 GM VIAL IVP SCH (09:00)
[2020-01-03] MEDS ORDERED: ENOXAPARIN 40 MG/0.4 ML SYRINGE SUBQ SCH (09:00)
[2020-01-03 11:54] LABS: HEMOGLOBIN A1c% 7.2 % (4.27-6.07)
--- NOTE | 2020-01-03 13:17 | PHARMACY PROGRESS NOTE ---
- Monitoring Indication for anticoagulation: History of DVT Previous home regime: 20MG PO ONCE A DAY - PREVIOUS LOADING DOSE WAS 15MG PO BID Potentially interacting medications: NONE Other anticoagulation: None Risk factors for bleed: Recent injury or surgery, Hypertension, Age >65, Diabetes, Other (BASELINE DEMENTIA) - Recommendations Dosing: Anticoagulation Monitoring 01/03/20 01/02/20 04:45 10:20 Hgb 12.9 14.7 Hct 39.6 46.6 Last Dose Given: S&S of bleeding: Pharmacy recommendation: Continue current regime
--- NOTE | 2020-01-03 13:28 | PHARMACY PROGRESS NOTE ---
- Best Possible Medication History Admit Date and Time: 01/02/20 1150 Processed by: Pharmacy Medication History completed: Yes Secondary Source(s): Facility MAR as ONLY source As the person ultimately responsible for medication therapy, providers are able to order a medication from an existing home medication list in [facility] via the "Reconcile Routine" prior to Confirmation of that medication by applications support lead. Such practice is discouraged except when the physician, in their clinical judgment, deems that a medical need exists for a medication without regard to previous use.
--- NOTE | 2020-01-03 15:55 | PROVIDER PROGRESS NOTE ---
Assessment/Plan - Problem List (1) UTI (urinary tract infection) Qualifiers: Urinary tract infection type: acute cystitis Hematuria presence: without hematuria Qualified Code(s): N30.00 - Acute cystitis without hematuria Assessment/Plan: 01/02 Urine culture show Negative rods, Sensitivity studies is pending. Continue antibiotic Rocephin. order probiotics Urinalysis show patient has a UTI,Patient had elevated temperature 37.8, one- time blood pressure 102. We will treated treated patient with antibiotics, intravenous IV fluids, closely monitor patient sepsis. Blood culture is done in pending. (2) Fall from ground level Conclusion/Plan: Continue for precaution of fall, continue physical therapist and occupational therapist of evaluation and treatment, discussed care plan with the patient's daughter, patient's daughter she has no issue if patient needed SNF. Patient had 2 unwitnessed fall in the [place]. CAT scan of the head show no acute finding. X-ray will of hip suggestion osteopenia with Minimally displaced left inferior public ramus fracture, without hip fracture, likely chronic from her osteopenia. We will pain control, we will have physical therapist and occupational therapist for patient, Continue fall precaution, Add calcium carbonate and vitamin D3 for patient's osteopenia. (3) Altered mental status Conclusion/Plan: Patient continue sleep,Patient's daughter reported patient did have a lot of sleep when she is in the [facility]. Patient make snoring, they request patient to have sleep study but not to be finished yet. advise pt followup with pulmonolgist to have sleep study. Patient has a history of dimension plus active urinary tract infection, some marital status change present. We will treat underlying infection, give patient intravenous IV fluids, neuro check (4) Fracture of inferior pubic ramus Conclusion/Plan: Nurse report patient has 3 of 10 the pain at her pelvic/hip. Continue pain control, continue PT/OT Patient complaint hip pain, x-ray show minimally fracture of inferior pubic ramus, likely caused by osteopenia with her fall. Pain control, with calcium and vitamin D3, PT/OT (5) Weakness Conclusion/Plan: Patient present weakness, and minimally fracture in her public ramus. We will have physical therapist and occupational therapist for patient (6) Diabetes Conclusion/Plan: Patient has history diabetic, will resume home Lantus and start with sliding scale, check A1c, start with hypoglycemia protocol (7) Hx of deep venous thrombosis Conclusion/Plan: Patient has a history of DVT, will resume home Xarelto. (3) Altered mental status Qualifiers: Altered mental status type: disorientation Qualified Code(s): R41.0 - Disorientation, unspecified (4) Fracture of inferior pubic ramus Qualifiers: Encounter type: initial encounter Fracture type: closed Laterality: left Qualified Code(s): S32.592A - Other specified fracture of left pubis, initial encounter for closed fracture - Current Meds Current Meds: Current Medications Generic Name Dose Route Start Last Admin Trade Name Freq PRN Reason Stop Dose Admin Acetaminophen 650 mg 01/02/20 15:50 01/03/20 08:29 Tylenol PO 650 mg Q4HR PRN Administration Pain 1 to 4 Calcium Carbonate/Glycine 500 mg 01/02/20 21:00 01/03/20 08:29 Tums PO 500 mg BID ROGER Administration Cholecalciferol 800 unit 01/03/20 09:00 01/03/20 08:29 Vitamin D3 PO 800 unit DAILY ROGER Administration Ceftriaxone Sodium 1 gm/ 100 mls @ 200 mls/hr 01/03/20 09:00 01/03/20 08:54 Sodium Chloride IV Infused DAILY ROGER Infusion Sodium Chloride 1,000 mls @ 75 mls/hr 01/03/20 07:41 01/03/20 08:23 Normal Saline 0.9% IV 01/04/20 10:20 75 mls/hr .[id number] ROGER Administration Insulin Aspart 1 - 9 unit 01/02/20 17:00 01/03/20 11:47 Novolog SUBQ 1 unit 0800,1200,1700,2100 ROGER Administration Protocol Insulin Glargine 5 unit 01/03/20 08:00 01/03/20 08:35 Lantus Solostar SUBQ 5 unit QDBREAKFAST ROGER Administration Oxycodone HCl 5 mg 01/02/20 18:15 01/03/20 12:51 Roxicodone PO 5 mg Q4HR PRN Administration PAIN Pantoprazole Sodium 40 mg 01/03/20 07:00 01/03/20 06:57 Protonix PO 40 mg QDAC ROGER Administration Sodium Chloride 10 ml 01/02/20 17:00 01/03/20 08:37 Normal Saline Flush 0.9% IVP 10 ml 0100,0900,1700 [facility] Administration - Lab Result Fish Bone Diagrams: 01/03/20 04:45 01/03/20 04:45 - Additional Planning My Orders: My Active Orders 01/02/20 15:50 Activity Orders [RC] Q2HR IO [RC] IOSHIFT Initiate Bowel Care Protocol [RC] .protocol Initiate Flu Vaccine Screening [RC] ONCE Initiate Line Care Protocol [RC] QSHIFT Initiate Personal Care Protoco [RC] .protocol Initiate Pneumonia Vaccine Scr [RC] ONCE Oxygen Therapy [RC] Routine Vital Signs [RC] Q4HR Acetaminophen [Tylenol] 650 mg PO Q4HR PRN Ondansetron Inj [Zofran Inj] 4 mg IVP Q6HR PRN Sodium Chloride Flush 0.9% [Normal Saline Flush 0.9%] 10 ml IVP PRN PRN Code Status [OTHERS] Routine Condition of Patient [OTHERS] Routine DVT Prophylaxis [OTHERS] Routine 01/02/20 15:53 SCDs [RC] QSHIFT Telemetry- [RC] Q4H 01/02/20 15:54 Evaluate and Treat OT [OT] Routine Evaluate and Treat PT [PT] Routine 01/02/20 16:01 Blood Glucose Checks - Eating [RC] 0800,1200,1700,2100 Initiate Hypoglycemia Protocol [RC] .protocol 01/02/20 Dinner Carb-controlled Diet [DIET] 01/02/20 17:00 Insulin Aspart [NovoLOG] 1 - 9 unit SUBQ 0800,1200,1700,2100 Sodium Chloride Flush 0.9% [Normal Saline Flush 0.9%] 10 ml IVP 0100,0900,1700 01/02/20 17:34 Code Status [OTHERS] Routine 01/02/20 18:15 oxyCODONE [Roxicodone] 5 mg PO Q4HR PRN 01/02/20 18:19 Neuro Check [RC] QSHIFT 01/02/20 18:45 Blood Culture [CULTURE, BLOOD #1] [RM] Urgent 01/02/20 18:52 Blood Culture [CULTURE, BLOOD #2] [RM] Urgent 01/02/20 21:00 Calcium Carbonate [Tums] 500 mg PO BID 01/03/20 07:00 Pantoprazole [Protonix] 40 mg PO QDAC 09/16/20 07:41 Sodium Chloride 0.9% [Normal Saline 0.9%] 1,000 ml IV 75 mls/hr 01/03/20 08:00 Insulin Glargine [Lantus Solostar] 5 unit SUBQ QDBREAKFAST 01/03/20 09:00 Cholecalciferol [Vitamin D3] 800 unit PO DAILY cefTRIAXone [Rocephin] 1 gm Sodium Chloride 0.9% Minibag [Normal Saline 0.9% Minibag] 100 ml IV DAILY 01/03/20 11:45 COVID-19 REFERENCE TEST Routine 01/03/20 17:00 Rivaroxaban [Xarelto] 20 mg PO QDDINNER 01/04/20 05:00 BMP - BASIC METABOLIC PANEL [CHEM] DAILYLAB CBC - COMP BLD CT W/AUTO DIFF [HEME] DAILYLAB 01/05/20 05:00 BMP - BASIC METABOLIC PANEL [CHEM] DAILYLAB CBC - COMP BLD CT W/AUTO DIFF [HEME] DAILYLAB 01/06/20 05:00 BMP - BASIC METABOLIC PANEL [CHEM] DAILYLAB CBC - COMP BLD CT W/AUTO DIFF [HEME] DAILYLAB Subjective - Subjective Patient Reports: Resting Comfortably Objective Vital Signs: Vital Signs - 24 hr 01/02/20 01/02/20 01/02/20 16:13 16:38 20:33 Temperature 36.8 C 36.6 C 37.0 C Heart Rate 86 Heart Rate [ Activity] Heart Rate [ 81 97 Brachial] Heart Rate [ Sitting] Heart Rate [ Supine] Respiratory 18 18 18 Rate Blood Pressure 120/71 Blood Pressure [Activity] Blood Pressure 132/78 H 127/88 H [Left Brachial artery] Blood Pressure [Sitting] Blood Pressure [Supine] O2 Saturation 98 97 100 01/02/20 01/03/20 01/03/20 23:14 03:55 07:54 Temperature 37.1 C 36.8 C 36.9 C Heart Rate Heart Rate [ Activity] Heart Rate [ 79 83 71 Brachial] Heart Rate [ Sitting] Heart Rate [ Supine] Respiratory 18 16 18 Rate Blood Pressure Blood Pressure [Activity] Blood Pressure 119/64 122/62 109/74 [Left Brachial artery] Blood Pressure [Sitting] Blood Pressure [Supine] O2 Saturation 99 92 92 01/03/20 01/03/20 12:20 12:25 Temperature 36.7 C Heart Rate Heart Rate [ 75 Activity] Heart Rate [ 65 Brachial] Heart Rate [ 76 Sitting] Heart Rate [ 67 Supine] Respiratory 18 Rate Blood Pressure Blood Pressure 113/55 L [Activity] Blood Pressure 104/59 L [Left Brachial artery] Blood Pressure 113/55 L [Sitting] Blood Pressure 97/53 L [Supine] O2 Saturation 95 Oxygen O2 Source Room air I&O (Last 24 Hrs): Intake and Output Totals x24h 01/01/20 01/02/20 01/03/20 23:59 23:59 23:59 Intake Total 6742.614 1226.667 Output Total 650 1000 Balance 748.333 656.667 General: Alert, No acute distress Neck: Supple Lymphatic: no adenopathy Neuro: Alert, Non Focal Cardiovascular: Regular rate, Normal S1, Normal S2 Respiratory: Chest non-tender, No respiratory distress Abdomen: Normal bowel sounds, Soft Extremities: Normal pulses - Results Results: Laboratory Results WBC 7.1 x10^3/uL (4.8-10.8) 01/03/20 04:45 RBC 4.08 10^6/uL (4.20-5.40) L 01/03/20 04:45 Hgb 12.9 g/dL (12.0-16.0) 01/03/20 04:45 Hct 39.6 % (37.0-47.0) 01/03/20 04:45 MCV 97.1 fL (81.0-99.0) 01/03/20 04:45 MCH 31.6 pg (27.0-31.0) H 01/03/20 04:45 MCHC 32.6 g/dL (32.0-36.0) 01/03/20 04:45 RDW 13.1 % (12.0-15.0) 01/03/20 04:45 Plt Count 228 10^3/uL (130-450) 01/03/20 04:45 MPV 8.7 fL (7.9-10.8) 01/03/20 04:45 Neut # (Auto) 3.4 10^3/uL (1.5-6.6) 01/03/20 04:45 Lymph # (Auto) 2.9 10^3/uL (1.5-3.5) 01/03/20 04:45 Garza # (Auto) 0.5 10^3/uL (0.0-1.0) 01/03/20 04:45 Eos # (Auto) 0.1 10^3/uL (0.0-0.7) 01/03/20 04:45 Baso # (Auto) 0.1 10^3/uL (0.0-0.1) 01/03/20 04:45 Absolute Nucleated RBC 0.00 x10^3/uL 01/03/20 04:45 Nucleated RBC % 0.0 /100WBC 01/03/20 04:45 Sodium 134 mmol/L (135-145) L 01/03/20 04:45 Potassium 3.8 mmol/L (3.5-5.0) 01/03/20 04:45 Chloride 105 mmol/L (101-111) 01/03/20 04:45 Carbon Dioxide 22 mmol/L (21-32) 01/03/20 04:45 Anion Gap 7.0 (6-13) 01/03/20 04:45 BUN 11 mg/dL (6-20) 01/03/20 04:45 Creatinine 0.6 mg/dL (0.4-1.0) 01/03/20 04:45 Estimated GFR (MDRD) 96 (>89) 01/03/20 04:45 Glucose 127 mg/dL (70-100) H 01/03/20 04:45 Estimat Average Glucose 160 mg/dL (70-100) H 01/03/20 04:45 Hemoglobin A1c % 7.2 % (4.27-6.07) H 01/03/20 04:45 Calcium 9.1 mg/dL (8.5-10.3) 01/03/20 04:45 Magnesium 2.0 mg/dL (1.7-2.8) 01/03/20 04:45 Total Bilirubin 0.5 mg/dL (0.2-1.0) 01/02/20 10:25 AST 24 IU/L (10-42) 01/02/20 10:25 ALT 20 IU/L (10-60) 01/02/20 10:25 Alkaline Phosphatase 109 IU/L (42-121) 01/02/20 10:25 Total Protein 7.9 g/dL (6.7-8.2) 01/02/20 10:25 Albumin 4.2 g/dL (3.2-5.5) 01/02/20 10:25 Globulin 3.7 g/dL (2.1-4.2) 01/02/20 10:25 Albumin/Globulin Ratio 1.1 (1.0-2.2) 01/02/20 10:25 Lipase 28 U/L (22-51) 01/02/20 10:25 Urine Color YELLOW 01/02/20 12:55 Urine Clarity CLOUDY (CLEAR) 01/02/20 12:55 Urine pH 6.0 PH (5.0-7.5) 01/02/20 12:55 Ur Specific [place] 1.025 (1.002-1.030) 01/02/20 12:55 Urine Protein NEGATIVE mg/dL (NEGATIVE) 01/02/20 12:55 Urine Glucose (UA) NEGATIVE mg/dL (NEGATIVE) 01/02/20 12:55 Urine Ketones NEGATIVE mg/dL (NEGATIVE) 01/02/20 12:55 Urine Occult Blood SMALL (NEGATIVE) H 01/02/20 12:55 Urine Nitrite POSITIVE (NEGATIVE) H 01/02/20 12:55 Urine Bilirubin NEGATIVE (NEGATIVE) 01/02/20 12:55 Urine Urobilinogen 0.2 (NORMAL) E.U./dL (NORMAL) 01/02/20 12:55 Ur Leukocyte Esterase MODERATE (NEGATIVE) H 01/02/20 12:55 Urine RBC 0-5 /HPF (0-5) 01/02/20 12:55 Urine WBC >25 /HPF (0-5) H 01/02/20 12:55 Ur Squamous Epith Cells RARE Squamous (<= Few) 01/02/20 12:55 Urine Bacteria Many /HPF (None Seen) H 01/02/20 12:55 Ur Microscopic Review INDICATED 01/02/20 12:55 Urine Culture Comments INDICATED 01/02/20 12:55 - Procedures Procedures: Procedures ENDO RECTUM POLYPECTOMY (07/20/14) ESOPHAGOGASTRODUODENOSCOPY [EGD] W/CLOSED BIOPSY (07/07/13) Sepsis Event Note (H) - Evaluation Current Stage of Sepsis: Sepsis - Sepsis Criteria Sepsis Criteria: Suspected or Documented, Recorded Heart Rate greater than 90 bpm ABX Reporting Has patient been on IV antibiotics over the past 48 hours?: Yes Current Medications - Current Medications Current Medications: Active Medications Acetaminophen (Tylenol) 650 mg PO Q4HR PRN PRN Reason: Pain 1 to 4 Last Admin: 01/03/20 08:29 Dose: 650 mg Documented by: Calcium Carbonate/Glycine (Tums) 500 mg PO BID [facility] Last Admin: 01/03/20 08:29 Dose: 500 mg Documented by: Cholecalciferol (Vitamin D3) 800 unit PO DAILY [facility] Last Admin: 01/03/20 08:29 Dose: 800 unit Documented by: Ceftriaxone Sodium 1 gm/ (Sodium Chloride) 100 mls @ 200 mls/hr IV DAILY [facility] Last Infusion: 01/03/20 08:54 Dose: Infused Documented by: Sodium Chloride (Normal Saline 0.9%) 1,000 mls @ 75 mls/hr IV .[id number] [facility] Stop: 01/04/20 10:20 Last Admin: 01/03/20 08:23 Dose: 75 mls/hr Documented by: Insulin Aspart (Novolog) 1 - 9 unit SUBQ 0800,1200,1700,2100 [facility]; Protocol Last Admin: 01/03/20 11:47 Dose: 1 unit Documented by: Insulin Glargine (Lantus Solostar) 5 unit SUBQ QDBREAKFAST [facility] Last Admin: 01/03/20 08:35 Dose: 5 unit Documented by: Ondansetron HCl (Zofran Inj) 4 mg IVP Q6HR PRN PRN Reason: Nausea / Vomiting Oxycodone HCl (Roxicodone) 5 mg PO Q4HR PRN PRN Reason: PAIN Last Admin: 01/03/20 12:51 Dose: 5 mg Documented by: Pantoprazole Sodium (Protonix) 40 mg PO QDAC [facility] Last Admin: 01/03/20 06:57 Dose: 40 mg Documented by: Rivaroxaban (Xarelto) 20 mg PO QDDINNER [facility] Saccharomyces Boulardii (Florastor) 250 mg PO BIDWM [facility] Sodium Chloride (Normal Saline Flush 0.9%) 10 ml IVP PRN PRN PRN Reason: NEEDED PER PROVIDER ORDERS Sodium Chloride (Normal Saline Flush 0.9%) 10 ml IVP 0100,0900,1700 [facility] Last Admin: 01/03/20 08:37 Dose: 10 ml Documented by: Aspirin [Aspir 81] 81 mg PO DAILY 02/01/15 Docusate Sodium [Stool Softener] 250 mg PO BID PRN 02/01/15 polyethylene glycoL 3350 [Miralax] 17 gm PO Q2D PRN 02/01/15 Pravastatin [Pravachol] 40 mg PO QPM 07/11/19 Acetaminophen [Tylenol] 325 mg PO Q6H PRN 01/03/20 Insulin Lispro [Humalog] 0 - 6 unit SUBQ TIDWM PRN 01/03/20 Insulin Lispro [Humalog] 12 unit SUBQ QDAC 01/03/20 Insulin Lispro [Humalog] 13 unit SUBQ QDLUNCH 01/03/20 Insulin Lispro [Humalog] 19 unit SUBQ QDDINNER 01/03/20 Multivitamin [Multiple Vitamins] 1 tab PO DAILY 01/03/20 Rivaroxaban [Xarelto] 20 mg PO DAILY 01/03/20
[2020-01-03] MEDS: RIVAROXABAN 10 MG TABLET PO SCH (16:47)
[2020-01-03] MEDS: SACCHAROMYCES BOULARDII 250 MG CAPSULE PO SCH (16:47)
[2020-01-04] MEDS: SODIUM CHLORIDE FLUSH 0.9% 10 ML SYRINGE IVP SCH ×3 (01:14→17:06)
[2020-01-04 05:26] LABS: BASOPHILS # (AUTO) 0.1 10^3/uL (0.0-0.1); BASOPHILS % (AUTO) 0.6 %; EOSINOPHILS # (AUTO) 0.2 10^3/uL (0.0-0.7); EOSINOPHILS % (AUTO) 2.9 %; HGB - HEMOGLOBIN 12.8 g/dL (12.0-16.0); LYMPHOCYTES # (AUTO) 3.5 10^3/uL (1.5-3.5); LYMPHOCYTES % (AUTO) 42.2 %; MEAN CORPUSCULAR HEMOGLOBIN 30.9 pg (27.0-31.0); MEAN CORPUSCULAR HGB CONC 31.8 g/dL (32.0-36.0); MEAN CORPUSCULAR VOLUME 97.1 fL (81.0-99.0); MEAN PLATELET VOLUME 8.7 fL (7.9-10.8); MONOCYTES # (AUTO) 0.5 10^3/uL (0.0-1.0); MONOCYTES % (AUTO) 6.5 %; NEUTROPHILS # (AUTO) 3.9 10^3/uL (1.5-6.6); NEUTROPHILS % (AUTO) 47.4 %; PLT - PLATELET COUNT 219 10^3/uL (130-450); RED BLOOD COUNT 4.14 10^6/uL (4.20-5.40); RED CELL DISTRIBUTION WIDTH 12.8 % (12.0-15.0); WHITE BLOOD COUNT 8.3 x10^3/uL (4.8-10.8)
[2020-01-04 05:38] LABS: CALCIUM 9.3 mg/dL (8.5-10.3); CREATININE 0.6 mg/dL (0.4-1.0)
[2020-01-04] MEDS: PANTOPRAZOLE 40 MG TABLET PO SCH (06:13)
[2020-01-04] MEDS: INSULIN ASPART 300 UNIT/3 ML PEN SUBQ SCH ×4 (10:01→21:29)
[2020-01-04] MEDS: cefTRIAXone 1 GM in SODIUM CHLORIDE 0.9% MINIBAG 100 ML IV SCH (10:08)
[2020-01-04] MEDS: SACCHAROMYCES BOULARDII 250 MG CAPSULE PO SCH ×2 (10:11→17:06)
[2020-01-04] MEDS: CHOLECALCIFEROL 400 UNIT TABLET PO SCH (10:11)
[2020-01-04] MEDS: CALCIUM CARBONATE CHEW 500 MG TABLET PO SCH ×2 (10:11→21:29)
[2020-01-04] MEDS: ACETAMINOPHEN 325 MG TABLET PO PRN (10:11)
[2020-01-04] MEDS: INSULIN GLARGINE 300 UNIT/3 ML PEN SUBQ SCH (10:19)
--- NOTE | 2020-01-04 15:58 | PROVIDER PROGRESS NOTE ---
Assessment/Plan - Problem List (1) UTI (urinary tract infection) Qualifiers: Urinary tract infection type: acute cystitis Hematuria presence: without hematuria Qualified Code(s): N30.00 - Acute cystitis without hematuria Assessment/Plan: 01/03 Continue intravenous Rocephin, Sensitivity studies is pending 01/02 Urine culture show Negative rods, Sensitivity studies is pending. Continue antibiotic Rocephin. order probiotics Urinalysis show patient has a UTI,Patient had elevated temperature 37.8, one- time blood pressure 102. We will treated treated patient with antibiotics, intravenous IV fluids, closely monitor patient sepsis. Blood culture is done in pending. (2) Fall from ground level Conclusion/Plan: continue pain control, PT/OT 01/02Continue for precaution of fall, continue physical therapist and occupational therapist of evaluation and treatment, discussed care plan with the patient's daughter, patient's daughter she has no issue if patient needed SNF. Patient had 2 unwitnessed fall in the [place]. CAT scan of the head show no acute finding. X-ray will of hip suggestion osteopenia with Minimally displaced left inferior public ramus fracture, without hip fracture, likely chronic from her osteopenia. We will pain control, we will have physical therapist and occupational therapist for patient, Continue fall precaution, Add calcium carbonate and vitamin D3 for patient's osteopenia. (3) Altered mental status Conclusion/Plan: ,Patient more alert, she speak with me today. oriented herself. improved significantly. 01/02, Patient continue sleep,Patient's daughter reported patient did have a lot of sleep when she is in the [facility]. Patient make snoring, they request patient to have sleep study but not to be finished yet. advise pt followup with pulmonolgist to have sleep study. Patient has a history of dimension plus active urinary tract infection, some marital status change present. We will treat underlying infection, give patient intravenous IV fluids, neuro check (4) Fracture of inferior pubic ramus Conclusion/Plan: Nurse report patient has 3 of 10 the pain at her pelvic/hip. Continue pain control, continue PT/OT Patient complaint hip pain, x-ray show minimally fracture of inferior pubic ramus, likely caused by osteopenia with her fall. Pain control, with calcium and vitamin D3, PT/OT (5) Weakness Conclusion/Plan: 01/03, Continue physical therapist and occupational therapist, PerPT/OT recommendation, plan discharge on tomorrow to SNF Patient present weakness, and minimally fracture in her public ramus. We will have physical therapist and occupational therapist for patient (6) Diabetes Conclusion/Plan: Patient has history diabetic, will resume home Lantus and start with sliding scale, check A1c, start with hypoglycemia protocol (7) Hx of deep venous thrombosis Conclusion/Plan: Patient has a history of DVT, will resume home Xarelto. (3) Altered mental status Qualifiers: Altered mental status type: disorientation Qualified Code(s): R41.0 - Disorientation, unspecified (4) Fracture of inferior pubic ramus Qualifiers: Encounter type: initial encounter Fracture type: closed Laterality: left Qualified Code(s): S32.592A - Other specified fracture of left pubis, initial encounter for closed fracture - Current Meds Current Meds: Current Medications Generic Name Dose Route Start Last Admin Trade Name Freq PRN Reason Stop Dose Admin Acetaminophen 650 mg 01/02/20 15:50 01/04/20 10:11 Tylenol PO 650 mg Q4HR PRN Administration Pain 1 to 4 Calcium Carbonate/Glycine 500 mg 01/02/20 21:00 01/04/20 10:11 Tums PO 500 mg BID ROGER Administration Cholecalciferol 800 unit 01/03/20 09:00 01/04/20 10:11 Vitamin D3 PO 800 unit DAILY ROGER Administration Ceftriaxone Sodium 1 gm/ 100 mls @ 200 mls/hr 01/03/20 09:00 01/04/20 10:40 Sodium Chloride IV Infused DAILY ROGER Infusion Insulin Aspart 1 - 9 unit 01/02/20 17:00 01/04/20 12:05 Novolog SUBQ 3 unit 0800,1200,1700,2100 ROGER Administration Protocol Insulin Glargine 5 unit 01/03/20 08:00 01/04/20 10:19 Lantus Solostar SUBQ 5 unit QDBREAKFAST R[facility]ER Administration Oxycodone HCl 5 mg 01/02/20 18:15 01/03/20 12:51 Roxicodone PO 5 mg Q4HR PRN Administration PAIN Pantoprazole Sodium 40 mg 01/03/20 07:00 01/04/20 06:13 Protonix PO 40 mg QDAC ROGER Administration Rivaroxaban 20 mg 01/03/20 17:00 01/03/20 16:47 Xarelto PO 20 mg QDDINNER ROGER Administration Saccharomyces Boulardii 250 mg 01/03/20 17:00 01/04/20 10:11 Florastor PO 250 mg BIDWM ROGER Administration Sodium Chloride 10 ml 01/02/20 17:00 01/04/20 10:11 Normal Saline Flush 0.9% IVP 10 ml 0100,0900,1700 ROGER Administration - Lab Result Fish Bone Diagrams: 01/04/20 04:50 01/04/20 04:50 - Additional Planning My Orders: My Active Orders 01/03/20 17:00 Rivaroxaban [Xarelto] 20 mg PO QDDINNER Saccharomyces Boulardii [Florastor] 250 mg PO BIDWM 01/05/20 05:00 BMP - BASIC METABOLIC PANEL [CHEM] DAILYLAB CBC - COMP BLD CT W/AUTO DIFF [HEME] DAILYLAB 01/06/20 05:00 BMP - BASIC METABOLIC PANEL [CHEM] DAILYLAB CBC - COMP BLD CT W/AUTO DIFF [HEME] DAILYLAB Subjective - Subjective Patient Reports: Feeling Better Objective Vital Signs: Vital Signs - 24 hr 01/03/20 01/03/20 01/04/20 17:00 21:00 01:00 Temperature 36.6 C 37.0 C 36.8 C Heart Rate [ 67 78 72 Brachial] Respiratory 20 20 17 Rate Blood Pressure 102/62 148/80 H 136/70 H [Left Brachial artery] Blood Pressure [Right Brachial artery] O2 Saturation 93 98 97 01/04/20 01/04/20 01/04/20 05:00 07:33 12:39 Temperature 36.4 C L 36.8 C 36.7 C Heart Rate [ 68 65 76 Brachial] Respiratory 16 20 18 Rate Blood Pressure [Left Brachial artery] Blood Pressure 121/78 122/69 132/72 H [Right Brachial artery] O2 Saturation 94 94 98 Oxygen O2 Source Room air I&O (Last 24 Hrs): Intake and Output Totals x24h 01/02/20 01/03/20 01/04/20 23:59 23:59 23:59 Intake Total 2578.704 6035.167 1580 Output Total 650 2300 500 Balance 748.333 49.167 1080 General: Alert, Cooperative, No acute distress HEENT: Atraumatic Neck: Supple Lymphatic: no adenopathy Neuro: Alert, Non Focal Cardiovascular: Regular rate, Normal S1, Normal S2 Respiratory: Chest non-tender, No respiratory distress Abdomen: Normal bowel sounds, Soft Extremities: Normal pulses - Results Results: Laboratory Results WBC 8.3 x10^3/uL (4.8-10.8) 01/04/20 04:50 RBC 4.14 10^6/uL (4.20-5.40) L 01/04/20 04:50 Hgb 12.8 g/dL (12.0-16.0) 01/04/20 04:50 Hct 40.2 % (37.0-47.0) 01/04/20 04:50 MCV 97.1 fL (81.0-99.0) 01/04/20 04:50 MCH 30.9 pg (27.0-31.0) 01/04/20 04:50 MCHC 31.8 g/dL (32.0-36.0) L 01/04/20 04:50 RDW 12.8 % (12.0-15.0) 01/04/20 04:50 Plt Count 219 10^3/uL (130-450) 01/04/20 04:50 MPV 8.7 fL (7.9-10.8) 01/04/20 04:50 Neut # (Auto) 3.9 10^3/uL (1.5-6.6) 01/04/20 04:50 Lymph # (Auto) 3.5 10^3/uL (1.5-3.5) 01/04/20 04:50 [place] # (Auto) 0.5 10^3/uL (0.0-1.0) 01/04/20 04:50 Eos # (Auto) 0.2 10^3/uL (0.0-0.7) 01/04/20 04:50 Baso # (Auto) 0.1 10^3/uL (0.0-0.1) 01/04/20 04:50 Absolute Nucleated RBC 0.00 x10^3/uL 01/04/20 04:50 Nucleated RBC % 0.0 /100WBC 01/04/20 04:50 Sodium 138 mmol/L (135-145) 01/04/20 04:50 Potassium 3.7 mmol/L (3.5-5.0) 01/04/20 04:50 Chloride 106 mmol/L (101-111) 01/04/20 04:50 Carbon Dioxide 25 mmol/L (21-32) 01/04/20 04:50 Anion Gap 7.0 (6-13) 01/04/20 04:50 BUN 10 mg/dL (6-20) 01/04/20 04:50 Creatinine 0.6 mg/dL (0.4-1.0) 01/04/20 04:50 Estimated GFR (MDRD) 96 (>89) 01/04/20 04:50 Glucose 128 mg/dL (70-100) H 01/04/20 04:50 POC Whole Bld Glucose 199 mg/dL (70 - 100) H 01/04/20 11:34 Estimat Average Glucose 160 mg/dL (70-100) H 01/03/20 04:45 Hemoglobin A1c % 7.2 % (4.27-6.07) H 01/03/20 04:45 Calcium 9.3 mg/dL (8.5-10.3) 01/04/20 04:50 Magnesium 2.0 mg/dL (1.7-2.8) 01/03/20 04:45 Total Bilirubin 0.5 mg/dL (0.2-1.0) 01/02/20 10:25 AST 24 IU/L (10-42) 01/02/20 10:25 ALT 20 IU/L (10-60) 01/02/20 10:25 Alkaline Phosphatase 109 IU/L (42-121) 01/02/20 10:25 Total Protein 7.9 g/dL (6.7-8.2) 01/02/20 10:25 Albumin 4.2 g/dL (3.2-5.5) 01/02/20 10:25 Globulin 3.7 g/dL (2.1-4.2) 01/02/20 10:25 Albumin/Globulin Ratio 1.1 (1.0-2.2) 01/02/20 10:25 Lipase 28 U/L (22-51) 01/02/20 10:25 Urine Color YELLOW 01/02/20 12:55 Urine Clarity CLOUDY (CLEAR) 01/02/20 12:55 Urine pH 6.0 PH (5.0-7.5) 01/02/20 12:55 Ur Specific [place] 1.025 (1.002-1.030) 01/02/20 12:55 Urine Protein NEGATIVE mg/dL (NEGATIVE) 01/02/20 12:55 Urine Glucose (UA) NEGATIVE mg/dL (NEGATIVE) 01/02/20 12:55 Urine Ketones NEGATIVE mg/dL (NEGATIVE) 01/02/20 12:55 Urine Occult Blood SMALL (NEGATIVE) H 01/02/20 12:55 Urine Nitrite POSITIVE (NEGATIVE) H 01/02/20 12:55 Urine Bilirubin NEGATIVE (NEGATIVE) 01/02/20 12:55 Urine Urobilinogen 0.2 (NORMAL) E.U./dL (NORMAL) 01/02/20 12:55 Ur Leukocyte Esterase MODERATE (NEGATIVE) H 01/02/20 12:55 Urine RBC 0-5 /HPF (0-5) 01/02/20 12:55 Urine WBC >25 /HPF (0-5) H 01/02/20 12:55 Ur Squamous Epith Cells RARE Squamous (<= Few) 01/02/20 12:55 Urine Bacteria Many /HPF (None Seen) H 01/02/20 12:55 Ur Microscopic Review INDICATED 01/02/20 12:55 Urine Culture Comments INDICATED 01/02/20 12:55 Coronavirus (PCR) NEGATIVE 01/03/20 11:45 - Procedures Procedures: Procedures ENDO RECTUM POLYPECTOMY (07/20/14) ESOPHAGOGASTRODUODENOSCOPY [EGD] W/CLOSED BIOPSY (07/07/13) Sepsis Event Note (H) - Evaluation Current Stage of Sepsis: Sepsis - Sepsis Criteria Sepsis Criteria: Suspected or Documented, Recorded Heart Rate greater than 90 bpm ABX Reporting Has patient been on IV antibiotics over the past 48 hours?: Yes Current Medications - Current Medications Current Medications: Active Medications Acetaminophen (Tylenol) 650 mg PO Q4HR PRN PRN Reason: Pain 1 to 4 Last Admin: 01/04/20 10:11 Dose: 650 mg Documented by: Calcium Carbonate/Glycine (Tums) 500 mg PO BID [facility] Last Admin: 01/04/20 10:11 Dose: 500 mg Documented by: Cholecalciferol (Vitamin D3) 800 unit PO DAILY [facility] Last Admin: 01/04/20 10:11 Dose: 800 unit Documented by: Ceftriaxone Sodium 1 gm/ (Sodium Chloride) 100 mls @ 200 mls/hr IV DAILY [facility] Last Infusion: 01/04/20 10:40 Dose: Infused Documented by: Insulin Aspart (Novolog) 1 - 9 unit SUBQ 0800,1200,1700,2100 [facility]; Protocol Last Admin: 01/04/20 12:05 Dose: 3 unit Documented by: Insulin Glargine (Lantus Solostar) 5 unit SUBQ QDBREAKFAST [facility] Last Admin: 01/04/20 10:19 Dose: 5 unit Documented by: Ondansetron HCl (Zofran Inj) 4 mg IVP Q6HR PRN PRN Reason: Nausea / Vomiting Oxycodone HCl (Roxicodone) 5 mg PO Q4HR PRN PRN Reason: PAIN Last Admin: 01/03/20 12:51 Dose: 5 mg Documented by: Pantoprazole Sodium (Protonix) 40 mg PO QDAC [facility] Last Admin: 01/04/20 06:13 Dose: 40 mg Documented by: Rivaroxaban (Xarelto) 20 mg PO QDDINNER [facility] Last Admin: 01/03/20 16:47 Dose: 20 mg Documented by: Saccharomyces Boulardii (Florastor) 250 mg PO BIDWM [facility] Last Admin: 01/04/20 10:11 Dose: 250 mg Documented by: Sodium Chloride (Normal Saline Flush 0.9%) 10 ml IVP PRN PRN PRN Reason: NEEDED PER PROVIDER ORDERS Sodium Chloride (Normal Saline Flush 0.9%) 10 ml IVP 0100,0900,1700 [facility] Last Admin: 01/04/20 10:11 Dose: 10 ml Documented by: Aspirin [Aspir 81] 81 mg PO DAILY 02/01/15 Docusate Sodium [Stool Softener] 250 mg PO BID PRN 02/01/15 polyethylene glycoL 3350 [Miralax] 17 gm PO Q2D PRN 02/01/15 Pravastatin [Pravachol] 40 mg PO QPM 07/11/19 Acetaminophen [Tylenol] 325 mg PO Q6H PRN 01/03/20 Insulin Lispro [Humalog] 0 - 6 unit SUBQ TIDWM PRN 01/03/20 Insulin Lispro [Humalog] 12 unit SUBQ QDAC 01/03/20 Insulin Lispro [Humalog] 13 unit SUBQ QDLUNCH 01/03/20 Insulin Lispro [Humalog] 19 unit SUBQ QDDINNER 01/03/20 Multivitamin [Multiple Vitamins] 1 tab PO DAILY 01/03/20 Rivaroxaban [Xarelto] 20 mg PO DAILY 01/03/20
[2020-01-04] MEDS: RIVAROXABAN 10 MG TABLET PO SCH (17:06)
[2020-01-05] MEDS: SODIUM CHLORIDE FLUSH 0.9% 10 ML SYRINGE IVP SCH ×2 (01:18→10:33)
[2020-01-05] MEDS: ACETAMINOPHEN 325 MG TABLET PO PRN ×2 (05:22→11:25)
[2020-01-05 05:46] LABS: BASOPHILS % (AUTO) 0.5 %; EOSINOPHILS # (AUTO) 0.2 10^3/uL (0.0-0.7); EOSINOPHILS % (AUTO) 2.4 %; HGB - HEMOGLOBIN 13.4 g/dL (12.0-16.0); LYMPHOCYTES # (AUTO) 3.8 10^3/uL (1.5-3.5); LYMPHOCYTES % (AUTO) 47.8 %; MEAN CORPUSCULAR HGB CONC 33.2 g/dL (32.0-36.0); MEAN CORPUSCULAR VOLUME 96.4 fL (81.0-99.0); MEAN PLATELET VOLUME 8.6 fL (7.9-10.8); MONOCYTES # (AUTO) 0.5 10^3/uL (0.0-1.0); MONOCYTES % (AUTO) 6.2 %; NEUTROPHILS # (AUTO) 3.4 10^3/uL (1.5-6.6); NEUTROPHILS % (AUTO) 42.7 %; PLT - PLATELET COUNT 224 10^3/uL (130-450); RED BLOOD COUNT 4.19 10^6/uL (4.20-5.40); RED CELL DISTRIBUTION WIDTH 12.7 % (12.0-15.0)
[2020-01-05 05:56] LABS: CALCIUM 9.8 mg/dL (8.5-10.3); CREATININE 0.6 mg/dL (0.4-1.0)
[2020-01-05] MEDS: PANTOPRAZOLE 40 MG TABLET PO SCH (06:22)
--- NOTE | 2020-01-05 07:51 | Discharge Plan ---
"Discharge Plan for SNF / [facility] - Discharge Plan And Transition Orders Problem Reviewed?: Yes Disposition: 03 SNF DC/Xfer Condition: Stable Allergies and Adverse Reactions: Allergies Allergy/AdvReac Type Severity Reaction Status Date / Time tetanus toxoid, adsorbed Allergy Unknown Verified 07/10/19 18:08 Health Concerns: UTI, fall, minimally displace fracture of inferior pubic ramus, DM2 Plan of Treatment: antibiotics Keflex is prescribed for pt to finish the treatment course for her UTI. precaution of fall, pt had hx of fall. pt has minimally displace fracture of inferior pubic ramus, osteopenia. pt is prescribed calcium/vitamin D3, and pain meds for pain control, continue PT/OT. For pt's DM2, pt used much more insulin at her nurse home. Now we send her used insulin regimen in hospital, advise adjust insulin dosage as needed Care Goals: stabilization and improvement of pt's medical conditions Assessment: discussed with pt and pt's daughter the care plan, they understood and agreed. - SNF / [facility] Transition Orders Admit to (Facility): [facility] Under the care of (Name): Provider of [facility] and PCP Dr. Jorge A Devine Discharge Diagnosis: UTI, AMS, Fall, fracture of inferior pubic ramus, osteopenia, weakness, diabetes, hx of DVT Medicare Certification Statement: I certify that [facility] residential care is medically necessary on a continuing basis for any of the conditions for which she/he is receiving care during hospitalization. Notify PCP of admission and forward orders to primary provider for signature. Weight on admission and: Daily Call PCP immediately if weight increases by: 2 kg Other Notification Orders: Call PCP immediately if patient develops dyspnea, chest pain/tightness or edema. House Bowel Program: Yes Additional Bowel Program Orders: If no BM after 2 days, nurse may give M.O.M. 30ml PO PRN and/or ducolax Supp 1 OK and/or RBIJESH 250mg P.O., and/or senna 1-2 tabs PO. On day 3 nurse may give repeat above order until residents constipation is resolved. Annual Influenza Vaccine (between Dec 18 and July 17): Yes Two-step PPD per [facility] [phone] or approved exception documents: Yes Treatments & Other Orders: antibiotics Keflex is prescribed for pt to finish the treatment course for her UTI. precaution of fall, pt had hx of fall. pt has minimally displace fracture of inferior pubic ramus, osteopenia. pt is prescribed calcium/vitamin D3, and pain meds for pain control, continue PT/OT. For pt's DM2, pt used much more insulin at her nurse home. Now we send her used insulin regimen in hospital, advise adjust insulin dosage as needed Medication Orders: PLEASE REFER TO THE DISCHARGE MEDICATION LIST. Insulin Orders?: Yes - Medications New Prescriptions: oxyCODONE [Roxicodone] 5 mg PO Q4HR PRN #20 tablet PRN Reason: Pain Saccharomyces Boulardii [Florastor] 250 mg PO BIDWM #10 capsule cephALEXin [Keflex] 250 mg PO Q6H #20 capsule Calcium Carbonate [Tums (Calcium Carbonate 500mg)] 500 mg PO BID #20 tablet Cholecalciferol [Vitamin D3] 800 unit PO DAILY #15 tablet - Diet Type: Geriatric Texture: Regular Liquids: Thin May have monthly special meal: Yes - Therapies | Activity Therapy: Evaluation | Treat if indicated: PT, OT Rehabilitation Potential: Maximize functional status Activity: Activity as Tolerated Insulin Orders - SNF Basal | Correction | Custom Orders: Diagnosis: Diabetes Initiate hypo and hyperglycemia protocols for BG <70 and BG >375. May check BG PRN for signs/symptoms of dysglycemia. Frequency of BG checks: [AC/Meal/HS] Basal Insulin: [] Lantus 100 units / ml inject subq as follows: [8 units daily breakfast] [] Other: [] Correction Insulin: - Select the type of insulin below [Choose: Novolog/Humalog]100 units /ml insulin inject subq per orders indicate below [] LOW DOSE [x] MODERATE DOSE [] MODERATE/HIGH DOSE [] HIGH DOSE GB UNITS GB UNITS GB UNITS GB UNITS 61-140 0 UNITS 61-140 0 UNITS 61-140 0 UNITS 61-140 0 UNITS 141-175 1 UNITS 141-175 1 UNITS 141-175 2 UNITS 141-175 3 UNITS 176-225 2 UNITS 176-225 3 UNITS 176-225 4 UNITS 176-225 5 UNITS 226-275 3 UNITS 226-275 5 UNITS 226-275 6 UNITS 226-275 7 UNITS 276-325 4 UNITS 276-325 7 UNITS 276-325 8 UNITS 276-325 9 UNITS 326-375 5 UNITS 326-375 9 UNITS 326-375 10 UNITS 326-375 11 UNITS >375 CONTACT MD >375 CONTACT MD >375 CONTACT MD >375 CONTACT MD Custom Dosing: [Choose: Novolog/Humalog] 100 units/ml Insulin inject subq as follows: GB Units 61-140 [] Units 141-175 [] Units 176-225 [] Units 226-275 [] Units 276-325 []Units 326-375 [] Units >375 Contact MD"
[2020-01-05] MEDS: INSULIN ASPART 300 UNIT/3 ML PEN SUBQ SCH ×2 (09:17→12:10)
[2020-01-05] MEDS: INSULIN GLARGINE 300 UNIT/3 ML PEN SUBQ SCH (09:19)
[2020-01-05] MEDS: CALCIUM CARBONATE CHEW 500 MG TABLET PO SCH (09:19)
[2020-01-05] MEDS: SACCHAROMYCES BOULARDII 250 MG CAPSULE PO SCH (09:19)
[2020-01-05] MEDS: CHOLECALCIFEROL 400 UNIT TABLET PO SCH (09:19)
[2020-01-05] MEDS: cefTRIAXone 1 GM in SODIUM CHLORIDE 0.9% MINIBAG 100 ML IV SCH (09:20)
--- NOTE | 2020-01-05 10:50 | DISCHARGE SUMMARY ---
Discharge Summary Admit Date: 01/02/20 Discharge Date: 01/05/20 Discharging Provider: Samm Kaur Primary Care Provider: Dr. Jorge A Devine Condition at Discharge: Stable Discharge Disposition: SNF DC/Xfer Discharge Facility Name: [facility] - DIAGNOSES Discharge Diagnoses with Status of Each Condition: (1) UTI (urinary tract infection) stable. pt has no fever, and WBC is normal, and hemodynamic stable. UA culture reveal pt has klebsiella Pneumoniea. pt is prescribed Keflex to finish the treatment course. (2) Fall from ground level Patient had 2 unwitnessed fall in the [employer]. CAT scan of the head show no acute finding. X-ray will of hip suggestion osteopenia with Minimally displaced left inferior public ramus fracture, without hip fracture. physical therapist and occupational therapist had evaluation and treatment for pt, and recommended to SNF. (3) Altered mental status resolved as pt's baseline. (4) Fracture of inferior pubic ramus x-ray show minimally fracture of inferior pubic ramus, likely caused by osteopenia with her fall. pt is prescribed pain meds, with calcium and vitamin D3, d/c to SNF continue to have PT/OT. (5) Weakness improved, d/c to SNF (6) Diabetes pt had A1C 7.2. pt had much more insulin taken in [place] comparing she had in the hospital. According pt at our hospital experience, pt is prescribed Lantus and Novolog (7) Hx of deep venous thrombosis stable, continue home Xarelto. - HPI History of Present Illness: This is a 84-year-old female with a past medical history significant for type 2 diabetes mellitus on insulin, Recently diagnosis with DVT on Xarelto,hypertension, dementia, Hard hearing who presents today from [facility] for evaluation of fall both last night and this morning. Patient has history of dementia and hard healing so she could not provide a history, patient's daughter is at bedside but she is just visiting her mother, so she did not provide history as well. Per ER report pt had fall in last night, she bumped into a washing machine, then in this morning she fell outside of the elevator on the way back from breakfast. These fall were unwitnessed, she denied in ER, hitting her head, she denies any pain to her head, and she denies any loss of consciousness. CT Show no acute finding, Chronic normal pressure hydrocephalus as noted again. X-ray of hip show osteopenia, suggestion of subtle minimally displaced left inferior pubic ramus fracture, No left hip fracture or dislocation, No evidence of avascular necrosis. In routine lab tests show patient has UTI, Vital signs in the ER show patient had a temperature 37.8. Systolic blood pressure at one was 102. Patient was admitted for further evaluation and treatment. Patient had PLOST shown DNR with limited intervention. Patient's daughter confirm this PLOST. - HOSPITAL COURSE Hospital Course: pt was admitted from [facility] for evaluation of fall both last night and this morning. pt had two fall. Xray of hip and pelvis show suggestion osteopenia with Minimally displaced left inferior public ramus fracture, without hip fracture. pt was found to have altered mental status and UTI. pt was treated with antibiotics for UTI, pt was prescribed calcium and vitamin D3 for her oestopenia. pt was prescribed pain meds and had PT/OT evaluation and treatment. pt was recommended to d/c to SNF. after treatment, pt's mental status returned her baseline. pt did have hx of dementia. pt was d/c to [facility] rehab with stable conditions. - ALLERGIES Allergies/Adverse Reactions: Allergies Allergy/AdvReac Type Severity Reaction Status Date / Time tetanus toxoid, adsorbed Allergy Unknown Verified 07/10/19 18:08 - MEDICATIONS Home Medications: Ambulatory Orders Medication Instructions Recorded Confirmed Aspirin [Aspir 81] 81 mg PO DAILY 02/01/15 01/03/20 Docusate Sodium [Stool Softener] 250 mg PO BID PRN 02/01/15 01/03/20 polyethylene glycoL 3350 [Miralax] 17 gm PO Q2D PRN 02/01/15 01/03/20 Pravastatin [Pravachol] 40 mg PO QPM 07/11/19 01/03/20 Acetaminophen [Tylenol] 325 mg PO Q6H PRN 01/03/20 01/03/20 Multivitamin [Multiple Vitamins] 1 tab PO DAILY 01/03/20 01/03/20 Rivaroxaban [Xarelto] 20 mg PO DAILY 01/03/20 01/03/20 Calcium Carbonate [Tums (Calcium 500 mg PO BID #20 tablet 01/05/20 Carbonate 500mg)] Cholecalciferol [Vitamin D3] 800 unit PO DAILY #15 tablet 01/05/20 Insulin Aspart [NovoLOG] 1 - 9 unit SUBQ TIDWM #2 pen 01/05/20 Insulin Glargine [Lantus Solostar] 8 unit SQ DAILY #2 pen 01/05/20 Saccharomyces Boulardii [Florastor] 250 mg PO BIDWM #10 capsule 01/05/20 cephALEXin [Keflex] 250 mg PO Q6H #20 capsule 01/05/20 oxyCODONE [Roxicodone] 5 mg PO Q4HR PRN #20 tablet 01/05/20 - PHYSICAL EXAM AT DISCHARGE General Appearance: positive: No acute distress, Alert. negative: Lethargic Eyes Bilateral: positive: Normal inspection, PERRL, No lid inflammation ENT: positive: ENT inspection nml, No signs of dehydration. negative: Purulent nasal drainage Neck: positive: Nml inspection, Thyroid nml, Trachea midline. negative: Thyromegaly, Stiff neck, Tracheal deviation Respiratory: positive: Chest non-tender, No respiratory distress. negative: Wheezes, Rales, Rhonchi Cardiovascular: positive: Regular rate & rhythm, No murmur. negative: Irregularly irregular, Tachycardia, Bradycardia, Systolic murmur, Diastolic murmur Peripheral Pulses: positive: 2+ Abdomen: positive: Non-tender, No organomegaly, Nml bowel sounds, No distention. negative: Tenderness, Guarding, Rebound Back: positive: Nml inspection Skin: positive: Color nml, No rash, Warm, Dry. negative: Cyanosis, Diaphoresis, Pallor Extremities: positive: Non-tender, Nml appearance. negative: Calf tenderness Neurologic/Psychiatric: positive: Sensation nml, Mood/affect nml. negative: Weakness, Sensory loss, Facial droop, Slurred/abnml speech, Depressed mood/affect - LABS Result Diagrams: 01/05/20 05:16 01/05/20 05:16 - SEPSIS Current Stage of Sepsis: Sepsis Sepsis Criteria: Suspected or Documented, Recorded Heart Rate greater than 90 bpm - FOLLOW UP Follow Up: aantibiotics Keflex is prescribed for pt to finish the treatment course for her UTI. precaution of fall, pt had hx of fall. pt has minimally displace fracture of inferior pubic ramus, osteopenia. pt is prescribed calcium/vitamin D3, and pain meds for pain control, continue PT/OT. For pt's DM2, pt used much more insulin at her nurse home. Now we send her used insulin regimen in hospital, advise adjust insulin dosage as needed. - TIME SPENT Time Spent in Discharge (Minutes): 30
[2020-01-05 11:24] VITALS: BP 105/69
== END 2020-01-05 13:07 | DRG 543 ==
LOC: EDUNIT# → ED 09:49 → MS2 11:50
PROVIDERS: ADMIT Internal Medicine Hematology & Oncology; ATTEND Internal Medicine Hematology & Oncology
DX: S32.592A Other specified fracture of left pubis, initial encounter for closed fracture (principal); W18.30XA Fall on same level, unspecified, initial encounter; Y92.098 Other place in other non-institutional residence as the place of occurrence of the external cause; M84.650A Pathological fracture in other disease, pelvis, initial encounter for fracture; E86.0 Dehydration; N30.00 Acute cystitis without hematuria; G91.2 (Idiopathic) normal pressure hydrocephalus; I82.409 Acute embolism and thrombosis of unspecified deep veins of unspecified lower extremity; B96.1 Klebsiella pneumoniae [K. pneumoniae] as the cause of diseases classified elsewhere; M85.88 Other specified disorders of bone density and structure, other site; R41.82 Altered mental status, unspecified; Z91.81 History of falling; E78.00 Pure hypercholesterolemia, unspecified; M16.12 Unilateral primary osteoarthritis, left hip; R53.1 Weakness; Z86.718 Personal history of other venous thrombosis and embolism; Z79.01 Long term (current) use of anticoagulants; E11.9 Type 2 diabetes mellitus without complications; Z79.4 Long term (current) use of insulin; F03.90 Unspecified dementia, unspecified severity, without behavioral disturbance, psychotic disturbance, mood disturbance, and anxiety; H91.90 Unspecified hearing loss, unspecified ear; Z66 Do not resuscitate; Z79.82 Long term (current) use of aspirin
CPT/HCPCS: 36415; 70450; 73502; 80048; 80053; 81001; 83036; 83690; 83735; 85025; 87040; 87086; 87181; 96360; 96361; 97161; 97166; 97530; 99284; 99285; A9270; J1815; U0004; 81003

== ENCOUNTER 2020-01-05 13:07 | Outpatient (CLI) | payer MEDICARE, OTHER | END 2020-01-05 13:08 | disposition other institution (70) | LOC: EMS 13:07 | PROVIDERS: ATTEND Surgery | DX: S32.591D Other specified fracture of right pubis, subsequent encounter for fracture with routine healing (principal); W19.XXXD Unspecified fall, subsequent encounter | CPT/HCPCS: A0425; A0428 ==

== ENCOUNTER 2021-05-08 11:09 | Outpatient (CLI) | payer MEDICARE, OTHER | END 2021-05-08 11:10 | disposition critical access hospital (66) | LOC: EMS 11:09 | DX: R53.83 Other fatigue (principal) | CPT/HCPCS: A0425; A0429 ==

== ENCOUNTER 2021-05-08 11:24 | Emergency (ER) | payer MEDICARE, OTHER ==
[2021-05-08] MEDS ORDERED: SODIUM CHLORIDE 0.9% 1,000 ML IV STA (11:35)
[2021-05-08 11:49] LABS: BASOPHILS # (AUTO) 0.1 10^3/uL (0.0-0.1); BASOPHILS % (AUTO) 0.6 %; EOSINOPHILS # (AUTO) 0.1 10^3/uL (0.0-0.7); EOSINOPHILS % (AUTO) 1.3 %; HCT - HEMATOCRIT 42.1 % (37.0-47.0); HGB - HEMOGLOBIN 13.7 g/dL (12.0-16.0); LYMPHOCYTES # (AUTO) 3.4 10^3/uL (1.5-3.5); LYMPHOCYTES % (AUTO) 32.5 %; MEAN CORPUSCULAR HEMOGLOBIN 31.1 pg (27.0-31.0); MEAN CORPUSCULAR HGB CONC 32.5 g/dL (32.0-36.0); MEAN CORPUSCULAR VOLUME 95.5 fL (81.0-99.0); MEAN PLATELET VOLUME 8.4 fL (7.9-10.8); MONOCYTES # (AUTO) 0.6 10^3/uL (0.0-1.0); NEUTROPHILS # (AUTO) 6.2 10^3/uL (1.5-6.6); NEUTROPHILS % (AUTO) 59.1 %; PLT - PLATELET COUNT 355 10^3/uL (130-450); RED BLOOD COUNT 4.41 10^6/uL (4.20-5.40); RED CELL DISTRIBUTION WIDTH 12.7 % (12.0-15.0); WHITE BLOOD COUNT 10.5 x10^3/uL (4.8-10.8)
[2021-05-08 12:01] LABS: ALBUMIN 3.2 g/dL (3.2-5.5); ALBUMIN/GLOBULIN RATIO 0.8 (1.0-2.2); ALKALINE PHOSPHATASE 71 IU/L (42-121); ALT ALANINE AMINOTRANSFERASE < 10 IU/L (10-60); AST ASPARTATE AMINOTRANSFERASE 19 IU/L (10-42); BILIRUBIN,TOTAL 0.7 mg/dL (0.2-1.0); BUN - BLOOD UREA NITROGEN 19 mg/dL (6-20); CALCIUM 9.5 mg/dL (8.5-10.3); CARBON DIOXIDE - CO2 25 mmol/L (21-32); CHLORIDE 99 mmol/L (101-111); CREATININE 0.6 mg/dL (0.4-1.0); GFR - MDRD 95 (>89); GLUCOSE 214 mg/dL (70-100); LIPASE 21 U/L (22-51); POTASSIUM 3.5 mmol/L (3.5-5.0); SODIUM 134 mmol/L (135-145)
--- NOTE | 2021-05-08 12:18 | XRAY Report ---
PROCEDURE: Chest 1 View X-Ray INDICATIONS: chest pain PRIORS: 07/10/19; 09/11/16; 03/26/16; 12/11/14 TECHNIQUE: One view of the chest was acquired. COMPARISON: September 11, 2016. FINDINGS: SUPPORT DEVICES: None. LUNGS/PLEURA: Reduced lung lungs with coarsened interstitial markings. No focal consolidation, pleura l effusion or space-occupying pneumothorax. MEDIASTINUM: The cardiac silhouette is partially obscured. BONES/SOFT TISSUES: No acute abnormality. Elevation of the left diaphragm. IMPRESSION: 1.No acute cardiopulmonary abnormality. Reviewed by: Andrew Palmer MD on 05/08/2021 12:17 PM PST Approved by: Andrew Palmer MD on 05/08/2021 12:17 PM [facility] [place] Station ID: [id number]
--- NOTE | 2021-05-08 12:38 | ED Physician Documentation ---
History of Present Illness - Stated complaint Stated Complaint: AMS - Chief complaint Chief Complaint: General - History obtained from History obtained from: EMS - Additonal information Additional information: The patient is sent to the emergency department by EMS for chief complaint of altered mental status. The patient is not able to offer any information, and she is severely demented and nonverbal at this time. Prior to her arrival, I had a lengthy conversation with her primary provider, Maribell Jatinder, who stated that the patient is a resident of [facility] and at baseline, is somewhat verbal but usually incoherent with her verbalizations. She does normally eat, but has not eaten for the last week and has had a steady decline in mental status. She has been afebrile at [facility]. The patient's children are divided as to what to do with the patient. The patient is already DNR with limited interventions, but some of the children want the patient to just go on hospice and others want the patient to have a full work-up to see what might be going on. Ms. Tobias has relayed that the decision that was made between the children was that they would send the patient to the emergency department, where it is requested that we do a basic work-up to see if there is something treatable. Additionally, the patient is most likely dehydrated, so they are requesting that she get some fluid while here. If nothing turns up on the work- up, then the patient may go back to [facility] and hospice consult has already been placed by Ms. Tobias. Ms. Tobias does report that she did start the patient on cefpodoxime yesterday prophylactically just in case there was an infection "somewhere". The patient has a history of UTI previously. It is reported that the patient has not been coughing or seem to be in any respiratory distress. She is vaccinated for COVID. No other complaints at this time. Review of Systems Unable to obtain: Dementia PD PAST MEDICAL HISTORY - Past Medical History Cardiovascular: Hypertension, High cholesterol Respiratory: Sleep apnea Neuro: Dementia Endocrine/Autoimmune: Type 2 diabetes GI: GERD : None HEENT: Other Psych: None Musculoskeletal: None Derm: None - Past Surgical History Past Surgical History: Yes General: Bowel surgery /BRIM BLOCKER: Hysterectomy Neuro: Craniotomy HEENT: Cataracts - Present Medications Home Medications: Ambulatory Orders Medication Instructions Recorded Confirmed Aspirin [Aspir 81] 81 mg PO DAILY 02/01/15 01/03/20 Docusate Sodium [Stool Softener] 250 mg PO BID PRN 02/01/15 01/03/20 polyethylene glycoL 3350 [Miralax] 17 gm PO Q2D PRN 02/01/15 01/03/20 Pravastatin [Pravachol] 40 mg PO QPM 07/11/19 01/03/20 Acetaminophen [Tylenol] 325 mg PO Q6H PRN 01/03/20 01/03/20 Multivitamin [Multiple Vitamins] 1 tab PO DAILY 01/03/20 01/03/20 Rivaroxaban [Xarelto] 20 mg PO DAILY 01/03/20 01/03/20 Calcium Carbonate [Tums (Calcium 500 mg PO BID #20 tablet 01/05/20 Carbonate 500mg)] Cholecalciferol [Vitamin D3] 800 unit PO DAILY #15 tablet 01/05/20 Insulin Aspart [NovoLOG] 1 - 9 unit SUBQ TIDWM #2 pen 01/05/20 Insulin Glargine [Lantus Solostar] 8 unit SQ DAILY #2 pen 01/05/20 Saccharomyces Boulardii [Florastor] 250 mg PO BIDWM #10 capsule 01/05/20 cephALEXin [Keflex] 250 mg PO Q6H #20 capsule 01/05/20 oxyCODONE [Roxicodone] 5 mg PO Q4HR PRN #20 tablet 01/05/20 - Allergies Allergies/Adverse Reactions: Allergies Allergy/AdvReac Type Severity Reaction Status Date / Time rosuvastatin [From Crestor] Allergy Unknown Verified 05/08/21 11:34 tetanus toxoid, adsorbed Allergy Unknown Verified 05/08/21 11:34 estroderm Allergy Unknown Uncoded 05/08/21 11:34 - Social History Does the pt smoke?: No Smoking Status: Never smoker Does the pt drink ETOH?: No Does the pt have substance abuse?: No - Immunizations Immunizations are current?: Yes PD ED PE NORMAL - Vitals Vital signs reviewed: Yes - General General: No acute distress, Well developed/nourished, Other (Patient is awake but not alert) - HEENT HEENT: Atraumatic, Moist mucous membranes - Cardiac Cardiac: RRR, No murmur, Strong equal pulses - Respiratory Respiratory: No respiratory distress, Clear bilaterally - Abdomen Abdomen: Soft, Non tender, Non distended - Derm Derm: Normal color, Warm and dry, No rash - Extremities Extremities: No deformity, No edema - Neuro Neuro: Other (The patient stares ahead without making eye contact. She will respond slowly to touch her to saying her name. Moving all 4 extremities grossl y. No verbalization.) - Psych Psych: Normal mood, Normal affect Results - Vitals Vitals: Oxygen O2 Source Room air - Labs Labs: Laboratory Tests 05/08/21 05/08/21 05/08/21 11:41 11:41 12:13 WBC 10.5 RBC 4.41 Hgb 13.7 Hct 42.1 MCV 95.5 MCH 31.1 H MCHC 32.5 RDW 12.7 Plt Count 355 MPV 8.4 Neut # (Auto) 6.2 Lymph # (Auto) 3.4 [place] # (Auto) 0.6 Eos # (Auto) 0.1 Baso # (Auto) 0.1 Absolute Nucleated RBC 0.00 Nucleated RBC % 0.0 Sodium 134 L Potassium 3.5 Chloride 99 L Carbon Dioxide 25 Anion Gap 10.0 BUN 19 Creatinine 0.6 Estimated GFR (MDRD) 95 Glucose 214 H Calcium 9.5 Total Bilirubin 0.7 AST 19 ALT < 10 L Alkaline Phosphatase 71 Total Protein 7.0 Albumin 3.2 Globulin 3.8 Albumin/Globulin Ratio 0.8 L Lipase 21 L Urine Color YELLOW Urine Clarity CLEAR Urine pH 5.5 Ur Specific [place] >=1.030 H Urine Protein NEGATIVE Urine Glucose (UA) 100 H Urine Ketones NEGATIVE Urine Occult Blood NEGATIVE Urine Nitrite NEGATIVE Urine Bilirubin NEGATIVE Urine Urobilinogen 0.2 (NORMAL) Ur Leukocyte Esterase NEGATIVE Ur Microscopic Review NOT INDICATED Urine Culture Comments NOT INDICATED PD MEDICAL DECISION MAKING - ED course Complexity details: reviewed results, re-evaluated patient, considered differential, d/w family ED course: The patient was worked up with labs, chest x-ray, and urinalysis. She was given a liter of 0.9 normal saline. The work-up was unremarkable. Patient's daughter was spoken with and informed that at this time patient has been treated for Dehydration, and no specific etiology for her altered mental status is been found. Patient will be transported back to her alf facility, where family will continue the process of arranging comfort care. We have discussed the usual indications for return. Departure - Departure Disposition: 01 Home, Self Care Clinical Impression: Dehydration Altered mental status Qualifiers: Altered mental status type: delirium Qualified Code(s): R41.0 - Disorientation, unspecified Condition: Stable Instructions: ED Altered Loc, ED Dehydration Comments: A full laboratory panel, urinalysis, and chest x-ray were all performed in the emergency department. Additionally, Ms. Cota was given a full liter of saline. Her urine was concentrated, which does indicate dehydration. However, there is no evidence of infection on urinalysis. Her white blood cell count was normal and she was not anemic on blood work. Her laboratory studies showed a few very minor abnormalities but nothing that should explain any sort of alteration in mental status. It is difficult to say why Ms. Cota does not wish to eat over the last week, but unfortunately, and this is a common scenario in patients with advanced dementia and advanced age. No specific cause otherwise has been found. Please continue to encourage her to drink fluids to stay hydrated, and have her primary doctor follow her closely. Discharge Date/Time: 05/08/21 14:42
[2021-05-08 12:41] LABS: BILIRUBIN,URINE NEGATIVE (NEGATIVE); GLUCOSE, URINE (UA) 100 mg/dL (NEGATIVE); KETONES,URINE (UA) NEGATIVE (NEGATIVE); LEUKOCYTE ESTERASE, URINE NEGATIVE (NEGATIVE); NITRITE,URINE NEGATIVE (NEGATIVE); OCCULT BLOOD,URINE NEGATIVE (NEGATIVE); PH,URINE 5.5 PH (5.0-7.5); PROTEIN,URINE NEGATIVE (NEGATIVE); UROBILINOGEN,URINE 0.2 (NORMAL) E.U./dL (NORMAL)
[2021-05-08 12:42] LABS: CLARITY,URINE CLEAR (CLEAR)
[2021-05-08 14:27] VITALS: BP 108/55
== END 2021-05-08 14:42 | disposition home or self-care (01) ==
LOC: EDUNIT# → ED 11:24
DX: E86.0 Dehydration (principal); R41.0 Disorientation, unspecified; Z66 Do not resuscitate; I10 Essential (primary) hypertension; E11.9 Type 2 diabetes mellitus without complications; Z79.4 Long term (current) use of insulin
CPT/HCPCS: 36415; 80053; 81001; 81003; 83690; 85025; 87086; 96360; 96361; 99281

== ENCOUNTER 2021-05-08 14:45 | Outpatient (CLI) | payer MEDICARE, OTHER | END 2021-05-08 14:46 | disposition home or self-care (01) | LOC: EMS 14:45 | PROVIDERS: ATTEND Emergency Medicine | DX: F03.90 Unspecified dementia, unspecified severity, without behavioral disturbance, psychotic disturbance, mood disturbance, and anxiety (principal); R41.0 Disorientation, unspecified; E86.0 Dehydration; Z74.01 Bed confinement status | CPT/HCPCS: A0425; A0428 ==